=== PATIENT | female | born 1935 | race Caucasian/White ===

== ENCOUNTER 2017-08-29 21:55 | Inpatient (IN) | payer MEDICARE, MEDICAID ==
--- NOTE | 2017-08-29 22:03 | ED Physician Chart ---
ED Chief Complaint/HPI - Patient Information Date Seen:: 08/29/17 Time Seen:: 21:50 Chief Complaint:: abnormal labs History of Present Illness:: Patient had a 11,000 white blood cell count and an abnormal chest x-ray today. Chest x-ray showed right lower lobe infiltrate. Allergies:: Allergies Allergy/AdvReac Type Severity Reaction Status Date / Time meperidine Allergy Verified 12/28/16 19:11 Historian:: EMS Review:: Transfer documents Reviewed ED Review of Systems - Review of Systems General/Constitutional: No fever, No chills Skin: No skin lesions Head: No headache Eyes: No loss of vision ENT: No earache Neck: No neck pain Cardio Vascular: No chest pain, No palpitations Pulmonary: No SOB, Cough GI: No nausea, No vomiting, No diarrhea G/U: No dysuria Musculoskeletal: No bone or joint pain Endocrine: No polyuria, No polydipsia Psychiatric: Prior psych history Hematopoietic: No bruising Allergic/Immuno: No urticaria ED Past Medical History - Past Medical History Past Medical History: Dyslipidemia, Dementia, Other (status post pneumonia; status post sepsis; hyperlipidemia) Family Medical History - Family Member Mother History Unknown: Yes ED Physical Exam - Physical Examination Other Gen/Cons comments:: Chronically ill appearing; verbally nonresponsive Head: Atraumatic Eyes: Lids, conjuctiva normal Skin: Nl inspection ENMT: External ears, nose nl Neck: No JVD Respiratory: Nl effort/Exclusion, Clear to Auscultation Cardio Vascular: RRR Other Cardio Vascular comments:: Heart sounds faint; pulse regular GI: No tenderness/rebounding/guarding Extremities: Normal digits & nails Neuro/Psych: No focal deficits ED Labs/Radiology/EKG Results - Lab Results Results: Laboratory Results - last 24 hr 08/29/17 08/29/17 22:11 22:11 WBC 11.8 H D RBC 2.75 L Hgb 8.3 L Hct 25.9 L MCV 94.4 MCH 30.3 MCHC Differential 32.1 RDW 13.8 Plt Count 494 H D MPV 9.3 Neutrophils % 81.7 H Lymphocytes % 12.5 L Monocytes % 4.0 Eosinophils % 1.6 Basophils % 0.2 Sodium 142 Potassium 4.2 Chloride 113 H Carbon Dioxide 21.3 Anion Gap 11.9 BUN 41 H Creatinine 0.9 Est GFR ( Amer) TNP Est GFR (Non-Af Amer) TNP BUN/Creatinine Ratio 45.6 Glucose 107 H Calcium 9.5 - Radiology Results Comments:: Chest x-ray showed small right basilar infiltrate ED Septic Shock - . Is Septic Shock (SBP<90, OR Lactate>4 mmol\L) present?: No ED Reassessment (Disposition) - Reassessment Reassessment Condition:: Unchanged - Diagnosis Diagnosis:: Anemia; dehydration; pneumonia - Patient Disposition Admitting Medical Physician:: German Patel Condition at Disposition:: Stable, Unchanged
[2017-08-29 22:18] LABS: % BASOPHILS 0.2 % (0.0-2.0); % EOSINOPHILS 1.6 % (0.0-5.0); % LYMPHOCYTES 12.5 % (20.0-50.0); % NEUTROPHILS 81.7 % (40.0-80.0); EOSINOPHILE ABSOLUTE 0.2 Th/cmm (0.1-0.4); HEMATOCRIT 25.9 % (41.0-60); HEMOGLOBIN 8.3 gm/dL (12-16); LYMPHOCYTE ABSOLUTE 1.5 Th/cmm (1.5-3.0); MEAN CELL VOLUME 94.4 fl (81-100); MEAN CORPUSCULAR HEMOGLOBIN 30.3 pg (27.0-31.0); MEAN CORPUSCULAR HGB CONC 32.1 pg (28.0-36.0); MEAN PLATELET VOLUME 9.3 fl; MONOCYTE ABSOLUTE 0.5 Th/cmm (0.3-1.0); NEUTROPHILE ABSOLUTE 9.6 Th/cmm (1.8-8.0); RED BLOOD COUNT 2.75 Mil/cmm (3.80-5.20); RED CELL DISTRIBUTION WIDTH 13.8 % (11.5-20.0)
[2017-08-29 22:20] LABS: PLATELET COUNT 494 Th/cmm (150-400); WHITE BLOOD COUNT 11.8 Th/cmm (4.8-10.8)
[2017-08-29 22:34] LABS: ANION GAP 11.9 (7.0-16.0); BUN - UREA NITROGEN 41 mg/dL (7-25); CALCIUM SERUM 9.5 mg/dL (8.6-10.3); CARBON DIOXIDE 21.3 mEq/L (21.0-31.0); CHLORIDE 113 mEq/L (98-107); CREATININE - SERUM 0.9 mg/dL (0.6-1.2); GLUCOSE 107 mg/dL (70-105); POTASSIUM SERUM 4.2 mEq/L (3.5-5.1); SODIUM SERUM 142 mEq/L (136-145)
[2017-08-29] MEDS ORDERED: Sodium Chloride 0.9% 1,000 ML IV ONE ×2 (23:05→23:12)
[2017-08-29] MEDS ORDERED: Maalox 30 mL Cup PO PRN (23:08)
[2017-08-29] MEDS ORDERED: guaiFENesin 200 MG/10 ML UDC PO PRN (23:08)
[2017-08-29] MEDS ORDERED: Piperacillin Sodium/Tazobact 3.375 gm Vial IV ONE (23:19)
[2017-08-30 02:12] VITALS: BP 128/68
[2017-08-30] MEDS: D5-0.45NS 1,000 ML IV SCH ×2 (04:00→20:53)
[2017-08-30] MEDS: Ipratropium Neb 0.5 mg/2.5 mL UD IH SCH ×4 (08:18→19:59)
[2017-08-30] MEDS: Albuterol Nebulizer 2.5mg/3mL HHN SCH ×4 (08:18→19:59)
--- NOTE | 2017-08-30 08:33 | Diagnostic Imaging Report ---
Exam: Portable chest x-ray HISTORY: Cough. Findings: Portable examination of the chest at 2241 hours reviewed the study compared to prior exam of 12/28/2016 The study demonstrates atelectatic changes in the bases. Infiltrates cannot be excluded. The costophrenic angles are clear bony thorax intact. Lung parenchyma is well aerated. COPD changes are noted IMPRESSION: Basilar atelectasis, but infiltrates cannot be excluded, COPD changes no acute disease.
[2017-08-30] MEDS: POLYETHYLENE GLYCOL 3350 17 GM PACK PO SCH (08:56)
[2017-08-30] MEDS: Calcium Carb/Vit D 500 mg/200 U Tab PO SCH ×2 (08:56→16:25)
[2017-08-30] MEDS: Aspirin 81mg Chewable Tab PO SCH (08:56)
[2017-08-30] MEDS: Ferrous Sulfate 325 MG TAB PO SCH ×2 (08:56→16:25)
[2017-08-30] MEDS ORDERED: LACTOSE REDUCED FOOD PO SCH (09:00)
[2017-08-30] MEDS ORDERED: Probiotic Screen MC PRN (09:15)
--- NOTE | 2017-08-30 12:43 | Internal Medicine Prog Note ---
Internal Medicine Subjective - Subjective Service Date: 08/30/17 ([id number] [facility] dictated) Internal Medicine Objective - Results Result Diagrams: 08/29/17 22:11 08/29/17 22:11 Recent Labs: Laboratory Last Values WBC 11.8 Th/cmm (4.8-10.8) H D 08/29/17 22:11 RBC 2.75 Mil/cmm (3.80-5.20) L 08/29/17 22:11 Hgb 8.3 gm/dL (12-16) L 08/29/17 22:11 Hct 25.9 % (41.0-60) L 08/29/17 22:11 MCV 94.4 fl (81-100) 08/29/17 22:11 MCH 30.3 pg (27.0-31.0) 08/29/17 22:11 MCHC Differential 32.1 pg (28.0-36.0) 08/29/17 22:11 RDW 13.8 % (11.5-20.0) 08/29/17 22:11 Plt Count 494 Th/cmm (150-400) H D 08/29/17 22:11 MPV 9.3 fl 08/29/17 22:11 Neutrophils % 81.7 % (40.0-80.0) H 08/29/17 22:11 Lymphocytes % 12.5 % (20.0-50.0) L 08/29/17 22:11 Monocytes % 4.0 % (2.0-10.0) 08/29/17 22:11 Eosinophils % 1.6 % (0.0-5.0) 08/29/17 22:11 Basophils % 0.2 % (0.0-2.0) 08/29/17 22:11 Sodium 142 mEq/L (136-145) 08/29/17 22:11 Potassium 4.2 mEq/L (3.5-5.1) 08/29/17 22:11 Chloride 113 mEq/L (98-107) H 08/29/17 22:11 Carbon Dioxide 21.3 mEq/L (21.0-31.0) 08/29/17 22:11 Anion Gap 11.9 (7.0-16.0) 08/29/17 22:11 BUN 41 mg/dL (7-25) H 08/29/17 22:11 Creatinine 0.9 mg/dL (0.6-1.2) 08/29/17 22:11 Est GFR ( Amer) TNP 08/29/17 22:11 Est GFR (Non-Af Amer) TNP 08/29/17 22:11 BUN/Creatinine Ratio 45.6 08/29/17 22:11 Glucose 107 mg/dL (70-105) H 08/29/17 22:11 Calcium 9.5 mg/dL (8.6-10.3) 08/29/17 22:11 - Physical Exam Vitals and I&O: Vital Signs Temp 98.2 F 08/30/17 12:00 Pulse 76 08/30/17 12:00 Resp 18 08/30/17 12:00 BP 136/70 08/30/17 12:00 Pulse Ox 94 08/30/17 11:31 Intake & Output 08/29/17 08/30/17 08/30/17 18:59 06:59 18:59 Weight (lbs) 131 lb 6.4 oz Other: Stool Characteristics Soft Soft Formed Formed Brown Brown Active Medications: Current Medications Acetaminophen (Tylenol) 650 mg PO Q4H PRN PRN Reason: Pain Or Fever above 101 Stop: 10/28/17 23:07 Al Hydrox/Mg Hydrox/Simethicone (Maalox) 30 ml PO Q6H PRN PRN Reason: Dyspepsia Stop: 10/28/17 23:07 Albuterol Sulfate (Albuterol 2.5mg/3ml Neb Ud) 2.5 mg HHN QIDRT [facility] Stop: 10/29/17 06:59 Last Admin: 08/30/17 11:29 Dose: 2.5 mg Aspirin (Aspirin Chewable) 81 mg PO DAILY [facility] Stop: 10/29/17 08:59 Last Admin: 08/30/17 08:56 Dose: 81 mg Bupropion HCl (Wellbutrin Sr) 150 mg PO DAILY [facility] PRN Reason: Protocol Stop: 10/29/17 08:59 Last Admin: 08/30/17 08:56 Dose: 150 mg Buspirone HCl (Buspar) 2.5 mg PO BID [facility] PRN Reason: Protocol Stop: 10/29/17 08:59 Last Admin: 02/06/18 08:56 Dose: 2.5 mg Calcium/Vitamin D (Oscal W/Vitamin D) 1 tab PO BID [facility] Stop: 10/29/17 08:59 Last Admin: 08/30/17 08:56 Dose: 1 tab Ferrous Sulfate (Iron) 325 mg PO BID [facility] Stop: 10/29/17 08:59 Last Admin: 08/30/17 08:56 Dose: 325 mg Guaifenesin (Robitussin) 200 mg PO Q4HR PRN PRN Reason: Cough or Congestion Stop: 10/28/17 23:07 Heparin Sodium (Porcine) (Heparin) 5,000 units SUBQ Q12HR [facility] Stop: 10/29/17 08:59 Last Admin: 08/30/17 08:56 Dose: 5,000 units Dextrose/Sodium Chloride (D5-0.45ns) 1,000 mls @ 80 mls/hr IV .[id number] [facility] Stop: 10/28/17 23:14 Last Admin: 08/30/17 04:00 Dose: 80 mls/hr Cefepime HCl 1 gm/ Dextrose 50 mls @ 100 mls/hr IV Q12HR [facility] Stop: 10/29/17 08:59 Last Admin: 08/30/17 08:55 Dose: 100 mls/hr Ipratropium [place] (Atrovent Neb 0.5mg/2.5ml) 0.5 mg IH QIDRT [facility] Stop: 10/29/17 06:59 Last Admin: 08/30/17 11:29 Dose: 0.5 mg Lactobacillus Rhamnosus (Culturelle 15b) 1 each PO DAILY [facility] Stop: 10/30/17 08:59 Lisinopril (Zestril) 20 mg PO BID [facility] Stop: 10/29/17 08:59 Last Admin: 08/30/17 08:55 Dose: 20 mg Lorazepam (Ativan) 0.5 mg PO Q6HR PRN; Protocol PRN Reason: Anxiety Stop: 10/28/17 23:05 Lorazepam (Ativan) 1 mg IV Q4H PRN; Protocol PRN Reason: Seizure Stop: 10/28/17 23:07 Last Admin: 08/30/17 06:56 Dose: 1 mg Miscellaneous (Probiotic Screen) 1 ea [facility] PRN PRN PRN Reason: PROTOCOL Stop: 10/29/17 09:14 Miscellaneous (Vte Chemical Prophylaxis Screen/ Admission) 1 ea [facility] PRN PRN PRN Reason: PROTOCOL Stop: 10/29/17 12:44 Olanzapine (Zyprexa) 5 mg PO HS [facility] PRN Reason: Protocol Stop: 10/29/17 20:59 Ondansetron HCl (Zofran) 4 mg IV Q8H PRN PRN Reason: Nausea / Vomiting Stop: 10/28/17 23:07 Polyethylene Glycol (Miralax) 17 gm PO DAILY [facility] Stop: 10/29/17 08:59 Last Admin: 08/30/17 08:56 Dose: 17 gm - Procedures Procedures: Procedures Procedure Code Date INTRODUCTION OF SERUM/TOX/VACCINE INTO MUSCLE, PERC APPROACH [id number] 12/28/16
[2017-08-30] MEDS ORDERED: VTE Chemical Prophylaxis Screen/Admission MC PRN (12:45)
--- NOTE | 2017-08-30 12:53 | History & Physical ---
ADMIT DATE: 08/30/2017 CHIEF COMPLAINT: Abnormal chest x-ray. HISTORY OF PRESENT ILLNESS: This is an 82-year-old female who is a resident of [facility] who is well known to me. I was called on this patient due to a chest x-ray showing right lower lobe infiltrates as well as with WBC of 11,000. The patient's family requested the patient to be admitted to the hospital as well. PAST MEDICAL HISTORY: Dyslipidemia, dementia, pneumonia, sepsis, hyperlipidemia. PAST SURGICAL HISTORY: Unknown. SOCIAL HISTORY: The patient is a long term resident, transferred for nursing care. FAMILY HISTORY: Noncontributory. REVIEW OF SYSTEMS: Unable to obtain due to patient's mental status. PHYSICAL EXAMINATION: GENERAL: This is an elderly female, awake with confusion, no apparent distress. VITAL SIGNS: Temperature 99.2, heart rate 76, blood pressure 136/70, respiration 18. HEENT: Head normocephalic, atraumatic. NECK: Supple. No mass. LUNGS: Scattered rhonchi. CARDIOVASCULAR: Regular rate and rhythm. ABDOMEN: Soft, nontender. DIAGNOSTICS: The patient had a chest x-ray done and the impression is basilar atelectasis, infiltrate cannot be excluded, COPD changes. LABORATORY DATA: WBC 11.8, H and H 8.3 and 25.9, platelet of 494. Sodium 142, potassium 4.2, chloride 113, BUN 41, creatinine 0.9. ASSESSMENT: Pneumonia, leukocytosis, acute renal insufficiency, anemia, dementia. PLAN: The patient was to be admitted to the med/surg. We will keep the patient on IV antibiotics of Maxipime 1 gram IV every 12 hours. Monitor patient's labs and IV fluids for hydration, bronchodilators, supplemental oxygen. We will continue to follow this patient. JOB# [id number]
--- NOTE | 2017-08-30 14:53 | Diagnostic Imaging Report ---
Head CT without intravenous contrast Indication: Fluid draining from the ears and neck Comparison: Head CT on 01/07/2017 Technique: Axial images were obtained from the vertex to the skull base without IV contrast. Coronal reconstructions were made. Total DLP: 680, CTDI34 FINDINGS: Images of the brain obtained without contrast demonstrate no evidence of an acute hemorrhage. Atrophy is noted. Mild white matter disease is noted. The ventricles and basal cisterns are patent. No mass effect or midline shift. There is diffuse opacification of bilateral mastoid air cells. No obvious erosions identified. Paranasal sinus inflammatory disease is noted including partial opacification left posterior ethmoid air cells and left sphenoid sinus with air-fluid level of the left sphenoid sinus. No evidence of a skull fracture or focal soft tissue swelling. IMPRESSION: No evidence of acute intracranial hemorrhage Atrophy. Mild supratentorial white matter disease which is nonspecific and may be due to chronic microvessel ischemia. Diffuse bilateral mastoid air cell opacification. Please correlate clinically for otomastoiditis. Sinus inflammatory disease greatest within the left sphenoid sinus with small air-fluid level noted.
--- NOTE | 2017-08-30 14:57 | Diagnostic Imaging Report ---
CT cervical spine without IV contrast HISTORY: Fluid drained from the neck and ears COMPARISON: Head CT the same day Technique: Axial images were obtained from the skull base to the upper thoracic spine without IV contrast. Multiplanar reconstructions were made. Total DLP: 401, CTDI17 FINDINGS: Exam is limited due to motion. There is loss of the cervical lordosis. No gross fracture is identified. There is 2 mm anterolisthesis of C3 on C4. Extensive multilevel facet and discogenic degenerative changes are noted with multilevel disc space loss of height and multilevel spinal canal and neural foraminal encroachment. No prevertebral soft tissue swelling. Markedly enlarged thyroid gland is noted. Partially visualized right pleural effusion is noted. Atherosclerosis is noted. IMPRESSION: Limited exam due to motion. No gross fracture identified. Loss of the cervical lordosis. Extensive degenerative changes. 2 mm anterolisthesis of C3 on C4 likely due to facet arthropathy. Markedly enlarged thyroid gland. Consider follow-up with ultrasound. Right pleural effusion partially visualized.
[2017-08-30 18:26] LABS: URINE MICROSCOPIC INDICATED? YES; URINE SOURCE CLEAN C
[2017-08-30 18:27] LABS: URINE BILIRUBIN NEGATIVE (NEGATIVE); URINE BLOOD NEGATIVE (NEGATIVE); URINE GLUCOSE (UA) NEGATIVE (NEGATIVE); URINE KETONE NEGATIVE (NEGATIVE); URINE LEUKOCYTE ESTERASE NEGATIVE (NEGATIVE); URINE NITRATE NEGATIVE (NEGATIVE); URINE PROTEIN NEGATIVE (NEGATIVE); URINE UROBILINOGEN 0.2 E.U./dL (0.2 - 1.0)
[2017-08-30 18:56] LABS: URINE CLARITY CLEAR (CLEAR); URINE COLOR YELLOW; URINE EPITHELIAL CELLS NONE SEEN /lpf (FEW); URINE RBC NONE SEEN /hpf (0-5); URINE WBC NONE SEEN /hpf (0-5)
[2017-08-30 18:57] LABS: URINE BACTERIA NONE SEEN /hpf (NONE SEEN)
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
[2017-08-31] MEDS: Ipratropium Neb 0.5 mg/2.5 mL UD IH SCH ×4 (08:24→19:44)
[2017-08-31] MEDS: Albuterol Nebulizer 2.5mg/3mL HHN SCH ×4 (08:24→19:44)
[2017-08-31] MEDS: Aspirin 81mg Chewable Tab PO SCH (09:18)
[2017-08-31] MEDS: Lactobacillus Rhamnosus GG 15 Billion CFU CAP.SPRINK PO SCH (09:18)
[2017-08-31] MEDS: Calcium Carb/Vit D 500 mg/200 U Tab PO SCH ×2 (09:18→18:01)
[2017-08-31] MEDS: Ferrous Sulfate 325 MG TAB PO SCH ×2 (09:29→18:02)
[2017-08-31] MEDS: POLYETHYLENE GLYCOL 3350 17 GM PACK PO SCH (09:30)
--- NOTE | 2017-08-31 12:46 | Internal Medicine Prog Note ---
Internal Medicine Subjective - Subjective Service Date: 08/31/17 Patient seen and examined:: with staff Patient is:: awake, verbal, confused Per staff patient has:: tolerating meds Internal Medicine Objective - Results Result Diagrams: 08/29/17 22:11 08/29/17 22:11 Recent Labs: Laboratory Last Values WBC 11.8 Th/cmm (4.8-10.8) H D 08/29/17 22:11 RBC 2.75 Mil/cmm (3.80-5.20) L 08/29/17 22:11 Hgb 8.3 gm/dL (12-16) L 08/29/17 22:11 Hct 25.9 % (41.0-60) L 08/29/17 22:11 MCV 94.4 fl (81-100) 08/29/17 22:11 MCH 30.3 pg (27.0-31.0) 08/29/17 22:11 MCHC Differential 32.1 pg (28.0-36.0) 08/29/17 22:11 RDW 13.8 % (11.5-20.0) 08/29/17 22:11 Plt Count 494 Th/cmm (150-400) H D 08/29/17 22:11 MPV 9.3 fl 08/29/17 22:11 Neutrophils % 81.7 % (40.0-80.0) H 08/29/17 22:11 Lymphocytes % 12.5 % (20.0-50.0) L 08/29/17 22:11 Monocytes % 4.0 % (2.0-10.0) 08/29/17 22:11 Eosinophils % 1.6 % (0.0-5.0) 08/29/17 22:11 Basophils % 0.2 % (0.0-2.0) 08/29/17 22:11 Sodium 142 mEq/L (136-145) 08/29/17 22:11 Potassium 4.2 mEq/L (3.5-5.1) 08/29/17 22:11 Chloride 113 mEq/L (98-107) H 08/29/17 22:11 Carbon Dioxide 21.3 mEq/L (21.0-31.0) 08/29/17 22:11 Anion Gap 11.9 (7.0-16.0) 08/29/17 22:11 BUN 41 mg/dL (7-25) H 08/29/17 22:11 Creatinine 0.9 mg/dL (0.6-1.2) 08/29/17 22:11 Est GFR ( Amer) TNP 08/29/17 22:11 Est GFR (Non-Af Amer) TNP 08/29/17 22:11 BUN/Creatinine Ratio 45.6 08/29/17 22:11 Glucose 107 mg/dL (70-105) H 08/29/17 22:11 Calcium 9.5 mg/dL (8.6-10.3) 08/29/17 22:11 Urine Source CLEAN C 08/30/17 16:58 Urine Color YELLOW 08/30/17 16:58 Urine Clarity CLEAR (CLEAR) 08/30/17 16:58 Urine pH 6.0 (4.6 - 8.0) 08/30/17 16:58 Ur Specific [place] 1.015 (1.005-1.030) 08/30/17 16:58 Urine Protein NEGATIVE mg/dL (NEGATIVE) 08/30/17 16:58 Urine Glucose (UA) NEGATIVE mg/dL (NEGATIVE) 08/30/17 16:58 Urine Ketones NEGATIVE mg/dL (NEGATIVE) 08/30/17 16:58 Urine Blood NEGATIVE (NEGATIVE) 08/30/17 16:58 Urine Nitrate NEGATIVE (NEGATIVE) 08/30/17 16:58 Urine Bilirubin NEGATIVE (NEGATIVE) 08/30/17 16:58 Urine Urobilinogen 0.2 E.U./dL (0.2 - 1.0) 08/30/17 16:58 Ur Leukocyte Esterase NEGATIVE (NEGATIVE) 08/30/17 16:58 Urine RBC NONE SEEN /hpf (0-5) 08/30/17 16:58 Urine WBC NONE SEEN /hpf (0-5) 08/30/17 16:58 Ur Epithelial Cells NONE SEEN /lpf (FEW) 08/30/17 16:58 Urine Bacteria NONE SEEN /hpf (NONE SEEN) 08/30/17 16:58 - Physical Exam Vitals and I&O: Vital Signs Temp 98.7 F 08/31/17 04:00 Pulse 84 08/31/17 11:34 Resp 20 08/31/17 11:34 BP 135/50 08/31/17 09:18 Pulse Ox 95 08/31/17 11:34 Intake & Output 08/30/17 08/31/17 08/31/17 18:59 06:59 18:59 Intake Total 1050 250 Balance 1050 250 Weight (lbs) 135 lb 6.4 oz Intake: Intake, IV Amount 1050 50 Cefepime 1 gm In Dextrose 50 50 5% 50 ml @ 100 mls/hr IV Q12HR [facility] Rx#:[id number] D5-0.45NS 1,000 ml @ 80 1000 mls/hr IV .[id number] [facility] Rx #:[id number] Oral 200 Other: # Voids 3 # Bowel Movements 2 Stool Characteristics Soft Soft Soft Formed Formed Formed Brown Brown Brown Active Medications: Current Medications Acetaminophen (Tylenol) 650 mg PO Q4H PRN PRN Reason: Pain Or Fever above 101 Stop: 10/28/17 23:07 Al Hydrox/Mg Hydrox/Simethicone (Maalox) 30 ml PO Q6H PRN PRN Reason: Dyspepsia Stop: 10/28/17 23:07 Albuterol Sulfate (Albuterol 2.5mg/3ml Neb Ud) 2.5 mg HHN QIDRT [facility] Stop: 10/29/17 06:59 Last Admin: 08/31/17 11:34 Dose: 2.5 mg Aspirin (Aspirin Chewable) 81 mg PO DAILY [facility] Stop: 10/29/17 08:59 Last Admin: 08/31/17 09:18 Dose: 81 mg Buspirone HCl (Buspar) 5 mg PO BID [facility] PRN Reason: Protocol Stop: 10/29/17 17:53 Calcium/Vitamin D (Oscal W/Vitamin D) 1 tab PO BID [facility] Stop: 10/29/17 08:59 Last Admin: 08/31/17 09:18 Dose: 1 tab Ferrous Sulfate (Iron) 325 mg PO BID [facility] Stop: 10/29/17 08:59 Last Admin: 08/31/17 09:29 Dose: 325 mg Guaifenesin (Robitussin) 200 mg PO Q4HR PRN PRN Reason: Cough or Congestion Stop: 10/28/17 23:07 Heparin Sodium (Porcine) (Heparin) 5,000 units SUBQ Q12HR [facility] Stop: 10/29/17 08:59 Last Admin: 08/31/17 09:30 Dose: 5,000 units Dextrose/Sodium Chloride (D5-0.45ns) 1,000 mls @ 80 mls/hr IV .[id number] [facility] Stop: 10/28/17 23:14 Last Admin: 08/30/17 20:53 Dose: 80 mls/hr Cefepime HCl 1 gm/ Sodium (Chloride) 50 mls @ 100 mls/hr IV DAILY [facility] Stop: 10/31/17 08:59 Ipratropium [place] (Atrovent Neb 0.5mg/2.5ml) 0.5 mg IH QIDRT [facility] Stop: 10/29/17 06:59 Last Admin: 08/31/17 11:34 Dose: 0.5 mg Lactobacillus Rhamnosus (Culturelle 15b) 1 each PO DAILY [facility] Stop: 10/30/17 08:59 Last Admin: 08/31/17 09:18 Dose: 1 each Lisinopril (Zestril) 20 mg PO BID [facility] Stop: 10/29/17 08:59 Last Admin: 08/31/17 09:18 Dose: 20 mg Lorazepam (Ativan) 0.5 mg PO Q6HR PRN; Protocol PRN Reason: Anxiety Stop: 10/28/17 23:05 Last Admin: 08/30/17 21:07 Dose: 0.5 mg Lorazepam (Ativan) 1 mg IV Q4H PRN; Protocol PRN Reason: Seizure Stop: 10/28/17 23:07 Last Admin: 08/30/17 06:56 Dose: 1 mg Miscellaneous (Probiotic Screen) 1 ea PRN PRN PRN Reason: PROTOCOL Stop: 10/29/17 09:14 Miscellaneous (Vte Chemical Prophylaxis Screen/ Admission) 1 ea PRN PRN PRN Reason: PROTOCOL Stop: 10/29/17 12:44 Miscellaneous (Clinical Monitoring) 1 ea PRN PRN PRN Reason: CEFEPIME RENAL DOSE Stop: 10/30/17 10:15 Olanzapine (Zyprexa) 5 mg PO HS [facility] PRN Reason: Protocol Stop: 10/29/17 20:59 Last Admin: 08/30/17 21:07 Dose: 5 mg Ondansetron HCl (Zofran) 4 mg IV Q8H PRN PRN Reason: Nausea / Vomiting Stop: 10/28/17 23:07 Polyethylene Glycol (Miralax) 17 gm PO DAILY [facility] Stop: 10/29/17 08:59 Last Admin: 08/31/17 09:30 Dose: 17 gm General: weak HEENT: NC/AT, PERRLA Neck: Supple Lungs: CTAB Cardiovascular: RRR, Normal S1, Normal S2 Abdomen: soft, non-tender, non-distended, positive bowel sound Extremities: excoriation Neurological: alert - Procedures Procedures: Procedures Procedure Code Date INTRODUCTION OF SERUM/TOX/VACCINE INTO MUSCLE, PERC APPROACH [id number] 12/28/16 Internal Medicine Assmt/Plan - Assessment Assessment: pna leukocytosis acute renal insufficiency anemia dementia - Plan Plan: continue ivabx bronchodilators supplemental oxygen ivf for hydration continue current orders
[2017-08-31] MEDS: D5-0.45NS 1,000 ML IV SCH (15:56)
--- NOTE | 2017-09-01 00:33 | Progress Notes ---
DATE: 08/31/2017 SUBJECTIVE: The patient was seen, chart reviewed, discussed with staff, much less anxious, less irritable, less agitated today. The patient is superficial, smiling, affect little bit on the low side. MENTAL STATUS EXAMINATION: The patient is oriented to person, not oriented to time or place. Thought process fragmented. Insight is limited. Even with [place] speaking staff, the patient is not able to communicate well. ASSESSMENT: The patient is much less agitated, was somewhat confused. PLAN: Will continue to monitor closely. Continue current medication regimen. Continue supportive measures. Will monitor p.o. intake. JOB# [id number]
[2017-09-01] MEDS: Ipratropium Neb 0.5 mg/2.5 mL UD IH SCH ×4 (07:19→18:56)
[2017-09-01] MEDS: Albuterol Nebulizer 2.5mg/3mL HHN SCH ×4 (07:19→18:56)
--- NOTE | 2017-09-01 08:30 | Diagnostic Imaging Report ---
CHEST X-RAY: AP view INDICATION: Pneumonia COMPARISON: 08/29/2017 FINDINGS: Developing hazy right mid to right lower lung zone infiltrate is noted with small right effusion. Cardiomegaly is noted with atherosclerosis. IMPRESSION: Developing hazy right mid to right lower lung zone infiltrate and small right effusion. Cardiomegaly and atherosclerotic vascular disease.
[2017-09-01 08:43] LABS: % BASOPHILS 0.4 % (0.0-2.0); % EOSINOPHILS 3.7 % (0.0-5.0); % LYMPHOCYTES 25.7 % (20.0-50.0); % MONOCYTES 5.3 % (2.0-10.0); % NEUTROPHILS 64.9 % (40.0-80.0); EOSINOPHILE ABSOLUTE 0.2 Th/cmm (0.1-0.4); HEMATOCRIT 24.6 % (41.0-60); HEMOGLOBIN 8.2 gm/dL (12-16); LYMPHOCYTE ABSOLUTE 1.5 Th/cmm (1.5-3.0); MEAN CELL VOLUME 93.1 fl (81-100); MEAN CORPUSCULAR HGB CONC 33.3 pg (28.0-36.0); MEAN PLATELET VOLUME 8.7 fl; MONOCYTE ABSOLUTE 0.3 Th/cmm (0.3-1.0); PLATELET COUNT 540 Th/cmm (150-400); RED BLOOD COUNT 2.64 Mil/cmm (3.80-5.20); RED CELL DISTRIBUTION WIDTH 13.2 % (11.5-20.0)
[2017-09-01 08:55] LABS: ALB/GLOB RATIO 0.9 (1.0-1.8); ALBUMIN 2.9 gm/dL (3.7-5.3); ALKALINE PHOSPHATASE 87 U/L (34-104); ANION GAP 9.4 (7.0-16.0); BILIRUBIN,TOTAL 0.4 mg/dL (0.3-1.0); BUN - UREA NITROGEN 10 mg/dL (7-25); CALCIUM SERUM 9.5 mg/dL (8.6-10.3); CHLORIDE 108 mEq/L (98-107); CREATININE - SERUM 0.8 mg/dL (0.6-1.2); GLUCOSE 120 mg/dL (70-105); MAGNESIUM 1.7 mg/dL (1.9-2.7); POTASSIUM SERUM 3.4 mEq/L (3.5-5.1); SGOT 12 U/L (13-39); SGPT/ALT 13 U/L (7-52); SODIUM SERUM 138 mEq/L (136-145); TOTAL PROTEIN,SERUM 6.2 gm/dL (6.0-8.3)
[2017-09-01] MEDS: Calcium Carb/Vit D 500 mg/200 U Tab PO SCH ×2 (09:40→17:31)
[2017-09-01] MEDS: Aspirin 81mg Chewable Tab PO SCH (09:40)
[2017-09-01] MEDS: Ferrous Sulfate 325 MG TAB PO SCH ×2 (09:41→17:30)
[2017-09-01] MEDS: Lactobacillus Rhamnosus GG 15 Billion CFU CAP.SPRINK PO SCH (09:41)
[2017-09-01] MEDS: POLYETHYLENE GLYCOL 3350 17 GM PACK PO SCH (09:43)
[2017-09-01] MEDS: Cefepime 1 GM in Sodium Chloride 0.9% 50 ML IV SCH (11:04)
[2017-09-01] MEDS ORDERED: Mag Sulfate 2gm/50mL Premix 2 GM/50 ML BAG IV ONE (12:59)
[2017-09-01] MEDS ORDERED: Potassium Chloride 20 mEq ER Tab PO ONE (12:59)
--- NOTE | 2017-09-01 13:22 | Internal Medicine Prog Note ---
Internal Medicine Subjective - Subjective Service Date: 09/01/17 Patient is:: awake, verbal, confused Per staff patient has:: tolerating meds Internal Medicine Objective - Results Result Diagrams: 09/01/17 08:31 09/01/17 08: Recent Labs: Laboratory Last Values WBC 6.0 Th/cmm (4.8-10.8) D 09/01/17 08: RBC 2.64 Mil/cmm (3.80-5.20) L 09/01/17 08:31 Hgb 8.2 gm/dL (12-16) L 09/01/17 08:31 Hct 24.6 % (41.0-60) L 09/01/17 08:31 MCV 93.1 fl (81-100) 09/01/17 08: MCH 31.0 pg (27.0-31.0) 09/01/17 08: MCHC Differential 33.3 pg (28.0-36.0) 09/01/17 08: RDW 13.2 % (11.5-20.0) 09/01/17 08: Plt Count 540 Th/cmm (150-400) H 09/01/17 08:31 MPV 8.7 fl 09/01/17 08:31 Neutrophils % 64.9 % (40.0-80.0) 09/01/17 08: Lymphocytes % 25.7 % (20.0-50.0) 09/01/17 08: Monocytes % 5.3 % (2.0-10.0) 09/01/17 08: Eosinophils % 3.7 % (0.0-5.0) 09/01/17 08: Basophils % 0.4 % (0.0-2.0) 09/01/17 08:31 Sodium 138 mEq/L (136-145) 09/01/17 08:31 Potassium 3.4 mEq/L (3.5-5.1) L 09/01/17 08: Chloride 108 mEq/L (98-107) H 09/01/17 08:31 Carbon Dioxide 24.0 mEq/L (21.0-31.0) 09/01/17 08: Anion Gap 9.4 (7.0-16.0) 09/01/17 08:31 BUN 10 mg/dL (7-25) 09/01/17 08:31 Creatinine 0.8 mg/dL (0.6-1.2) 09/01/17 08:31 Est GFR ( Amer) TNP 09/01/17 08:31 Est GFR (Non-Af Amer) TNP 09/01/17 08:31 BUN/Creatinine Ratio 12.5 09/01/17 08:31 Glucose 120 mg/dL (70-105) H 09/01/17 08:31 Calcium 9.5 mg/dL (8.6-10.3) 09/01/17 08:31 Magnesium 1.7 mg/dL (1.9-2.7) L 09/01/17 08:31 Total Bilirubin 0.4 mg/dL (0.3-1.0) 09/01/17 08:31 AST 12 U/L (13-39) L 09/01/17 08:31 ALT 13 U/L (7-52) 09/01/17 08:31 Alkaline Phosphatase 87 U/L (34-104) 09/01/17 08:31 B-Natriuretic Peptide 424.0 pg/mL (5.0-100.0) H 09/01/17 08:31 Total Protein 6.2 gm/dL (6.0-8.3) 09/01/17 08:31 Albumin 2.9 gm/dL (3.7-5.3) L 09/01/17 08:31 Globulin 3.3 gm/dL 09/01/17 08:31 Albumin/Globulin Ratio 0.9 (1.0-1.8) L 09/01/17 08:31 TSH 1.17 uIU/ml (0.34-5.60) 09/01/17 08:31 Urine Source CLEAN C 08/30/17 16:58 Urine Color YELLOW 08/30/17 16:58 Urine Clarity CLEAR (CLEAR) 08/30/17 16:58 Urine pH 6.0 (4.6 - 8.0) 08/30/17 16:58 Ur Specific [place] 1.015 (1.005-1.030) 08/30/17 16:58 Urine Protein NEGATIVE mg/dL (NEGATIVE) 08/30/17 16:58 Urine Glucose (UA) NEGATIVE mg/dL (NEGATIVE) 08/30/17 16:58 Urine Ketones NEGATIVE mg/dL (NEGATIVE) 08/30/17 16:58 Urine Blood NEGATIVE (NEGATIVE) 08/30/17 16:58 Urine Nitrate NEGATIVE (NEGATIVE) 08/30/17 16:58 Urine Bilirubin NEGATIVE (NEGATIVE) 08/30/17 16:58 Urine Urobilinogen 0.2 E.U./dL (0.2 - 1.0) 08/30/17 16:58 Ur Leukocyte Esterase NEGATIVE (NEGATIVE) 08/30/17 16:58 Urine RBC NONE SEEN /hpf (0-5) 08/30/17 16:58 Urine WBC NONE SEEN /hpf (0-5) 08/30/17 16:58 Ur Epithelial Cells NONE SEEN /lpf (FEW) 08/30/17 16:58 Urine Bacteria NONE SEEN /hpf (NONE SEEN) 08/30/17 16:58 - Physical Exam Vitals and I&O: Vital Signs Temp 98.1 F 09/01/17 12:10 Pulse 91 09/01/17 12:10 Resp 18 09/01/17 12:10 BP 135/66 09/01/17 12:10 Pulse Ox 94 09/01/17 11:19 Intake & Output 08/31/17 09/01/17 09/01/17 18:59 06:59 18:59 Intake Total 1600 Balance 1600 Weight (lbs) 135 lb 6.4 oz 135 lb Intake: Intake, IV Amount 1000 D5-0.45NS 1,000 ml @ 80 1000 mls/hr IV .[id number] [facility] Rx #:[id number] Oral 600 Other: # Voids 2 # Bowel Movements 1 Stool Characteristics Soft Soft Formed Formed Brown Brown Active Medications: Current Medications Acetaminophen (Tylenol) 650 mg PO Q4H PRN PRN Reason: Pain Or Fever above 101 Stop: 10/28/17 23:07 Al Hydrox/Mg Hydrox/Simethicone (Maalox) 30 ml PO Q6H PRN PRN Reason: Dyspepsia Stop: 10/28/17 23:07 Albuterol Sulfate (Albuterol 2.5mg/3ml Neb Ud) 2.5 mg HHN QIDRT [facility] Stop: 10/29/17 06:59 Last Admin: 09/01/17 11:18 Dose: 2.5 mg Aspirin (Aspirin Chewable) 81 mg PO DAILY [facility] Stop: 10/29/17 08:59 Last Admin: 09/01/17 09:40 Dose: 81 mg Buspirone HCl (Buspar) 5 mg PO BID [facility] PRN Reason: Protocol Stop: 10/29/17 17:53 Last Admin: 09/01/17 09:42 Dose: 5 mg Calcium/Vitamin D (Oscal W/Vitamin D) 1 tab PO BID [facility] Stop: 10/29/17 08:59 Last Admin: 09/01/17 09:40 Dose: 1 tab Ferrous Sulfate (Iron) 325 mg PO BID [facility] Stop: 10/29/17 08:59 Last Admin: 09/01/17 09:41 Dose: 325 mg Guaifenesin (Robitussin) 200 mg PO Q4HR PRN PRN Reason: Cough or Congestion Stop: 10/28/17 23:07 Last Admin: 08/31/17 21:29 Dose: 200 mg Heparin Sodium (Porcine) (Heparin) 5,000 units SUBQ Q12HR [facility] Stop: 10/29/17 08:59 Last Admin: 09/01/17 10:03 Dose: 5,000 units Dextrose/Sodium Chloride (D5-0.45ns) 1,000 mls @ 80 mls/hr IV .[id number] [facility] Stop: 10/28/17 23:14 Last Admin: 08/31/17 15:56 Dose: 80 mls/hr Cefepime HCl 1 gm/ Sodium (Chloride) 50 mls @ 100 mls/hr IV DAILY [facility] Stop: 10/31/17 08:59 Last Admin: 09/01/17 11:04 Dose: 100 mls/hr Magnesium Sulfate (Magnesium Sulfate Premix) 2 gm in 50 mls @ 25 mls/hr IV X1 ONE Stop: 09/01/17 14:58 Ipratropium [place] (Atrovent Neb 0.5mg/2.5ml) 0.5 mg IH QIDRT [facility] Stop: 10/29/17 06:59 Last Admin: 09/01/17 11:18 Dose: 0.5 mg Lactobacillus Rhamnosus (Culturelle 15b) 1 each PO DAILY [facility] Stop: 10/30/17 08:59 Last Admin: 09/01/17 09:41 Dose: 1 each Lisinopril (Zestril) 20 mg PO BID [facility] Stop: 10/29/17 08:59 Last Admin: 09/01/17 09:42 Dose: 20 mg Lorazepam (Ativan) 0.5 mg PO Q6HR PRN; Protocol PRN Reason: Anxiety Stop: 10/28/17 23:05 Last Admin: 08/31/17 18:02 Dose: 0.5 mg Lorazepam (Ativan) 1 mg IV Q4H PRN; Protocol PRN Reason: Seizure Stop: 10/28/17 23:07 Last Admin: 08/30/17 06:56 Dose: 1 mg Miscellaneous (Probiotic Screen) 1 ea PRN PRN PRN Reason: PROTOCOL Stop: 10/29/17 09:14 Miscellaneous (Vte Chemical Prophylaxis Screen/ Admission) 1 ea PRN PRN PRN Reason: PROTOCOL Stop: 10/29/17 12:44 Miscellaneous (Clinical Monitoring) 1 ea PRN PRN PRN Reason: CEFEPIME RENAL DOSE Stop: 10/30/17 10:15 Olanzapine (Zyprexa) 5 mg PO HS [facility] PRN Reason: Protocol Stop: 10/29/17 20:59 Last Admin: 08/31/17 21:29 Dose: 5 mg Ondansetron HCl (Zofran) 4 mg IV Q8H PRN PRN Reason: Nausea / Vomiting Stop: 10/28/17 23:07 Polyethylene Glycol (Miralax) 17 gm PO DAILY [facility] Stop: 10/29/17 08:59 Last Admin: 09/01/17 09:43 Dose: 17 gm General: weak HEENT: NC/AT, PERRLA Neck: Supple Lungs: CTAB Cardiovascular: RRR, Normal S1, Normal S2 Abdomen: soft, non-tender, non-distended, positive bowel sound Extremities: excoriation Neurological: alert - Procedures Procedures: Procedures Procedure Code Date INTRODUCTION OF SERUM/TOX/VACCINE INTO MUSCLE, PERC APPROACH [id number] 12/28/16 Internal Medicine Assmt/Plan - Assessment Assessment: pna leukocytosis acute renal insufficiency anemia dementia - Plan Plan: continue ivabx bronchodilators supplemental oxygen ivf for hydration continue current orders
[2017-09-01] MEDS: D5-0.45NS 1,000 ML IV SCH (20:49)
[2017-09-02] MEDS: Albuterol Nebulizer 2.5mg/3mL HHN SCH ×3 (07:37→16:13)
[2017-09-02] MEDS: Ipratropium Neb 0.5 mg/2.5 mL UD IH SCH ×2 (07:37→12:50)
[2017-09-02] MEDS: D5-0.45NS 1,000 ML IV SCH (09:42)
[2017-09-02] MEDS: Ferrous Sulfate 325 MG TAB PO SCH ×2 (09:43→17:09)
[2017-09-02] MEDS: POLYETHYLENE GLYCOL 3350 17 GM PACK PO SCH (09:43)
[2017-09-02] MEDS: Lactobacillus Rhamnosus GG 15 Billion CFU CAP.SPRINK PO SCH (09:44)
[2017-09-02] MEDS: Aspirin 81mg Chewable Tab PO SCH (09:45)
[2017-09-02] MEDS: Calcium Carb/Vit D 500 mg/200 U Tab PO SCH ×2 (09:45→17:09)
[2017-09-02] MEDS: Cefepime 1 GM in Sodium Chloride 0.9% 50 ML IV SCH (09:45)
--- NOTE | 2017-09-02 15:25 | Internal Medicine Prog Note ---
Internal Medicine Subjective - Subjective Service Date: 09/02/17 Patient is:: awake, verbal, confused Per staff patient has:: tolerating meds Internal Medicine Objective - Results Result Diagrams: 09/01/17 08:31 09/01/17 08: Recent Labs: Laboratory Last Values WBC 6.0 Th/cmm (4.8-10.8) D 09/01/17 08: RBC 2.64 Mil/cmm (3.80-5.20) L 09/01/17 08:31 Hgb 8.2 gm/dL (12-16) L 09/01/17 08:31 Hct 24.6 % (41.0-60) L 09/01/17 08:31 MCV 93.1 fl (81-100) 09/01/17 08: MCH 31.0 pg (27.0-31.0) 09/01/17 08: MCHC Differential 33.3 pg (28.0-36.0) 09/01/17 08: RDW 13.2 % (11.5-20.0) 09/01/17 08: Plt Count 540 Th/cmm (150-400) H 09/01/17 08:31 MPV 8.7 fl 09/01/17 08:31 Neutrophils % 64.9 % (40.0-80.0) 09/01/17 08: Lymphocytes % 25.7 % (20.0-50.0) 09/01/17 08: Monocytes % 5.3 % (2.0-10.0) 09/01/17 08: Eosinophils % 3.7 % (0.0-5.0) 09/01/17 08: Basophils % 0.4 % (0.0-2.0) 09/01/17 08:31 Sodium 138 mEq/L (136-145) 09/01/17 08:31 Potassium 3.4 mEq/L (3.5-5.1) L 09/01/17 08: Chloride 108 mEq/L (98-107) H 09/01/17 08:31 Carbon Dioxide 24.0 mEq/L (21.0-31.0) 09/01/17 08: Anion Gap 9.4 (7.0-16.0) 09/01/17 08:31 BUN 10 mg/dL (7-25) 09/01/17 08:31 Creatinine 0.8 mg/dL (0.6-1.2) 09/01/17 08:31 Est GFR ( Amer) TNP 09/01/17 08:31 Est GFR (Non-Af Amer) TNP 09/01/17 08:31 BUN/Creatinine Ratio 12.5 09/01/17 08:31 Glucose 120 mg/dL (70-105) H 09/01/17 08:31 Calcium 9.5 mg/dL (8.6-10.3) 09/01/17 08:31 Magnesium 1.7 mg/dL (1.9-2.7) L 09/01/17 08:31 Total Bilirubin 0.4 mg/dL (0.3-1.0) 09/01/17 08:31 AST 12 U/L (13-39) L 09/01/17 08:31 ALT 13 U/L (7-52) 09/01/17 08:31 Alkaline Phosphatase 87 U/L (34-104) 09/01/17 08:31 B-Natriuretic Peptide 424.0 pg/mL (5.0-100.0) H 09/01/17 08:31 Total Protein 6.2 gm/dL (6.0-8.3) 09/01/17 08:31 Albumin 2.9 gm/dL (3.7-5.3) L 09/01/17 08:31 Globulin 3.3 gm/dL 09/01/17 08:31 Albumin/Globulin Ratio 0.9 (1.0-1.8) L 09/01/17 08:31 TSH 1.17 uIU/ml (0.34-5.60) 09/01/17 08:31 Urine Source CLEAN C 08/30/17 16:58 Urine Color YELLOW 08/30/17 16:58 Urine Clarity CLEAR (CLEAR) 08/30/17 16:58 Urine pH 6.0 (4.6 - 8.0) 08/30/17 16:58 Ur Specific [place] 1.015 (1.005-1.030) 08/30/17 16:58 Urine Protein NEGATIVE mg/dL (NEGATIVE) 08/30/17 16:58 Urine Glucose (UA) NEGATIVE mg/dL (NEGATIVE) 08/30/17 16:58 Urine Ketones NEGATIVE mg/dL (NEGATIVE) 08/30/17 16:58 Urine Blood NEGATIVE (NEGATIVE) 08/30/17 16:58 Urine Nitrate NEGATIVE (NEGATIVE) 08/30/17 16:58 Urine Bilirubin NEGATIVE (NEGATIVE) 08/30/17 16:58 Urine Urobilinogen 0.2 E.U./dL (0.2 - 1.0) 08/30/17 16:58 Ur Leukocyte Esterase NEGATIVE (NEGATIVE) 08/30/17 16:58 Urine RBC NONE SEEN /hpf (0-5) 08/30/17 16:58 Urine WBC NONE SEEN /hpf (0-5) 08/30/17 16:58 Ur Epithelial Cells NONE SEEN /lpf (FEW) 08/30/17 16:58 Urine Bacteria NONE SEEN /hpf (NONE SEEN) 08/30/17 16:58 - Physical Exam Vitals and I&O: Vital Signs Temp 97.1 F 09/02/17 00:00 Pulse 78 09/02/17 12:50 Resp 18 09/02/17 12:50 BP 129/62 09/02/17 09:44 Pulse Ox 96 09/02/17 12:50 Intake & Output 09/01/17 09/02/17 09/02/17 18:59 06:59 18:59 Intake Total 50 1000 Balance 50 1000 Weight (lbs) 135 lb 135 lb Intake: Intake, IV Amount 50 1000 Cefepime 1 gm In Sodium 50 Chloride 0.9% 50 ml @ 100 mls/hr IV DAILY [facility] Rx#: [id number] D5-0.45NS 1,000 ml @ 80 1000 mls/hr IV .[id number] [facility] Rx #:[id number] Active Medications: Current Medications Acetaminophen (Tylenol) 650 mg PO Q4H PRN PRN Reason: Pain Or Fever above 101 Stop: 10/28/17 23:07 Al Hydrox/Mg Hydrox/Simethicone (Maalox) 30 ml PO Q6H PRN PRN Reason: Dyspepsia Stop: 10/28/17 23:07 Albuterol Sulfate (Albuterol 2.5mg/3ml Neb Ud) 2.5 mg HHN QIDRT [facility] Stop: 10/29/17 06:59 Last Admin: 09/02/17 12:50 Dose: 2.5 mg Aspirin (Aspirin Chewable) 81 mg PO DAILY [facility] Stop: 10/29/17 08:59 Last Admin: 09/02/17 09:45 Dose: 81 mg Buspirone HCl (Buspar) 5 mg PO BID [facility] PRN Reason: Protocol Stop: 10/29/17 17:53 Last Admin: 09/02/17 09:46 Dose: 5 mg Calcium/Vitamin D (Oscal W/Vitamin D) 1 tab PO BID [facility] Stop: 10/29/17 08:59 Last Admin: 09/02/17 09:45 Dose: 1 tab Ferrous Sulfate (Iron) 325 mg PO BID [facility] Stop: 10/29/17 08:59 Last Admin: 09/02/17 09:43 Dose: 325 mg Guaifenesin (Robitussin) 200 mg PO Q4HR PRN PRN Reason: Cough or Congestion Stop: 10/28/17 23:07 Last Admin: 08/31/17 21:29 Dose: 200 mg Heparin Sodium (Porcine) (Heparin) 5,000 units SUBQ Q12HR [facility] Stop: 10/29/17 08:59 Last Admin: 09/02/17 09:45 Dose: 5,000 units Dextrose/Sodium Chloride (D5-0.45ns) 1,000 mls @ 80 mls/hr IV .[id number] [facility] Stop: 10/28/17 23:14 Last Admin: 09/02/17 09:42 Dose: 80 mls/hr Cefepime HCl 1 gm/ Sodium (Chloride) 50 mls @ 100 mls/hr IV DAILY [facility] Stop: 10/31/17 08:59 Last Admin: 09/02/17 09:45 Dose: 100 mls/hr Ipratropium [place] (Atrovent Neb 0.5mg/2.5ml) 0.5 mg IH QIDRT [facility] Stop: 10/29/17 06:59 Last Admin: 09/02/17 12:50 Dose: 0.5 mg Lactobacillus Rhamnosus (Culturelle 15b) 1 each PO DAILY [facility] Stop: 10/30/17 08:59 Last Admin: 09/02/17 09:44 Dose: 1 each Lisinopril (Zestril) 20 mg PO BID [facility] Stop: 10/29/17 08:59 Last Admin: 09/02/17 09:44 Dose: 20 mg Lorazepam (Ativan) 0.5 mg PO Q6HR PRN; Protocol PRN Reason: Anxiety Stop: 10/28/17 23:05 Last Admin: 08/31/17 18:02 Dose: 0.5 mg Lorazepam (Ativan) 1 mg IV Q4H PRN; Protocol PRN Reason: Seizure Stop: 10/28/17 23:07 Last Admin: 09/02/17 04:16 Dose: 1 mg Miscellaneous (Probiotic Screen) 1 ea PRN PRN PRN Reason: PROTOCOL Stop: 10/29/17 09:14 Miscellaneous (Vte Chemical Prophylaxis Screen/ Admission) 1 ea PRN PRN PRN Reason: PROTOCOL Stop: 10/29/17 12:44 Miscellaneous (Clinical Monitoring) 1 ea PRN PRN PRN Reason: CEFEPIME RENAL DOSE Stop: 10/30/17 10:15 Olanzapine (Zyprexa) 5 mg PO HS [facility] PRN Reason: Protocol Stop: 10/29/17 20:59 Last Admin: 09/01/17 20:50 Dose: 5 mg Ondansetron HCl (Zofran) 4 mg IV Q8H PRN PRN Reason: Nausea / Vomiting Stop: 10/28/17 23:07 Polyethylene Glycol (Miralax) 17 gm PO DAILY [facility] Stop: 10/29/17 08:59 Last Admin: 09/02/17 09:43 Dose: 17 gm General: weak HEENT: NC/AT, PERRLA Neck: Supple Lungs: CTAB Cardiovascular: RRR, Normal S1, Normal S2 Abdomen: soft, non-tender, non-distended, positive bowel sound Extremities: excoriation Neurological: alert - Procedures Procedures: Procedures Procedure Code Date INTRODUCTION OF SERUM/TOX/VACCINE INTO MUSCLE, PERC APPROACH [id number] 12/28/16 Internal Medicine Assmt/Plan - Assessment Assessment: pna leukocytosis acute renal insufficiency anemia dementia - Plan Plan: continue ivabx bronchodilators supplemental oxygen ivf for hydration continue current orders
--- NOTE | 2017-09-02 15:28 | Internal Medicine Prog Note ---
Internal Medicine Subjective - Subjective Service Date: 09/02/17 (dc summary [id number]) Patient is:: awake, verbal, confused Per staff patient has:: tolerating meds Internal Medicine Objective - Results Result Diagrams: 09/01/17 08:31 09/01/17 08:31 Recent Labs: Laboratory Last Values WBC 6.0 Th/cmm (4.8-10.8) D 09/01/17 08:31 RBC 2.64 Mil/cmm (3.80-5.20) L 09/01/17 08:31 Hgb 8.2 gm/dL (12-16) L 09/01/17 08:31 Hct 24.6 % (41.0-60) L 09/01/17 08:31 MCV 93.1 fl (81-100) 09/01/17 08:31 MCH 31.0 pg (27.0-31.0) 09/01/17 08: MCHC Differential 33.3 pg (28.0-36.0) 09/01/17 08: RDW 13.2 % (11.5-20.0) 09/01/17 08:31 Plt Count 540 Th/cmm (150-400) H 09/01/17 08:31 MPV 8.7 fl 09/01/17 08:31 Neutrophils % 64.9 % (40.0-80.0) 09/01/17 08:31 Lymphocytes % 25.7 % (20.0-50.0) 09/01/17 08: Monocytes % 5.3 % (2.0-10.0) 09/01/17 08: Eosinophils % 3.7 % (0.0-5.0) 09/01/17 08:31 Basophils % 0.4 % (0.0-2.0) 09/01/17 08:31 Sodium 138 mEq/L (136-145) 09/01/17 08:31 Potassium 3.4 mEq/L (3.5-5.1) L 09/01/17 08:31 Chloride 108 mEq/L (98-107) H 09/01/17 08:31 Carbon Dioxide 24.0 mEq/L (21.0-31.0) 09/01/17 08:31 Anion Gap 9.4 (7.0-16.0) 09/01/17 08:31 BUN 10 mg/dL (7-25) 09/01/17 08:31 Creatinine 0.8 mg/dL (0.6-1.2) 09/01/17 08:31 Est GFR ( Amer) TNP 09/01/17 08:31 Est GFR (Non-Af Amer) TNP 09/01/17 08:31 BUN/Creatinine Ratio 12.5 09/01/17 08:31 Glucose 120 mg/dL (70-105) H 09/01/17 08:31 Calcium 9.5 mg/dL (8.6-10.3) 09/01/17 08:31 Magnesium 1.7 mg/dL (1.9-2.7) L 09/01/17 08:31 Total Bilirubin 0.4 mg/dL (0.3-1.0) 09/01/17 08:31 AST 12 U/L (13-39) L 09/01/17 08:31 ALT 13 U/L (7-52) 09/01/17 08:31 Alkaline Phosphatase 87 U/L (34-104) 09/01/17 08:31 B-Natriuretic Peptide 424.0 pg/mL (5.0-100.0) H 09/01/17 08:31 Total Protein 6.2 gm/dL (6.0-8.3) 09/01/17 08:31 Albumin 2.9 gm/dL (3.7-5.3) L 09/01/17 08:31 Globulin 3.3 gm/dL 09/01/17 08:31 Albumin/Globulin Ratio 0.9 (1.0-1.8) L 09/01/17 08:31 TSH 1.17 uIU/ml (0.34-5.60) 09/01/17 08:31 Urine Source CLEAN C 08/30/17 16:58 Urine Color YELLOW 08/30/17 16:58 Urine Clarity CLEAR (CLEAR) 08/30/17 16:58 Urine pH 6.0 (4.6 - 8.0) 08/30/17 16:58 Ur Specific [place] 1.015 (1.005-1.030) 08/30/17 16:58 Urine Protein NEGATIVE mg/dL (NEGATIVE) 08/30/17 16:58 Urine Glucose (UA) NEGATIVE mg/dL (NEGATIVE) 08/30/17 16:58 Urine Ketones NEGATIVE mg/dL (NEGATIVE) 08/30/17 16:58 Urine Blood NEGATIVE (NEGATIVE) 08/30/17 16:58 Urine Nitrate NEGATIVE (NEGATIVE) 08/30/17 16:58 Urine Bilirubin NEGATIVE (NEGATIVE) 08/30/17 16:58 Urine Urobilinogen 0.2 E.U./dL (0.2 - 1.0) 08/30/17 16:58 Ur Leukocyte Esterase NEGATIVE (NEGATIVE) 08/30/17 16:58 Urine RBC NONE SEEN /hpf (0-5) 08/30/17 16:58 Urine WBC NONE SEEN /hpf (0-5) 08/30/17 16:58 Ur Epithelial Cells NONE SEEN /lpf (FEW) 08/30/17 16:58 Urine Bacteria NONE SEEN /hpf (NONE SEEN) 08/30/17 16:58 - Physical Exam Vitals and I&O: Vital Signs Temp 97.1 F 09/02/17 00:00 Pulse 78 09/02/17 12:50 Resp 18 09/02/17 12:50 BP 129/62 09/02/17 09:44 Pulse Ox 96 09/02/17 12:50 Intake & Output 09/01/17 09/02/17 09/02/17 18:59 06:59 18:59 Intake Total 50 1000 Balance 50 1000 Weight (lbs) 135 lb 135 lb Intake: Intake, IV Amount 50 1000 Cefepime 1 gm In Sodium 50 Chloride 0.9% 50 ml @ 100 mls/hr IV DAILY [facility] Rx#: [id number] D5-0.45NS 1,000 ml @ 80 1000 mls/hr IV .[id number] [facility] Rx #:[id number] Active Medications: Current Medications Acetaminophen (Tylenol) 650 mg PO Q4H PRN PRN Reason: Pain Or Fever above 101 Stop: 10/28/17 23:07 Al Hydrox/Mg Hydrox/Simethicone (Maalox) 30 ml PO Q6H PRN PRN Reason: Dyspepsia Stop: 10/28/17 23:07 Albuterol Sulfate (Albuterol 2.5mg/3ml Neb Ud) 2.5 mg HHN QIDRT [facility] Stop: 10/29/17 06:59 Last Admin: 02/09/18 12:50 Dose: 2.5 mg Aspirin (Aspirin Chewable) 81 mg PO DAILY [facility] Stop: 10/29/17 08:59 Last Admin: 09/02/17 09:45 Dose: 81 mg Buspirone HCl (Buspar) 5 mg PO BID [facility] PRN Reason: Protocol Stop: 10/29/17 17:53 Last Admin: 09/02/17 09:46 Dose: 5 mg Calcium/Vitamin D (Oscal W/Vitamin D) 1 tab PO BID [facility] Stop: 10/29/17 08:59 Last Admin: 09/02/17 09:45 Dose: 1 tab Ferrous Sulfate (Iron) 325 mg PO BID [facility] Stop: 10/29/17 08:59 Last Admin: 09/02/17 09:43 Dose: 325 mg Guaifenesin (Robitussin) 200 mg PO Q4HR PRN PRN Reason: Cough or Congestion Stop: 10/28/17 23:07 Last Admin: 08/31/17 21:29 Dose: 200 mg Heparin Sodium (Porcine) (Heparin) 5,000 units SUBQ Q12HR [facility] Stop: 10/29/17 08:59 Last Admin: 09/02/17 09:45 Dose: 5,000 units Dextrose/Sodium Chloride (D5-0.45ns) 1,000 mls @ 80 mls/hr IV .[id number] [facility] Stop: 10/28/17 23:14 Last Admin: 09/02/17 09:42 Dose: 80 mls/hr Cefepime HCl 1 gm/ Sodium (Chloride) 50 mls @ 100 mls/hr IV DAILY [facility] Stop: 10/31/17 08:59 Last Admin: 09/02/17 09:45 Dose: 100 mls/hr Ipratropium [place] (Atrovent Neb 0.5mg/2.5ml) 0.5 mg IH QIDRT [facility] Stop: 10/29/17 06:59 Last Admin: 09/02/17 12:50 Dose: 0.5 mg Lactobacillus Rhamnosus (Culturelle 15b) 1 each PO DAILY [facility] Stop: 10/30/17 08:59 Last Admin: 09/02/17 09:44 Dose: 1 each Lisinopril (Zestril) 20 mg PO BID [facility] Stop: 10/29/17 08:59 Last Admin: 09/02/17 09:44 Dose: 20 mg Lorazepam (Ativan) 0.5 mg PO Q6HR PRN; Protocol PRN Reason: Anxiety Stop: 10/28/17 23:05 Last Admin: 08/31/17 18:02 Dose: 0.5 mg Lorazepam (Ativan) 1 mg IV Q4H PRN; Protocol PRN Reason: Seizure Stop: 10/28/17 23:07 Last Admin: 09/02/17 04:16 Dose: 1 mg Miscellaneous (Probiotic Screen) 1 ea PRN PRN PRN Reason: PROTOCOL Stop: 10/29/17 09:14 Miscellaneous (Vte Chemical Prophylaxis Screen/ Admission) 1 ea PRN PRN PRN Reason: PROTOCOL Stop: 10/29/17 12:44 Miscellaneous (Clinical Monitoring) 1 ea PRN PRN PRN Reason: CEFEPIME RENAL DOSE Stop: 10/30/17 10:15 Olanzapine (Zyprexa) 5 mg PO HS HANNA PRN Reason: Protocol Stop: 10/29/17 20:59 Last Admin: 09/01/17 20:50 Dose: 5 mg Ondansetron HCl (Zofran) 4 mg IV Q8H PRN PRN Reason: Nausea / Vomiting Stop: 10/28/17 23:07 Polyethylene Glycol (Miralax) 17 gm PO DAILY HANNA Stop: 10/29/17 08:59 Last Admin: 09/02/17 09:43 Dose: 17 gm General: weak HEENT: NC/AT, PERRLA Neck: Supple Lungs: CTAB Cardiovascular: RRR, Normal S1, Normal S2 Abdomen: soft, non-tender, non-distended, positive bowel sound Extremities: excoriation Neurological: alert - Procedures Procedures: Procedures Procedure Code Date INTRODUCTION OF SERUM/TOX/VACCINE INTO MUSCLE, PERC APPROACH [id number] 12/28/16 Internal Medicine Assmt/Plan - Assessment Assessment: pna leukocytosis acute renal insufficiency anemia dementia - Plan Plan: continue ivabx bronchodilators supplemental oxygen ivf for hydration continue current orders
--- NOTE | 2017-09-03 12:19 | Discharge Summary ---
DATE OF DISCHARGE: 09/02/2017 FINAL DIAGNOSES: 1. Pneumonia, which is improved. 2. Leukocytosis, improved. 3. Acute renal insufficiency. 4. Anemia. 5. Dementia. HISTORY OF PRESENT ILLNESS: An 82-year-old female, resident of [facility] who is well known to me. I was called on this patient due to a chest x-ray showing right lower lobe infiltrate as well as with WBCs of 11,000. PHYSICAL EXAMINATION: GENERAL: The patient is well developed, well nourished, in no acute distress. VITAL SIGNS: Stable. HEENT: Head is normocephalic and atraumatic. NECK: Supple. No mass. LUNGS: Clear bilaterally. HEART: Regular rhythm. ABDOMEN: Soft, nontender. HOSPITAL COURSE: During the hospital stay, [facility] The patient had a chest x-ray done; impression was atelectasis, infiltrate cannot be excluded, COPD changes. The patient was kept on IV fluids for hydration. The patient was also kept on empiric IV antibiotics for hydration. The patient had a CT head and CT cervical spine; was all negative. The patient also had a repeat chest x-ray done on 09/01/2017 and the impression is developing hazy mid to right lower lung zone infiltrate and small right effusion. The patient did not have any fevers during the hospital stay. For this reason, the patient is stable for discharge. CONDITION UPON DISCHARGE: Fair. DISPOSITION: [facility]. JOB# [id number]
== END 2017-09-02 18:00 | disposition home or self-care (01) | DRG 193 ==
LOC: ER 21:55 → TELE 23:04 → MSI 08-30 01:32
PROVIDERS: ADMIT Internal Medicine; ATTEND Internal Medicine
DX: J18.9 Pneumonia, unspecified organism (principal); E43 Unspecified severe protein-calorie malnutrition; E86.0 Dehydration; D64.9 Anemia, unspecified; F03.90 Unspecified dementia, unspecified severity, without behavioral disturbance, psychotic disturbance, mood disturbance, and anxiety; J98.11 Atelectasis; J90 Pleural effusion, not elsewhere classified; N28.9 Disorder of kidney and ureter, unspecified; E78.5 Hyperlipidemia, unspecified; F29 Unspecified psychosis not due to a substance or known physiological condition; Z88.8 Allergy status to other drugs, medicaments and biological substances; Z91.041 Radiographic dye allergy status; Z68.23 Body mass index [BMI] 23.0-23.9, adult
CPT/HCPCS: 36415-UA; 70450-TC; 71045-TC; 72125-TC; 80048-TC; 80053-TC; 81001-TC; 83735-TC; 83880-TC; 84443-TC; 85025-TC; 87070-90; 87086-90; 90779; 94760; J0692; J1644; J2060; J2543; J3475; J7030; J7051; J7613; Z7610

== ENCOUNTER 2017-10-20 17:56 | Inpatient (IN) | payer MEDICARE, MEDICAID ==
--- NOTE | 2017-10-20 18:18 | ED Physician Chart ---
ED Chief Complaint/HPI - Patient Information Date Seen:: 10/20/17 Time Seen:: 18:00 Chief Complaint:: hypoxia History of Present Illness:: At her retirement facility patient's pulse ox went down to 83%. Paramedics were called. Patient was placed on high flow oxygen by mask and in the respiratory distress improved. Paramedics EKG showed a normal sinus rhythm with a rate of 71, borderline left axis deviation and no ST-T changes. Allergies:: Allergies Allergy/AdvReac Type Severity Reaction Status Date / Time iodine Allergy Verified 08/30/17 13:01 meperidine Allergy Verified 08/30/17 11:17 niacin Allergy Verified 08/30/17 13:03 Historian:: Other (paramedics) Review:: Nurse's Note Reviewed ED Review of Systems - Review of Systems General/Constitutional: No fever Skin: No skin lesions Head: Headache Eyes: Acuity change ENT: No earache Neck: No neck pain, No swelling Cardio Vascular: No chest pain Pulmonary: SOB GI: No nausea, No vomiting, No diarrhea G/U: No dysuria Musculoskeletal: No bone or joint pain Endocrine: No polyuria Hematopoietic: No bruising Allergic/Immuno: No urticaria Neurological: No syncope ED Past Medical History - Past Medical History Past Medical History: HTN, Dementia, Other (status post pneumonia; hypercholesterolemia; dementia; anxiety; major depression; psychosis) Family History: Other (unavailable) Social History: Care Facility Surgical History: other (unavailable) Psychiatricy History: Dementia Medication: Reviewed Family Medical History - Family Member Mother History Unknown: Yes Ethnicity: ED Physical Exam - Physical Examination General/Constitutional: Well-developed, well-nourished, Alert, No distress Head: Atraumatic Eyes: Lids, conjuctiva normal, PERRL Skin: Nl inspection, No rash ENMT: External ears, nose nl, TM canals nl, Nasal exam nl, Lips, teeth, gums nl Neck: No nuchal rigidity Cardio Vascular: RRR, No murmur, gallop, rubs GI: No tenderness/rebounding/guarding : No CVA tenderness Extremities: Normal digits & nails Neuro/Psych: No focal deficits Misc: Normal back ED Labs/Radiology/EKG Results - Lab Results Results: Laboratory Results - last 24 hr 10/20/17 10/20/17 18:28 18:28 WBC 5.8 RBC 3.40 L Hgb 10.6 L Hct 31.5 L MCV 92.6 MCH 31.2 H MCHC Differential 33.7 RDW 13.7 Plt Count 227 MPV 9.5 Neutrophils % 45.2 Lymphocytes % 42.4 Monocytes % 8.1 Eosinophils % 3.6 Basophils % 0.7 Sodium 135 L Potassium 4.2 Chloride 107 Carbon Dioxide 21.6 Anion Gap 10.6 BUN 32 H Creatinine 1.2 Est GFR ( Amer) TNP Est GFR (Non-Af Amer) TNP BUN/Creatinine Ratio 26.7 Glucose 113 H Calcium 10.7 H - Radiology Results Results: Chest x-ray negative - EKG Interpretations Rate & Rhythm: normal sinus rhythm with a rate of 68 [place]: normal axis Comments:: Left ventricular hypertrophy ED Septic Shock - . Is Septic Shock (SBP<90, OR Lactate>4 mmol\L) present?: No ED Reassessment (Disposition) - Reassessment Reassessment:: at 2006 patient's pulse ox was 97% and she was noted to be breathing normally. Reassessment Condition:: Improved - Diagnosis Diagnosis:: Hypoxemia; dementia; COPD exacerbation - Patient Disposition Admitted to:: Med/Surg Spoke to:: German Patel Admitting Medical Physician:: German Patel Condition at Disposition:: Stable, Improved
[2017-10-20 18:36] LABS: % BASOPHILS 0.7 % (0.0-2.0); % EOSINOPHILS 3.6 % (0.0-5.0); % LYMPHOCYTES 42.4 % (20.0-50.0); % MONOCYTES 8.1 % (2.0-10.0); % NEUTROPHILS 45.2 % (40.0-80.0); EOSINOPHILE ABSOLUTE 0.2 Th/cmm (0.1-0.4); HEMATOCRIT 31.5 % (41.0-60); HEMOGLOBIN 10.6 gm/dL (12-16); LYMPHOCYTE ABSOLUTE 2.5 Th/cmm (1.5-3.0); MEAN CELL VOLUME 92.6 fl (81-100); MEAN CORPUSCULAR HEMOGLOBIN 31.2 pg (27.0-31.0); MEAN CORPUSCULAR HGB CONC 33.7 pg (28.0-36.0); MEAN PLATELET VOLUME 9.5 fl; MONOCYTE ABSOLUTE 0.5 Th/cmm (0.3-1.0); NEUTROPHILE ABSOLUTE 2.6 Th/cmm (1.8-8.0); PLATELET COUNT 227 Th/cmm (150-400); RED CELL DISTRIBUTION WIDTH 13.7 % (11.5-20.0); WHITE BLOOD COUNT 5.8 Th/cmm (4.8-10.8)
[2017-10-20 19:03] LABS: ANION GAP 10.6 (7.0-16.0); BUN - UREA NITROGEN 32 mg/dL (7-25); CALCIUM SERUM 10.7 mg/dL (8.6-10.3); CARBON DIOXIDE 21.6 mEq/L (21.0-31.0); CHLORIDE 107 mEq/L (98-107); CREATININE - SERUM 1.2 mg/dL (0.6-1.2); GLUCOSE 113 mg/dL (70-105); POTASSIUM SERUM 4.2 mEq/L (3.5-5.1); SODIUM SERUM 135 mEq/L (136-145)
[2017-10-20] MEDS ORDERED: Maalox 30 mL Cup PO PRN (20:35)
[2017-10-20] MEDS ORDERED: cefTRIAXone 1 GM in Sodium Chloride 0.9% 50 ML IV SCH (21:00)
[2017-10-20] MEDS: D5-0.45NS 1,000 ML IV SCH (23:59)
[2017-10-21] MEDS: Albuterol Nebulizer 2.5mg/3mL HHN SCH ×4 (07:16→19:20)
[2017-10-21] MEDS: Ipratropium Neb 0.5 mg/2.5 mL UD IH SCH ×4 (07:17→19:21)
[2017-10-21] MEDS ORDERED: LACTOSE REDUCED FOOD PO SCH (09:00)
--- NOTE | 2017-10-21 09:06 | Diagnostic Imaging Report ---
CHEST X-RAY: AP view INDICATION: Hypoxia, shortness of breath COMPARISON: 09/01/2017 FINDINGS: There is no focal consolidation or pleural effusions The heart is mildly prominent.. Atherosclerosis is noted. Degenerative changes of the spine are noted. IMPRESSION: No focal consolidation or evidence of neela CHF.
[2017-10-21] MEDS: Ferrous Sulfate 325 MG TAB PO SCH ×2 (09:08→16:35)
[2017-10-21] MEDS: Aspirin 81mg Chewable Tab PO SCH (09:09)
[2017-10-21] MEDS: POLYETHYLENE GLYCOL 3350 17 GM PACK PO SCH (09:09)
[2017-10-21] MEDS: Calcium Carb/Vit D 500 mg/200 U Tab PO SCH ×2 (09:30→16:36)
--- NOTE | 2017-10-21 13:41 | Internal Medicine Prog Note ---
Internal Medicine Subjective - Subjective Service Date: 10/21/17 ([facility] dictated [id number]) Internal Medicine Objective - Results Result Diagrams: 10/20/17 18:28 10/20/17 18: Recent Labs: Laboratory Last Values WBC 5.8 Th/cmm (4.8-10.8) 10/20/17 18: RBC 3.40 Mil/cmm (3.80-5.20) L 10/20/17 18: Hgb 10.6 gm/dL (12-16) L 10/20/17 18: Hct 31.5 % (41.0-60) L 10/20/17 18: MCV 92.6 fl (81-100) 10/20/17 18: MCH 31.2 pg (27.0-31.0) H 10/20/17 18: MCHC Differential 33.7 pg (28.0-36.0) 10/20/17 18: RDW 13.7 % (11.5-20.0) 10/20/17 18: Plt Count 227 Th/cmm (150-400) 10/20/17 18: MPV 9.5 fl 10/20/17 18: Neutrophils % 45.2 % (40.0-80.0) 10/20/17 18: Lymphocytes % 42.4 % (20.0-50.0) 10/20/17 18: Monocytes % 8.1 % (2.0-10.0) 10/20/17 18: Eosinophils % 3.6 % (0.0-5.0) 10/20/17 18: Basophils % 0.7 % (0.0-2.0) 10/20/17 18: Sodium 135 mEq/L (136-145) L 10/20/17 18: Potassium 4.2 mEq/L (3.5-5.1) 10/20/17 18: Chloride 107 mEq/L (98-107) 10/20/17 18: Carbon Dioxide 21.6 mEq/L (21.0-31.0) 10/20/17 18: Anion Gap 10.6 (7.0-16.0) 10/20/17 18: BUN 32 mg/dL (7-25) H 10/20/17 18:28 Creatinine 1.2 mg/dL (0.6-1.2) 10/20/17 18:28 Est GFR ( Amer) TNP 10/20/17 18:28 Est GFR (Non-Af Amer) TNP 10/20/17 18:28 BUN/Creatinine Ratio 26.7 10/20/17 18:28 Glucose 113 mg/dL (70-105) H 10/20/17 18:28 Calcium 10.7 mg/dL (8.6-10.3) H 10/20/17 18:28 Troponin I 0.01 ng/mL (0.01-0.05) 10/20/17 18:28 B-Natriuretic Peptide 52.9 pg/mL (5.0-100.0) 10/20/17 18:28 - Physical Exam Vitals and I&O: Vital Signs Temp 98.7 F 10/20/17 23:00 Pulse 77 10/21/17 10:30 Resp 16 10/21/17 10:30 BP 129/95 10/21/17 09:12 Pulse Ox 98 10/21/17 10:30 Active Medications: Current Medications Acetaminophen (Tylenol) 650 mg PO Q4H PRN PRN Reason: Pain Or Fever above 101 Stop: 12/19/17 20:34 Al Hydrox/Mg Hydrox/Simethicone (Maalox) 30 ml PO Q6H PRN PRN Reason: Dyspepsia Stop: 12/19/17 20:34 Albuterol Sulfate (Albuterol 2.5mg/3ml Neb Ud) 1.25 mg HHN QIDRT [facility] Stop: 12/20/17 06:59 Last Admin: 10/21/17 10:29 Dose: 1.25 mg Aspirin (Aspirin Chewable) 81 mg PO DAILY [facility] Stop: 12/20/17 08:59 Last Admin: 10/21/17 09:09 Dose: 81 mg Bupropion HCl (Wellbutrin Sr) 150 mg PO DAILY [facility] PRN Reason: Protocol Stop: 12/20/17 08:59 Buspirone HCl (Buspar) 2.5 mg PO BID [facility] PRN Reason: Protocol Stop: 12/20/17 08:59 Calcium/Vitamin D (Oscal W/Vitamin D) 1 tab PO BID [facility] Stop: 12/20/17 08:59 Last Admin: 10/21/17 09:30 Dose: 1 tab Ferrous Sulfate (Iron) 325 mg PO BID [facility] Stop: 12/20/17 08:59 Last Admin: 10/21/17 09:08 Dose: 325 mg Dextrose/Sodium Chloride (D5-0.45ns) 1,000 mls @ 80 mls/hr IV .[id number] [facility] Stop: 12/19/17 20:44 Last Admin: 10/20/17 23:59 Dose: 80 mls/hr Ceftriaxone Sodium 1 gm/ (Dextrose) 50 mls @ 100 mls/hr IV Q24HR [facility] Stop: 12/20/17 20:59 Ipratropium [place] (Atrovent Neb 0.5mg/2.5ml) 0.5 mg IH QIDRT [facility] Stop: 12/20/17 06:59 Last Admin: 10/21/17 10:29 Dose: 0.5 mg Lisinopril (Zestril) 20 mg PO BID [facility] Stop: 12/20/17 08:59 Last Admin: 10/21/17 09:12 Dose: 20 mg Lorazepam (Ativan) 0.5 mg PO Q6HR PRN; Protocol PRN Reason: Anxiety Stop: 12/19/17 20:32 Methylprednisolone Sodium Succinate (Solu-Medrol) 80 mg IVP Q8HR [facility] Stop: 12/20/17 12:59 Miscellaneous (Lactose-Reduced Food [Ensure Plus]) 240 ml PO BID [facility] Stop: 12/20/17 08:59 Olanzapine (Zyprexa) 5 mg PO HS [facility] PRN Reason: Protocol Stop: 12/19/17 20:59 Ondansetron HCl (Zofran) 4 mg IV Q8H PRN PRN Reason: Nausea / Vomiting Stop: 12/19/17 20:34 Polyethylene Glycol (Miralax) 17 gm PO DAILY [facility] Stop: 12/20/17 08:59 Last Admin: 10/21/17 09:09 Dose: 17 gm - Procedures Procedures: Procedures Procedure Code Date INTRODUCTION OF SERUM/TOX/VACCINE INTO MUSCLE, PERC APPROACH [id number] 12/28/16 Internal Medicine Assmt/Plan - Assessment Assessment: Acute COPD exacerbation HTN Dementia Acute Dehydration Hypercholesteremia dementia anxeity depression psychosis
--- NOTE | 2017-10-21 14:42 | Diagnostic Imaging Report ---
KUB single view HISTORY: Abdominal pain. COMPARISON: None FINDINGS: There is severe distal fecal impaction copious stool throughout the colon. Generalized gas-filled loops of bowel are noted. Cholecystectomy clips are noted. Degenerative changes of the spine are noted. Atherosclerosis is noted. IMPRESSION: Severe distal fecal impaction with copious stool throughout the colon also noted. Evidence of prior cholecystectomy.
[2017-10-21] MEDS: D5-0.45NS 1,000 ML IV SCH (14:58)
[2017-10-21] MEDS ORDERED: VTE Chemical Prophylaxis Screen/Admission MC PRN (15:36)
[2017-10-21] MEDS: methylPREDNISolone SS 40 mg Vial IVP SCH ×2 (15:43→20:46)
[2017-10-21] MEDS ORDERED: Fleet Enema 135 mL RC ONE (17:01)
--- NOTE | 2017-10-21 18:15 | History & Physical ---
ADMIT DATE: 10/21/[address] German Patel. CHIEF COMPLAINT: Hypoxia. HISTORY OF PRESENT ILLNESS: This is an 82-year-old female is well known to me from [facility]. I was called on this patient yesterday afternoon due to patient's oxygen saturation dropping to about 83-85% despite of having oxygen at 100% at the correction. The patient's oxygen level was still noted to be below. For further management, the patient is now admitted here to the med/surg unit. PAST MEDICAL HISTORY: Hypertension, dementia, pneumonia, hypercholesterolemia, dementia, anxiety, major depression, psychosis. FAMILY HISTORY: Noncontributory. SOCIAL HISTORY: The patient is a correction resident, requiring 24-hour nursing care. PSYCHIATRIC HISTORY: Dementia. MEDICATIONS: Please see medication reconciliation. REVIEW OF SYSTEMS: Unable to obtain due to patient's mental status. The patient is confused. PHYSICAL EXAMINATION: GENERAL: Elderly female, well developed, well nourished, no apparent distress. VITAL SIGNS: Temperature 98.7, heart rate 70, blood pressure 129/57, respiration 18, O2 97%. HEENT: Head, normocephalic, atraumatic. NECK: Supple. No mass. LUNGS: Few rhonchi. HEART: Regular rate and rhythm. ABDOMEN: Mildly distended. LABORATORY DATA: WBC 5.8, H and H 10.6 and 31.5, platelet of 227. Sodium 135, potassium 4.2, chloride 107, BUN 32, creatinine 1.2. The patient had a chest x-ray done and the impression is no focal consolidation or evidence of neela CHF. ASSESSMENT: Acute chronic obstructive pulmonary disease exacerbation, hypertension, dementia, hypercholesterolemia, dementia, anxiety, major depression, psychosis. PLAN: The patient to be admitted to the med/surg unit. We will get remote mortgage underwriter on the case. Keep patient on empiric IV antibiotics of Rocephin 1 gram IV q.24 h. We will give the patient some supplemental oxygen and inhalation treatments. We will continue to monitor this patient. JOB# [id number]
--- NOTE | 2017-10-21 19:12 | Consultation ---
DATE OF CONSULTATION: 10/21/2017 REFERRING PHYSICIAN: Dr. Patel. Thank you very much for this consultation. HISTORY OF PRESENT ILLNESS: This is an 82-year-old female, long-term resident, presents with hypoxemia, shortness of breath, was evaluated. Oxygen supplementation was done. The patient has a history of COPD, was diagnosed with COPD exacerbation, admitted for treatment and management. The patient has underlying history of dementia as well. SOCIAL HISTORY: senior care resident, not sure about her smoking history at this time. REVIEW OF SYSTEMS: Unable to obtain because of the patient's condition. PHYSICAL EXAMINATION: GENERAL: The patient opens her eyes, is not communicative. VITAL SIGNS: Temperature at 98.7, pulse 70, respirations 16, blood pressure is 129/55, saturation 96%. HEENT: Atraumatic, normocephalic. Pupils react to light and accommodation. Ears, nose and throat are normal. NECK: Supple. No JVD. CHEST: There is decreased breath sounds bilaterally. No wheezing or crackles. HEART: Regular. ABDOMEN: Soft. EXTREMITIES: No edema. LABORATORY DATA: WBC is 5.8, hemoglobin 10.6, hematocrit 31.5, platelets 227. Sodium is 135, potassium 4.2, BUN is 32, creatinine 1.2. Chest x-ray showed no acute infiltrate. IMPRESSION: This is an 82-year-old female with: 1. Possibly chronic obstructive pulmonary disease exacerbation. 2. Acute bronchitis. 3. Rule out any thromboembolic disease less likely. PLAN: 1. Nebulizer treatment. 2. Antibiotics. 3. V/Q scan. I will follow the patient with you. Thank you very much for this consultation. JOB# [id number] [place]
[2017-10-22] MEDS: D5-0.45NS 1,000 ML IV SCH ×3 (05:03→23:46)
[2017-10-22] MEDS: methylPREDNISolone SS 40 mg Vial IVP SCH ×3 (05:04→20:47)
[2017-10-22 06:54] LABS: ALB/GLOB RATIO 1.1 (1.0-1.8); ALBUMIN 3.8 gm/dL (3.7-5.3); ALKALINE PHOSPHATASE 92 U/L (34-104); ANION GAP 13.7 (7.0-16.0); BILIRUBIN,TOTAL 0.2 mg/dL (0.3-1.0); BUN - UREA NITROGEN 28 mg/dL (7-25); CARBON DIOXIDE 22.2 mEq/L (21.0-31.0); CHLORIDE 104 mEq/L (98-107); CREATININE - SERUM 1.1 mg/dL (0.6-1.2); GLUCOSE 204 mg/dL (70-105); POTASSIUM SERUM 3.9 mEq/L (3.5-5.1); SGOT 14 U/L (13-39); SGPT/ALT 14 U/L (7-52); SODIUM SERUM 136 mEq/L (136-145); TOTAL PROTEIN,SERUM 7.2 gm/dL (6.0-8.3)
[2017-10-22 06:59] LABS: % BASOPHILS 0.1 % (0.0-2.0); % EOSINOPHILS 0.1 % (0.0-5.0); % LYMPHOCYTES 16.1 % (20.0-50.0); % MONOCYTES 0.5 % (2.0-10.0); % NEUTROPHILS 83.2 % (40.0-80.0); HEMATOCRIT 31.8 % (41.0-60); HEMOGLOBIN 10.5 gm/dL (12-16); MEAN CELL VOLUME 94.3 fl (81-100); MEAN CORPUSCULAR HEMOGLOBIN 31.1 pg (27.0-31.0); MEAN PLATELET VOLUME 10.7 fl; PLATELET COUNT 222 Th/cmm (150-400); RED BLOOD COUNT 3.38 Mil/cmm (3.80-5.20); RED CELL DISTRIBUTION WIDTH 13.5 % (11.5-20.0)
[2017-10-22] MEDS: Ipratropium Neb 0.5 mg/2.5 mL UD IH SCH ×4 (07:01→18:36)
[2017-10-22] MEDS: Albuterol Nebulizer 2.5mg/3mL HHN SCH ×4 (07:01→18:36)
--- NOTE | 2017-10-22 08:58 | Diagnostic Imaging Report ---
Nuclear medicine VQ scan HISTORY: Shortness of breath, rule out pulmonary embolus COMPARISON: Chest x-ray performed on 10/20/2017 Technique/procedure: For the ventilation portion of examination 33 mCi of technetium labeled DTPA was administered via aerosol and multiple scintigraphic images of the lungs were obtained. For the perfusion portion of examination 5.1 millicuries of technetium 99 labeled MAA was administered intravenously and multiple scintigraphic images of the lungs were obtained. Exam is limited due to only limited anterior URDU and VERNON images were able to be obtained. No perfusion defects. No V/Q mismatches identified. IMPRESSION: Very low probability VQ scan for pulmonary embolus.
[2017-10-22] MEDS: Ferrous Sulfate 325 MG TAB PO SCH ×2 (09:10→16:10)
[2017-10-22] MEDS: Aspirin 81mg Chewable Tab PO SCH (09:10)
[2017-10-22] MEDS: POLYETHYLENE GLYCOL 3350 17 GM PACK PO SCH (09:12)
[2017-10-22] MEDS: Calcium Carb/Vit D 500 mg/200 U Tab PO SCH ×2 (12:08→16:11)
--- NOTE | 2017-10-22 14:26 | Internal Medicine Prog Note ---
Internal Medicine Subjective - Subjective Patient seen and examined:: with staff, chart reviewed Patient is:: awake, verbal, interactive, confused, congested Per staff patient has:: no adverse event, poor appetite, confused, tolerating meds Internal Medicine Objective - Results Result Diagrams: 10/22/17 05:52 10/22/17 05:52 Recent Labs: Laboratory Last Values WBC 6.0 Th/cmm (4.8-10.8) 10/22/17 05:52 RBC 3.38 Mil/cmm (3.80-5.20) L 10/22/17 05:52 Hgb 10.5 gm/dL (12-16) L 10/22/17 05:52 Hct 31.8 % (41.0-60) L 10/22/17 05:52 MCV 94.3 fl (81-100) 10/22/17 05:52 MCH 31.1 pg (27.0-31.0) H 10/22/17 05:52 MCHC Differential 33.0 pg (28.0-36.0) 10/22/17 05:52 RDW 13.5 % (11.5-20.0) 10/22/17 05:52 Plt Count 222 Th/cmm (150-400) 10/22/17 05:52 MPV 10.7 fl 10/22/17 05:52 Neutrophils % 83.2 % (40.0-80.0) H 10/22/17 05:52 Lymphocytes % 16.1 % (20.0-50.0) L 10/22/17 05:52 Monocytes % 0.5 % (2.0-10.0) L 10/22/17 05:52 Eosinophils % 0.1 % (0.0-5.0) 10/22/17 05:52 Basophils % 0.1 % (0.0-2.0) 10/22/17 05:52 Sodium 136 mEq/L (136-145) 10/22/17 05:52 Potassium 3.9 mEq/L (3.5-5.1) 10/22/17 05:52 Chloride 104 mEq/L (98-107) 10/22/17 05:52 Carbon Dioxide 22.2 mEq/L (21.0-31.0) 10/22/17 05:52 Anion Gap 13.7 (7.0-16.0) 10/22/17 05:52 BUN 28 mg/dL (7-25) H 10/22/17 05:52 Creatinine 1.1 mg/dL (0.6-1.2) 10/22/17 05:52 Est GFR ( Amer) TNP 10/22/17 05:52 Est GFR (Non-Af Amer) TNP 10/22/17 05:52 BUN/Creatinine Ratio 25.5 10/22/17 05:52 Glucose 204 mg/dL (70-105) H 10/22/17 05:52 Calcium 10.0 mg/dL (8.6-10.3) 10/22/17 05:52 Total Bilirubin 0.2 mg/dL (0.3-1.0) L 10/22/17 05:52 AST 14 U/L (13-39) 10/22/17 05:52 ALT 14 U/L (7-52) 10/22/17 05:52 Alkaline Phosphatase 92 U/L (34-104) 10/22/17 05:52 Troponin I 0.01 ng/mL (0.01-0.05) 10/20/17 18:28 B-Natriuretic Peptide 163.0 pg/mL (5.0-100.0) H 10/22/17 06:00 Total Protein 7.2 gm/dL (6.0-8.3) 10/22/17 05:52 Albumin 3.8 gm/dL (3.7-5.3) 10/22/17 05:52 Globulin 3.4 gm/dL 10/22/17 05:52 Albumin/Globulin Ratio 1.1 (1.0-1.8) 10/22/17 05:52 TSH 0.36 uIU/ml (0.34-5.60) 10/22/17 05:52 - Physical Exam Vitals and I&O: Vital Signs Temp 97.9 F 10/22/17 12:01 Pulse 99 10/22/17 12:01 Resp 18 10/22/17 12:01 BP 95/39 10/22/17 12:01 Pulse Ox 95 10/22/17 12:01 Intake & Output 10/21/17 10/22/17 10/22/17 18:59 06:59 18:59 Intake Total 1300 1050 568 Balance 1300 1050 568 Weight (lbs) 63.503 kg Intake: Intake, IV Amount 1000 1050 568 D5-0.45NS 1,000 ml @ 80 1000 1000 568 mls/hr IV .[id number] [facility] Rx #:[id number] cefTRIAXone 1 gm In 50 Dextrose 5% 50 ml @ 100 mls/hr IV Q24HR [facility] Rx#: [id number] Oral 300 Other: # Voids 2 # Bowel Movements 0 Stool Characteristics Soft Weight Source Bedscale Active Medications: Current Medications Acetaminophen (Tylenol) 650 mg PO Q4H PRN PRN Reason: Pain Or Fever above 101 Stop: 12/19/17 20:34 Al Hydrox/Mg Hydrox/Simethicone (Maalox) 30 ml PO Q6H PRN PRN Reason: Dyspepsia Stop: 12/19/17 20:34 Albuterol Sulfate (Albuterol 2.5mg/3ml Neb Ud) 1.25 mg HHN QIDRT [facility] Stop: 12/20/17 06:59 Last Admin: 10/22/17 10:40 Dose: 1.25 mg Aspirin (Aspirin Chewable) 81 mg PO DAILY [facility] Stop: 12/20/17 08:59 Last Admin: 10/22/17 09:10 Dose: 81 mg Bupropion HCl (Wellbutrin Sr) 150 mg PO DAILY [facility] PRN Reason: Protocol Stop: 12/20/17 08:59 Last Admin: 10/22/17 09:10 Dose: 150 mg Buspirone HCl (Buspar) 2.5 mg PO BID [facility] PRN Reason: Protocol Stop: 12/20/17 08:59 Last Admin: 10/22/17 09:10 Dose: 2.5 mg Calcium/Vitamin D (Oscal W/Vitamin D) 1 tab PO BID [facility] Stop: 12/20/17 08:59 Last Admin: 10/22/17 12:08 Dose: 1 tab Ferrous Sulfate (Iron) 325 mg PO BID [facility] Stop: 12/20/17 08:59 Last Admin: 10/22/17 09:10 Dose: 325 mg Heparin Sodium (Porcine) (Heparin) 5,000 units SUBQ Q12H [facility] Stop: 12/20/17 20:59 Last Admin: 10/22/17 09:11 Dose: 5,000 units Dextrose/Sodium Chloride (D5-0.45ns) 1,000 mls @ 80 mls/hr IV .[id number] [facility] Stop: 12/19/17 20:44 Last Admin: 10/22/17 12:09 Dose: 80 mls/hr Ceftriaxone Sodium 1 gm/ (Dextrose) 50 mls @ 100 mls/hr IV Q24HR [facility] Stop: 12/20/17 20:59 Last Infusion: 10/22/17 02:24 Dose: Infused Ipratropium [place] (Atrovent Neb 0.5mg/2.5ml) 0.5 mg IH QIDRT [facility] Stop: 12/20/17 06:59 Last Admin: 10/22/17 10:40 Dose: 0.5 mg Lisinopril (Zestril) 20 mg PO BID [facility] Stop: 12/20/17 08:59 Last Admin: 10/22/17 09:11 Dose: 20 mg Lorazepam (Ativan) 0.5 mg PO Q6HR PRN; Protocol PRN Reason: Anxiety Stop: 12/19/17 20:32 Methylprednisolone Sodium Succinate (Solu-Medrol) 80 mg IVP Q8HR [facility] Stop: 12/20/17 12:59 Last Admin: 10/22/17 13:50 Dose: 80 mg Miscellaneous (Vte Chemical Prophylaxis Screen/ Admission) 1 ea [facility] PRN PRN PRN Reason: PROTOCOL Stop: 12/20/17 15:35 Olanzapine (Zyprexa) 5 mg PO HS [facility] PRN Reason: Protocol Stop: 12/19/17 20:59 Ondansetron HCl (Zofran) 4 mg IV Q8H PRN PRN Reason: Nausea / Vomiting Stop: 12/19/17 20:34 Polyethylene Glycol (Miralax) 17 gm PO DAILY [facility] Stop: 12/20/17 08:59 Last Admin: 10/22/17 09:12 Dose: 17 gm General: congested HEENT: NC/AT, PERRLA Neck: Supple, No JVD, No LAD Lungs: congested, wheezing, rales Cardiovascular: RRR, Normal S1, Normal S2, with murmur Abdomen: soft, tender, globular, positive bowel sound Extremities: excoriation, contracture Neurological: no change - Procedures Procedures: Procedures Procedure Code Date INTRODUCTION OF SERUM/TOX/VACCINE INTO MUSCLE, PERC APPROACH [id number] 12/28/16 Internal Medicine Assmt/Plan - Assessment Assessment: - Assessment Assessment: Acute COPD exacerbation HTN Dementia Acute Dehydration Hypercholesteremia dementia anxeity depression psychosis - Plan Plan: cont on iv abx o2 bronchodilator tx fall precaution dw rn and family
[2017-10-23] MEDS: methylPREDNISolone SS 40 mg Vial IVP SCH ×2 (04:42→12:44)
[2017-10-23] MEDS: Ipratropium Neb 0.5 mg/2.5 mL UD IH SCH ×3 (06:43→15:13)
[2017-10-23] MEDS: Albuterol Nebulizer 2.5mg/3mL HHN SCH ×3 (06:43→15:12)
[2017-10-23] MEDS: POLYETHYLENE GLYCOL 3350 17 GM PACK PO SCH (08:20)
[2017-10-23] MEDS: Ferrous Sulfate 325 MG TAB PO SCH ×2 (08:24→16:22)
[2017-10-23] MEDS: Aspirin 81mg Chewable Tab PO SCH (08:25)
[2017-10-23] MEDS: Calcium Carb/Vit D 500 mg/200 U Tab PO SCH ×2 (08:25→16:23)
[2017-10-23] MEDS: D5-0.45NS 1,000 ML IV SCH (11:29)
--- NOTE | 2017-10-23 22:05 | Discharge Summary ---
DATE OF DISCHARGE: 10/23/2017 CHIEF COMPLAINT: Low oxygen saturation. FINAL DIAGNOSES: Acute chronic obstructive pulmonary disease exacerbation, hypoxemia, dementia, hypertension, hypercholesterolemia, major depression and psychosis. HISTORY: This is an 83-year-old female ____ service from nursing facility with dementia, was admitted from nursing facility secondary to low oxygen saturation in the low 80s, in spite of all being placed on 100% non-rebreather mask. The patient was admitted through the ER. PHYSICAL EXAMINATION: VITAL SIGNS: Blood pressure 119/65, respirations 18, pulse 94, temperature 97.4. GENERAL: Elderly female, appears her stated age. NECK: Supple. No mass. LUNGS: Equal breath sounds, few rhonchi. HEART: Regular rate and rhythm with systolic ejection murmur. ABDOMEN: Soft, globular. EXTREMITIES: Positive excoriations. NEUROLOGIC: Limited. LABORATORY DATA: Noted hemoglobin 10.5, glucose 204. BNP 163. HOSPITAL COURSE: The patient was admitted to telemetry. Continue oxygen, bronchodilator treatments, IV steroids, empirically started on IV antibiotic, sputum were sent. Blood cultures were sent. The patient was referred to Dr. Jay for Pulmonary. The patient showed some improvement and cleared medically for discharge. CONDITION ON DISCHARGE: Fair. DISCHARGE INSTRUCTIONS: The patient to continue on oxygen, bronchodilator treatments and steroids at the nursing facility and the patient to be referred to the nearest ER if her condition worsens. JOB# [id number]
== END 2017-10-23 18:45 | DRG 191 ==
LOC: ER 17:56 → MSI 20:30
PROVIDERS: ADMIT Internal Medicine; ATTEND Internal Medicine
DX: J44.1 Chronic obstructive pulmonary disease with (acute) exacerbation (principal); E87.1 Hypo-osmolality and hyponatremia; I10 Essential (primary) hypertension; F03.90 Unspecified dementia, unspecified severity, without behavioral disturbance, psychotic disturbance, mood disturbance, and anxiety; E78.00 Pure hypercholesterolemia, unspecified; F32.9 Major depressive disorder, single episode, unspecified; F41.9 Anxiety disorder, unspecified; R09.02 Hypoxemia; F29 Unspecified psychosis not due to a substance or known physiological condition; E86.0 Dehydration; J20.9 Acute bronchitis, unspecified; J44.0 Chronic obstructive pulmonary disease with (acute) lower respiratory infection; Z88.3 Allergy status to other anti-infective agents; Z88.8 Allergy status to other drugs, medicaments and biological substances
CPT/HCPCS: 36415-UA; 71045-TC; 74000-TC; 80048-TC; 80053-TC; 83036-90; 83880-TC; 84443-TC; 84484-TC; 85025-TC; 90779; 93005; 94760; A9540; A9567; J0696; J1644; J2920; J7051; J7613; Z7610

== ENCOUNTER 2018-06-26 19:20 | Inpatient (IN) | payer MEDICARE, MEDICAID ==
--- NOTE | 2018-06-26 20:25 | ED Physician Chart ---
ED Chief Complaint/HPI - Patient Information Date Seen:: 06/26/18 Time Seen:: 20:22 Chief Complaint:: [employer] History of Present Illness:: 83 YR OLD WF WITH MULTIPLE MEDICAL PROBLEMS WITH SCHIZOPHRENIA DEMENTIA UNBLE TO CONVERSE WITH HER Allergies:: Allergies Allergy/AdvReac Type Severity Reaction Status Date / Time iodine Allergy Verified 08/30/17 13:01 meperidine Allergy Verified 08/30/17 11:17 niacin Allergy Verified 08/30/17 13:03 Family Medical History - Family Member Mother History Unknown: Yes Ethnicity: ED Septic Shock - . Is Septic Shock (SBP<90, OR Lactate>4 mmol\L) present?: No
[2018-06-26 20:41] LABS: % BASOPHILS 0.5 % (0.0-2.0); % EOSINOPHILS 0.6 % (0.0-5.0); % LYMPHOCYTES 14.8 % (20.0-50.0); % MONOCYTES 10.2 % (2.0-10.0); % NEUTROPHILS 73.9 % (40.0-80.0); EOSINOPHILE ABSOLUTE 0.1 Th/cmm (0.1-0.4); HEMOGLOBIN 10.7 gm/dL (12-16); LYMPHOCYTE ABSOLUTE 1.3 Th/cmm (1.5-3.0); MEAN CELL VOLUME 92.6 fl (81-100); MEAN CORPUSCULAR HGB CONC 33.5 pg (28.0-36.0); MEAN PLATELET VOLUME 9.1 fl; MONOCYTE ABSOLUTE 0.9 Th/cmm (0.3-1.0); NEUTROPHILE ABSOLUTE 6.4 Th/cmm (1.8-8.0); PLATELET COUNT 116 Th/cmm (150-400); RED BLOOD COUNT 3.46 Mil/cmm (3.80-5.20); RED CELL DISTRIBUTION WIDTH 13.4 % (11.5-20.0); WHITE BLOOD COUNT 8.7 Th/cmm (4.8-10.8)
[2018-06-26 20:58] LABS: ALB/GLOB RATIO 0.9 (1.0-1.8); ALBUMIN 3.7 gm/dL (3.7-5.3); ALKALINE PHOSPHATASE 112 U/L (34-104); ANION GAP 14.8 (7.0-16.0); BILIRUBIN,TOTAL 0.5 mg/dL (0.3-1.0); BUN - UREA NITROGEN 51 mg/dL (7-25); CALCIUM SERUM 10.7 mg/dL (8.6-10.3); CARBON DIOXIDE 23.2 mEq/L (21.0-31.0); CHLORIDE 111 mEq/L (98-107); CREATININE - SERUM 1.6 mg/dL (0.6-1.2); GLUCOSE 102 mg/dL (70-105); SGOT 26 U/L (13-39); SGPT/ALT 33 U/L (7-52); SODIUM SERUM 145 mEq/L (136-145); TOTAL PROTEIN,SERUM 7.7 gm/dL (6.0-8.3)
[2018-06-27] MEDS ORDERED: Pantoprazole 80 MG in Sodium Chloride 0.9% 100 ML IV ONE (00:22)
[2018-06-27] MEDS ORDERED: Morphine Sulfate 2 mg/mL 1mL Syr IVP PRN (00:35)
[2018-06-27] MEDS: D5-0.45NS 1,000 ML IV SCH ×2 (02:05→15:40)
[2018-06-27 03:11] VITALS: BP 145/68
[2018-06-27] MEDS: Calcium Carb/Vit D 500 mg/200 U Tab PO SCH ×2 (08:15→16:17)
[2018-06-27] MEDS: Ferrous Sulfate 325 MG TAB PO SCH ×2 (08:16→16:17)
[2018-06-27] MEDS: POLYETHYLENE GLYCOL 3350 17 GM PACK PO SCH (08:17)
[2018-06-27] MEDS ORDERED: LACTOSE REDUCED FOOD PO SCH (09:00)
--- NOTE | 2018-06-27 09:30 | Diagnostic Imaging Report ---
CT abdomen and pelvis without intravenous contrast Indication: Darks stools, pain Comparison: None, Technique: Axial images were obtained from the lung bases to the bilateral proximal femurs without IV contrast. Coronal reconstructions were made. total DLP: 593, CTDI11.7 FINDINGS: Minimal bibasilar passive atelectatic and consolidative changes are noted. Assessment of the solid organs is limited due to lack of IV contrast. No focal hepatic lesions. The patient is status post cholecystectomy. No focal splenic lesions. Pancreatic atrophy is noted. No discrete focal lesions. Splenic heavy atherosclerosis is noted with splenic artery calcifications. No focal adrenal lesions. Bilateral renal calcifications are seen which are probably vascular. Small nonobstructive stones cannot be excluded. There may be small right renal parapelvic cysts. There is massive distal fecal impaction with mass effect and anterior displacement of the urinary bladder. Additional generalized copious stool is seen throughout the colon. There is a moderate-sized hiatal hernia. No free fluid or free air. Degenerative changes of the spine and pelvis are noted. There is a 2 mm anterolisthesis of L4 on L5 likely due to severe facet arthropathy IMPRESSION: Massive distal fecal impaction with marked mass effect and anterior displacement of the urinary bladder. Additional generalized copious stool is noted. Moderate size hiatal hernia. Evidence of prior cholecystectomy. Heavy atherosclerotic vascular disease. Bilateral renal vascular calcifications are noted. Punctate nonobstructive stones cannot be excluded. Questionable small right parapelvic renal cysts. Minimal bibasilar passive atelectatic and consolidative changes. .
[2018-06-27] MEDS ORDERED: Fleet Enema 135 mL RC ONE (09:45)
[2018-06-27] MEDS ORDERED: Magnesium Citrate 1.75 GM/300 mL Bottle PO ONE (09:45)
[2018-06-27 13:14] LABS: URINE SOURCE CLEAN C
[2018-06-27 13:17] LABS: URINE BILIRUBIN NEGATIVE (NEGATIVE); URINE BLOOD SMALL (NEGATIVE); URINE GLUCOSE (UA) NEGATIVE (NEGATIVE); URINE KETONE NEGATIVE (NEGATIVE); URINE LEUKOCYTE ESTERASE MODERATE (NEGATIVE); URINE MICROSCOPIC INDICATED? YES; URINE NITRATE POSITIVE (NEGATIVE); URINE PROTEIN TRACE mg/dL (NEGATIVE); URINE UROBILINOGEN 0.2 E.U./dL (0.2 - 1.0)
[2018-06-27 13:26] LABS: URINE CLARITY CLOUDY (CLEAR); URINE COLOR YELLOW
[2018-06-27 13:31] LABS: URINE RBC 0-2 /hpf (0-5)
[2018-06-27 13:33] LABS: URINE BACTERIA MANY /hpf (NONE SEEN); URINE EPITHELIAL CELLS OCCASIONAL /lpf (FEW)
[2018-06-27] MEDS: Lactulose 10 Gm/15 mL 30mL UDC PO SCH ×2 (14:11→20:45)
--- NOTE | 2018-06-27 14:25 | Internal Medicine Prog Note ---
Internal Medicine Subjective - Subjective Service Date: 06/27/18 ([id number] [facility] ) Internal Medicine Objective - Results Result Diagrams: 06/26/18 20:30 06/26/18 20:30 Recent Labs: Laboratory Last Values WBC 8.7 Th/cmm (4.8-10.8) 06/26/18 20:30 RBC 3.46 Mil/cmm (3.80-5.20) L 06/26/18 20:30 Hgb 10.7 gm/dL (12-16) L 06/26/18 20:30 Hct 32.0 % (41.0-60) L 06/26/18 20:30 MCV 92.6 fl (81-100) 06/26/18 20:30 MCH 31.0 pg (27.0-31.0) 06/26/18 20:30 MCHC Differential 33.5 pg (28.0-36.0) 06/26/18 20:30 RDW 13.4 % (11.5-20.0) 06/26/18 20:30 Plt Count 116 Th/cmm (150-400) L 06/26/18 20:30 MPV 9.1 fl 06/26/18 20:30 Neutrophils % 73.9 % (40.0-80.0) 06/26/18 20:30 Lymphocytes % 14.8 % (20.0-50.0) L 06/26/18 20:30 Monocytes % 10.2 % (2.0-10.0) H 06/26/18 20:30 Eosinophils % 0.6 % (0.0-5.0) 06/26/18 20:30 Basophils % 0.5 % (0.0-2.0) 06/26/18 20:30 Sodium 145 mEq/L (136-145) 06/26/18 20:30 Potassium 4.0 mEq/L (3.5-5.1) 06/26/18 20:30 Chloride 111 mEq/L (98-107) H 06/26/18 20:30 Carbon Dioxide 23.2 mEq/L (21.0-31.0) 06/26/18 20:30 Anion Gap 14.8 (7.0-16.0) 06/26/18 20:30 BUN 51 mg/dL (7-25) H 06/26/18 20:30 Creatinine 1.6 mg/dL (0.6-1.2) H 06/26/18 20:30 Est GFR ( Amer) TNP 06/26/18 20:30 Est GFR (Non-Af Amer) TNP 06/26/18 20:30 BUN/Creatinine Ratio 31.9 06/26/18 20:30 Glucose 102 mg/dL (70-105) 06/26/18 20:30 Calcium 10.7 mg/dL (8.6-10.3) H 06/26/18 20:30 Total Bilirubin 0.5 mg/dL (0.3-1.0) 06/26/18 20:30 AST 26 U/L (13-39) 06/26/18 20:30 ALT 33 U/L (7-52) 06/26/18 20:30 Alkaline Phosphatase 112 U/L (34-104) H 06/26/18 20:30 Total Protein 7.7 gm/dL (6.0-8.3) 06/26/18 20:30 Albumin 3.7 gm/dL (3.7-5.3) 06/26/18 20:30 Globulin 4.0 gm/dL 06/26/18 20:30 Albumin/Globulin Ratio 0.9 (1.0-1.8) L 06/26/18 20:30 Urine Source CLEAN C 06/27/18 12:00 Urine Color YELLOW 06/27/18 12:00 Urine Clarity CLOUDY (CLEAR) H 06/27/18 12:00 Urine pH 6.0 (4.6 - 8.0) 06/27/18 12:00 Ur Specific [place] 1.025 (1.005-1.030) 06/27/18 12:00 Urine Protein TRACE mg/dL (NEGATIVE) 06/27/18 12:00 Urine Glucose (UA) NEGATIVE mg/dL (NEGATIVE) 06/27/18 12:00 Urine Ketones NEGATIVE mg/dL (NEGATIVE) 06/27/18 12:00 Urine Blood SMALL (NEGATIVE) H 06/27/18 12:00 Urine Nitrate POSITIVE (NEGATIVE) H 06/27/18 12:00 Urine Bilirubin NEGATIVE (NEGATIVE) 06/27/18 12:00 Urine Urobilinogen 0.2 E.U./dL (0.2 - 1.0) 06/27/18 12:00 Ur Leukocyte Esterase MODERATE (NEGATIVE) H 06/27/18 12:00 Urine RBC 0-2 /hpf (0-5) 06/27/18 12:00 Urine WBC 10-25 /hpf (0-5) H 06/27/18 12:00 Ur Epithelial Cells OCCASIONAL /lpf (FEW) 06/27/18 12:00 Urine Bacteria MANY /hpf (NONE SEEN) H 06/27/18 12:00 - Physical Exam Vitals and I&O: Vital Signs Temp 97.3 F 06/27/18 09:00 Pulse 80 06/27/18 09:00 Resp 18 06/27/18 09:00 BP 132/56 06/27/18 09:00 Pulse Ox 98 06/27/18 09:00 Intake & Output 06/26/18 06/27/18 06/27/18 18:59 06:59 18:59 Weight (lbs) 140 lb Other: Weight Source Estimated Active Medications: Current Medications Acetaminophen (Tylenol) 650 mg PO Q4H PRN PRN Reason: Pain Or Fever above 101 Stop: 08/26/18 00:34 Bupropion HCl (Wellbutrin Sr) 150 mg PO DAILY [facility]; Protocol Stop: 08/26/18 08:59 Last Admin: 06/27/18 08:15 Dose: 150 mg Buspirone HCl (Buspar) 2.5 mg PO BID [facility]; Protocol Stop: 08/26/18 08:59 Last Admin: 06/27/18 08:16 Dose: 2.5 mg Calcium/Vitamin D (Oscal W/Vitamin D) 1 tab PO BID [facility] Stop: 08/26/18 08:59 Last Admin: 06/27/18 08:15 Dose: 1 tab Ferrous Sulfate (Iron) 325 mg PO BID [facility] Stop: 08/26/18 08:59 Last Admin: 06/27/18 08:16 Dose: 325 mg Dextrose/Sodium Chloride (D5-0.45ns) 1,000 mls @ 80 mls/hr IV .[id number] [facility] Stop: 08/26/18 00:44 Last Admin: 06/27/18 02:05 Dose: 80 mls/hr Levofloxacin (Levaquin Pb) 500 mg in 100 mls @ 100 mls/hr IV Q24HR [facility] Stop: 08/26/18 14:59 Lactulose (Cephulac) 30 gm PO TID [facility] Stop: 08/26/18 13:59 Last Admin: 06/27/18 14:11 Dose: Not Given Lisinopril (Zestril) 20 mg PO BID [facility] Stop: 08/26/18 08:59 Last Admin: 06/27/18 08:16 Dose: 20 mg Morphine Sulfate (Morphine) 2 mg IVP Q4H PRN PRN Reason: Pain (Severe) Stop: 08/26/18 00:34 Olanzapine (Zyprexa) 5 mg PO HS [facility]; Protocol Stop: 08/26/18 20:59 Ondansetron HCl (Zofran) 4 mg IV Q8H PRN PRN Reason: Nausea / Vomiting Stop: 08/26/18 00:34 Pantoprazole Sodium (Protonix) 40 mg IVP BID [facility] Stop: 08/26/18 08:59 Last Admin: 06/27/18 08:18 Dose: 40 mg Polyethylene Glycol (Miralax) 17 gm PO DAILY [facility] Stop: 08/26/18 08:59 Last Admin: 06/27/18 08:17 Dose: 17 gm - Procedures Procedures: Procedures Procedure Code Date INTRODUCTION OF SERUM/TOX/VACCINE INTO MUSCLE, PERC APPROACH [id number] 12/28/16
[2018-06-27] MEDS ORDERED: Levofloxacin 500mg/100mL 500 MG/100 ML BAG IV SCH (15:00)
[2018-06-27] MEDS: Levofloxacin 500mg/100mL 500 MG/100 ML BAG IV SCH (15:35)
--- NOTE | 2018-06-27 17:21 | History & Physical ---
ADMIT DATE: 06/27/2018 CHIEF COMPLAINT: Dark tarry stools. HISTORY OF PRESENT ILLNESS: This is an 83-year-old female who is a [facility] resident, who is admitted to the telemetry unit due to 1-day history of dark tarry stools associated with slight distention, increase in weakness and confusion at the [facility]. For further management, the patient is admitted. PAST MEDICAL HISTORY: Hypertension, dementia, pneumonia, hypercholesterolemia, dementia, anxiety, major depression, psychosis. FAMILY HISTORY: Noncontributory. SOCIAL HISTORY: The patient is a [facility] resident, requiring 24-hour nursing care. MEDICATIONS: Please see medication list. REVIEW OF SYSTEMS: Unable to obtain. PHYSICAL EXAMINATION: GENERAL: Elderly female, awake, confused, in no apparent distress. VITAL SIGNS: Temperature 97.3, heart rate 80, respiration of 18, blood pressure 132/56, O2 98%. HEENT: Head: Normocephalic, atraumatic. NECK: Supple. No mass. LUNGS: Clear bilaterally. HEART: Regular rate and rhythm. ABDOMEN: Soft, nontender. Mildly distended. SKIN: Positive for excoriations. EXTREMITIES: No clubbing, cyanosis, edema. LABORATORY DATA: WBC 8.7, H and H 10.7/32.0, platelet of 116. Sodium 145, potassium 4.0, chloride 111, BUN 51, creatinine 1.6. Urinalysis, the patient had a urinalysis done, positive for UTI. DIAGNOSTICS: The patient had a CT of the abdomen and pelvis, impression is massive distal fecal impaction with marked mass effect and anterior displacement of the urinary bladder. ASSESSMENT: Anemia, gastrointestinal bleed, fecal impaction, hypertension, dementia, pneumonia, hypercholesterolemia, dementia, anxiety, major depression, psychosis, acute urinary tract infection, acute renal insufficiency. PLAN: The patient will get GI consultation. Keep patient n.p.o. for now. Keep the patient on IV fluids for hydration. We will monitor the patient's BUN and creatinine closely as well as H and H. Keep patient on Protonix 40 mg IV push b.i.d. We will continue to follow this patient. JOB# [id number]
--- NOTE | 2018-06-28 04:29 | Consultation ---
DATE OF CONSULTATION: 06/27/2018 GASTROENTEROLOGY CONSULTATION REQUESTING PHYSICIAN: Dr. German Patel. REASON FOR CONSULTATION: Coffee-ground emesis/upper GI bleed. HISTORY OF PRESENT ILLNESS: An 83-year-old female with history of dementia, correction resident, hypertension, history of pneumonia, hyperlipidemia, anxiety, major depression and psychosis, admitted for coffee-ground emesis. She also on CT imaging was noted to have fecal impaction. She is a poor historian. PAST MEDICAL HISTORY: As above. MEDICATIONS: Here are Tylenol, Wellbutrin, BuSpar, calcium with vitamin D, IV fluids, iron, lisinopril, morphine, Zyprexa, Zofran, Protonix, and MiraLax. ALLERGIES: IODINE, DEMEROL AND NIACIN. SOCIAL HISTORY: alf resident, known recent tobacco, alcohol or drugs. FAMILY HISTORY: Noncontributory. REVIEW OF SYSTEMS: A comprehensive 12-point review of system was conducted and is only positive for those signs and symptoms present in history of present illness. PHYSICAL EXAMINATION: VITAL SIGNS: Temperature 97.6, blood pressure is 145/68, pulse of 71, respirations 18, O2 sat 100%. GENERAL: The patient is a well-developed, chronically ill-appearing female who is in no acute distress. HEENT: Sclerae nonicteric. Oropharynx is clear. CARDIOVASCULAR: Regular rate and rhythm. LUNGS: With occasional rhonchi at the base. ABDOMEN: Soft, nontender, nondistended, normoactive bowel sounds. EXTREMITIES: No clubbing, cyanosis or edema. LABORATORY DATA AND IMAGING: WBC 8.7, hemoglobin 10.7, platelet count 116. Sodium 145, creatinine 1.6. Liver labs are normal. Alkaline phosphatase 112. Albumin is 3.7. CT of the abdomen and pelvis preliminarily shows a hiatal hernia and fecal impaction. IMPRESSION: 1. Upper gastrointestinal bleed, rule out esophagitis, gastritis, peptic ulcer disease, angiodysplasia, upper gastrointestinal neoplasm, etc. 2. Fecal impaction per CT imaging with resultant ileus likely causing nausea and vomiting. 3. Gastroesophageal reflux disease and hiatal hernia. 4. Anemia, likely chronic. 5. Dementia. RECOMMENDATIONS: 1. Upper endoscopy tomorrow pending consent from family or conservator. 2. Monitor hemoglobin and transfuse as necessary. 3. Protonix. 4. Digital disimpaction and laxatives to clear fecal impaction. Thank you, Dr. German Patel for involving us in the care of your patient. If you have any further questions, please call us. JOB# [id number]
[2018-06-28] MEDS: D5-0.45NS 1,000 ML IV SCH ×2 (05:44→17:02)
[2018-06-28 06:30] LABS: INR 0.92 (0.5-1.4); PROTHROMBIN TIME (TEST) 9.6 SECONDS (9.5-11.5)
[2018-06-28 06:36] LABS: WHITE BLOOD COUNT 5.4 Th/cmm (4.8-10.8)
[2018-06-28 06:38] LABS: HEMATOCRIT 27.7 % (41.0-60); HEMOGLOBIN 9.4 gm/dL (12-16); MEAN CORPUSCULAR HEMOGLOBIN 31.3 pg (27.0-31.0); MEAN PLATELET VOLUME 9.4 fl; PLATELET COUNT 118 Th/cmm (150-400); RED BLOOD COUNT 3.01 Mil/cmm (3.80-5.20); RED CELL DISTRIBUTION WIDTH 13.2 % (11.5-20.0)
[2018-06-28 07:07] LABS: BAND NEUTROPHILE 3 % (0-10); BASOPHIL 1 % (0-3); EOSINOPHIL 2 % (0-5); LYMPHOCYTE 27 % (20-50); MONOCYTE 15 % (2-10); NEUTROPHILS 52 % (40-80); PLATELET ESTIMATE DECREASED PLATELETS (NORMAL)
[2018-06-28 07:28] LABS: ANION GAP 11.7 (7.0-16.0); BUN - UREA NITROGEN 38 mg/dL (7-25); CALCIUM SERUM 10.1 mg/dL (8.6-10.3); CARBON DIOXIDE 23.7 mEq/L (21.0-31.0); CHLORIDE 111 mEq/L (98-107); CREATININE - SERUM 1.1 mg/dL (0.6-1.2); GLUCOSE 97 mg/dL (70-105); POTASSIUM SERUM 3.4 mEq/L (3.5-5.1); SODIUM SERUM 143 mEq/L (136-145)
[2018-06-28] MEDS ORDERED: Propofol 10 mg/mL 20mL Vial **SURGERY USE ONLY IV ONE (07:45)
[2018-06-28] MEDS ORDERED: Lidocaine 2% Gel 5 mL TP ONE (07:45)
--- NOTE | 2018-06-28 09:07 | Diagnostic Imaging Report ---
CHEST X-RAY: AP view INDICATION: pain COMPARISON: 10/20/2017 FINDINGS: Mild chronic lung changes are noted. There is no focal consolidation or pleural effusions . Cardiomegaly is noted. Atherosclerosis is noted. IMPRESSION: Mild chronic lung changes. No focal consolidation identified Cardiomegaly.
--- NOTE | 2018-06-28 09:33 | Diagnostic Imaging Report ---
KUB single view HISTORY: Constipation pain. COMPARISON: CT abdomen and pelvis on 06/26/2018 FINDINGS: Generalized gas-filled loops of bowel are seen with distal fecal impaction which appears mildly decreased. Cholecystectomy clips are noted. IMPRESSION: Generalized gas-filled loops of bowel with distal fecal impaction which appears mildly decreased since previous CT examination.
[2018-06-28] MEDS: POLYETHYLENE GLYCOL 3350 17 GM PACK PO SCH (09:34)
[2018-06-28] MEDS: Lactulose 10 Gm/15 mL 30mL UDC PO SCH ×3 (09:34→21:00)
[2018-06-28] MEDS: Calcium Carb/Vit D 500 mg/200 U Tab PO SCH ×2 (09:35→17:11)
[2018-06-28] MEDS: Ferrous Sulfate 325 MG TAB PO SCH ×2 (09:35→17:11)
[2018-06-28] MEDS ORDERED: Potassium Chloride 20 mEq ER Tab PO ONE (12:36)
--- NOTE | 2018-06-28 13:53 | Operative Report ---
DATE OF SURGERY: 06/28/2018 PROCEDURE: Esophagogastroduodenoscopy with biopsy. PREOPERATIVE DIAGNOSIS: Upper gastrointestinal bleed. POST-PROCEDURE DIAGNOSES: 1. Mild erosive esophagitis, status post biopsy; mild biopsy site oozing that stopped on its own. 2. Small to moderate size hiatal hernia. 3. Mild gastritis, status post biopsy and CLOtest. 4. Normal duodenum up to second portion. INDICATIONS: An 83-year-old female admitted for coffee-ground emesis and upper GI bleed. She also was noted on CT imaging to have fecal impaction and distention. CONSENT: Informed consent was obtained from the patient's family prior to the procedure after detailed explanation of risks, benefits, and alternatives including but not limited to infection, bleeding, perforation and . SEDATION: Monitored anesthesia care by Dr. Slaughter. DESCRIPTION OF PROCEDURE AND FINDINGS: The procedure took place as an inpatient in the GI suite of [facility]. The patient was kept in a left lateral decubitus position. Adequate sedation achieved by Dr. Slaughter. An Olympus diagnostic upper endoscope was advanced via the patient's mouth and into the esophagus. Here, there was mildly erosive esophagitis distally with the Z line slightly irregular appearing at 37 cm from the gums. Biopsies were obtained from this area and submitted for histopathology. There was some biopsy site oozing that stopped on its own with observation and lavage. There was a 3 cm hiatal hernia best noted on retroflexed view in the stomach. The diaphragmatic pinch was at 40 cm from the gums. Mild gastritis was identified in the antrum. Biopsies were obtained from antrum and mid body submitted for CLOtest as well as pathology. The pyloric channel and duodenum up to second portion appeared normal. The scope was then withdrawn from the patient. The patient tolerated the procedure well, and no complications are anticipated. RECOMMENDATIONS: 1. Follow biopsy results and treat for H. pylori if positive. 2. Protonix. 3. Antiemetics. 4. Laxatives. 5. Oral diet as per speech therapy. Thank you Dr. German Patel for involving us in the care of the patient. If you have any further questions, please call us. JOB# [id number] [facility]
--- NOTE | 2018-06-28 15:18 | Internal Medicine Prog Note ---
Internal Medicine Subjective - Subjective Service Date: 06/28/18 Patient seen and examined:: with staff Patient is:: awake, verbal Per staff patient has:: tolerating meds Internal Medicine Objective - Results Result Diagrams: 06/28/18 05:30 06/28/18 05:30 Recent Labs: Laboratory Last Values WBC 5.4 Th/cmm (4.8-10.8) 06/28/18 05:30 RBC 3.01 Mil/cmm (3.80-5.20) L 06/28/18 05:30 Hgb 9.4 gm/dL (12-16) L 06/28/18 05:30 Hct 27.7 % (41.0-60) L 06/28/18 05:30 MCV 92.0 fl (81-100) 06/28/18 05:30 MCH 31.3 pg (27.0-31.0) H 06/28/18 05:30 MCHC Differential 34.0 pg (28.0-36.0) 06/28/18 05:30 RDW 13.2 % (11.5-20.0) 06/28/18 05:30 Plt Count 118 Th/cmm (150-400) L 06/28/18 05:30 MPV 9.4 fl 06/28/18 05:30 Add Manual Diff YES 06/28/18 05:30 Neutrophils % 73.9 % (40.0-80.0) 06/26/18 20:30 Band Neutrophils % 3 % (0-10) 06/28/18 05:30 Lymphocytes % 14.8 % (20.0-50.0) L 06/26/18 20:30 Monocytes % 10.2 % (2.0-10.0) H 06/26/18 20:30 Eosinophils % 0.6 % (0.0-5.0) 06/26/18 20:30 Basophils % 0.5 % (0.0-2.0) 06/26/18 20:30 Neutrophils (Manual) 52 % (40-80) 06/28/18 05:30 Lymphocytes 27 % (20-50) 06/28/18 05:30 Monocytes 15 % (2-10) H 06/28/18 05:30 Eosinophils 2 % (0-5) 06/28/18 05:30 Basophils 1 % (0-3) 06/28/18 05:30 Platelet Estimate DECREASED PLATELETS (NORMAL) 06/28/18 05:30 PT 9.6 SECONDS (9.5-11.5) 06/28/18 05:30 INR 0.92 (0.5-1.4) 06/28/18 05:30 PTT (Actin FS) 28.8 SECONDS (26.0-38.0) 06/28/18 05:30 Sodium 143 mEq/L (136-145) 06/28/18 05:30 Potassium 3.4 mEq/L (3.5-5.1) L 06/28/18 05:30 Chloride 111 mEq/L (98-107) H 06/28/18 05:30 Carbon Dioxide 23.7 mEq/L (21.0-31.0) 06/28/18 05:30 Anion Gap 11.7 (7.0-16.0) 06/28/18 05:30 BUN 38 mg/dL (7-25) H 06/28/18 05:30 Creatinine 1.1 mg/dL (0.6-1.2) 06/28/18 05:30 Est GFR ( Amer) TNP 06/28/18 05:30 Est GFR (Non-Af Amer) TNP 06/28/18 05:30 BUN/Creatinine Ratio 34.5 06/28/18 05:30 Glucose 97 mg/dL (70-105) 06/28/18 05:30 POC Glucose 114 MG/DL (70 - 105) H 06/28/18 07:26 Calcium 10.1 mg/dL (8.6-10.3) 06/28/18 05:30 Total Bilirubin 0.5 mg/dL (0.3-1.0) 06/26/18 20:30 AST 26 U/L (13-39) 06/26/18 20:30 ALT 33 U/L (7-52) 06/26/18 20:30 Alkaline Phosphatase 112 U/L (34-104) H 06/26/18 20:30 Total Protein 7.7 gm/dL (6.0-8.3) 06/26/18 20:30 Albumin 3.7 gm/dL (3.7-5.3) 06/26/18 20:30 Globulin 4.0 gm/dL 06/26/18 20:30 Albumin/Globulin Ratio 0.9 (1.0-1.8) L 06/26/18 20:30 Urine Source CLEAN C 06/27/18 12:00 Urine Color YELLOW 06/27/18 12:00 Urine Clarity CLOUDY (CLEAR) H 06/27/18 12:00 Urine pH 6.0 (4.6 - 8.0) 06/27/18 12:00 Ur Specific [place] 1.025 (1.005-1.030) 06/27/18 12:00 Urine Protein TRACE mg/dL (NEGATIVE) 06/27/18 12:00 Urine Glucose (UA) NEGATIVE mg/dL (NEGATIVE) 06/27/18 12:00 Urine Ketones NEGATIVE mg/dL (NEGATIVE) 06/27/18 12:00 Urine Blood SMALL (NEGATIVE) H 06/27/18 12:00 Urine Nitrate POSITIVE (NEGATIVE) H 06/27/18 12:00 Urine Bilirubin NEGATIVE (NEGATIVE) 06/27/18 12:00 Urine Urobilinogen 0.2 E.U./dL (0.2 - 1.0) 06/27/18 12:00 Ur Leukocyte Esterase MODERATE (NEGATIVE) H 06/27/18 12:00 Urine RBC 0-2 /hpf (0-5) 06/27/18 12:00 Urine WBC 10-25 /hpf (0-5) H 06/27/18 12:00 Ur Epithelial Cells OCCASIONAL /lpf (FEW) 06/27/18 12:00 Urine Bacteria MANY /hpf (NONE SEEN) H 06/27/18 12:00 Helicobacter pylori Ab NEGATIVE (NEGATIVE) 06/28/18 08:15 - Physical Exam Vitals and I&O: Vital Signs Temp 97.8 F 06/28/18 09:00 Pulse 70 06/28/18 09:00 Resp 18 06/28/18 09:00 BP 123/72 06/28/18 09:00 Pulse Ox 92 06/28/18 09:00 Intake & Output 06/27/18 06/28/18 06/28/18 18:59 06:59 18:59 Intake Total 1000 1650 50 Balance 1000 1650 50 Weight (lbs) 140 lb 140 lb Intake: Intake, IV Amount 1000 1000 D5-0.45NS 1,000 ml @ 80 1000 1000 mls/hr IV .[id number] [facility] Rx #:[id number] Oral 650 50 Other: # Voids 4 4 # Bowel Movements 4 2 Stool Characteristics Liquid Liquid Soft Liquid Weight Source Bedscale Bedscale Active Medications: Current Medications Acetaminophen (Tylenol) 650 mg PO Q4H PRN PRN Reason: Pain Or Fever above 101 Stop: 08/26/18 00:34 Bupropion HCl (Wellbutrin Sr) 150 mg PO DAILY [facility]; Protocol Stop: 08/26/18 08:59 Last Admin: 06/28/18 09:35 Dose: 150 mg Buspirone HCl (Buspar) 2.5 mg PO BID [facility]; Protocol Stop: 08/26/18 08:59 Last Admin: 06/28/18 09:35 Dose: 2.5 mg Calcium/Vitamin D (Oscal W/Vitamin D) 1 tab PO BID [facility] Stop: 08/26/18 08:59 Last Admin: 06/28/18 09:35 Dose: 1 tab Ferrous Sulfate (Iron) 325 mg PO BID [facility] Stop: 08/26/18 08:59 Last Admin: 06/28/18 09:35 Dose: 325 mg Dextrose/Sodium Chloride (D5-0.45ns) 1,000 mls @ 80 mls/hr IV .[id number] [facility] Stop: 08/26/18 00:44 Last Admin: 06/28/18 05:44 Dose: 80 mls/hr Levofloxacin (Levaquin Pb) 500 mg in 100 mls @ 100 mls/hr IV Q24HR [facility] Stop: 08/26/18 14:59 Last Admin: 06/27/18 15:35 Dose: 100 mls/hr Lactulose (Cephulac) 30 gm PO TID [facility] Stop: 08/26/18 13:59 Last Admin: 06/28/18 14:37 Dose: 30 gm Lisinopril (Zestril) 20 mg PO BID [facility] Stop: 08/26/18 08:59 Morphine Sulfate (Morphine) 2 mg IVP Q4H PRN PRN Reason: Pain (Severe) Stop: 08/26/18 00:34 Olanzapine (Zyprexa) 5 mg PO HS [facility]; Protocol Stop: 08/26/18 20:59 Last Admin: 06/27/18 21:56 Dose: 5 mg Ondansetron HCl (Zofran) 4 mg IV Q8H PRN PRN Reason: Nausea / Vomiting Stop: 08/26/18 00:34 Pantoprazole Sodium (Protonix) 40 mg IVP BID [facility] Stop: 08/26/18 08:59 Last Admin: 06/28/18 09:34 Dose: 40 mg Polyethylene Glycol (Miralax) 17 gm PO DAILY [facility] Stop: 08/26/18 08:59 Last Admin: 06/28/18 09:34 Dose: 17 gm General: weak, alert HEENT: NC/AT, PERRLA Neck: Supple Lungs: CTAB Cardiovascular: RRR, Normal S1, Normal S2, without murmur Abdomen: soft, non-tender, non-distended, positive bowel sound Neurological: alert - Procedures Procedures: Procedures Procedure Code Date INTRODUCTION OF SERUM/TOX/VACCINE INTO MUSCLE, PERC APPROACH [id number] 12/28/16 Internal Medicine Assmt/Plan - Assessment Assessment: Anemia, gastrointestinal bleed, fecal impaction, hypertension, dementia, pneumonia, hypercholesterolemia, dementia, anxiety, major depression, psychosis, acute urinary tract infection, acute renal insufficiency. - Plan Plan: continue with ppi monitor h/h ivf for hydration follow up labs in am continue current plan of care
[2018-06-28] MEDS: Levofloxacin 500mg/100mL 500 MG/100 ML BAG IV SCH (15:30)
[2018-06-29] MEDS: D5-0.45NS 1,000 ML IV SCH ×2 (05:18→21:45)
[2018-06-29 06:33] LABS: % BASOPHILS 0.1 % (0.0-2.0); % EOSINOPHILS 1.6 % (0.0-5.0); % LYMPHOCYTES 17.8 % (20.0-50.0); % MONOCYTES 4.6 % (2.0-10.0); % NEUTROPHILS 75.9 % (40.0-80.0); EOSINOPHILE ABSOLUTE 0.2 Th/cmm (0.1-0.4); HEMOGLOBIN 9.1 gm/dL (12-16); LYMPHOCYTE ABSOLUTE 2.2 Th/cmm (1.5-3.0); MEAN CELL VOLUME 92.3 fl (81-100); MEAN CORPUSCULAR HEMOGLOBIN 31.2 pg (27.0-31.0); MEAN CORPUSCULAR HGB CONC 33.8 pg (28.0-36.0); MEAN PLATELET VOLUME 10.3 fl; MONOCYTE ABSOLUTE 0.6 Th/cmm (0.3-1.0); NEUTROPHILE ABSOLUTE 9.3 Th/cmm (1.8-8.0); PLATELET COUNT 144 Th/cmm (150-400); RED BLOOD COUNT 2.93 Mil/cmm (3.80-5.20); RED CELL DISTRIBUTION WIDTH 13.2 % (11.5-20.0); WHITE BLOOD COUNT 12.3 Th/cmm (4.8-10.8)
[2018-06-29 07:03] LABS: BUN - UREA NITROGEN 22 mg/dL (7-25); CALCIUM SERUM 9.8 mg/dL (8.6-10.3); CARBON DIOXIDE 22.6 mEq/L (21.0-31.0); CHLORIDE 111 mEq/L (98-107); GLUCOSE 113 mg/dL (70-105); MAGNESIUM 1.9 mg/dL (1.9-2.7); PHOSPHOROUS 1.6 mg/dL (2.5-5.0); POTASSIUM SERUM 3.6 mEq/L (3.5-5.1); SODIUM SERUM 141 mEq/L (136-145)
[2018-06-29] MEDS: Ferrous Sulfate 325 MG TAB PO SCH ×2 (08:44→16:23)
[2018-06-29] MEDS: Lactulose 10 Gm/15 mL 30mL UDC PO SCH ×3 (08:45→21:52)
[2018-06-29] MEDS: POLYETHYLENE GLYCOL 3350 17 GM PACK PO SCH (08:46)
[2018-06-29] MEDS: Calcium Carb/Vit D 500 mg/200 U Tab PO SCH ×2 (08:51→16:23)
--- NOTE | 2018-06-29 10:19 | GI Progress Note ---
Subjective - Review of Systems Service Date: 06/29/18 Subjective: HAVING LIQUID STOOLS. Objective - Results Result Diagrams: 06/29/18 05:45 06/29/18 05:45 Recent Labs: Laboratory Last Values WBC 12.3 Th/cmm (4.8-10.8) H 06/29/18 05:45 RBC 2.93 Mil/cmm (3.80-5.20) L 06/29/18 05:45 Hgb 9.1 gm/dL (12-16) L 06/29/18 05:45 Hct 27.0 % (41.0-60) L 06/29/18 05:45 MCV 92.3 fl (81-100) 06/29/18 05:45 MCH 31.2 pg (27.0-31.0) H 06/29/18 05:45 MCHC Differential 33.8 pg (28.0-36.0) 06/29/18 05:45 RDW 13.2 % (11.5-20.0) 06/29/18 05:45 Plt Count 144 Th/cmm (150-400) L 06/29/18 05:45 MPV 10.3 fl 06/29/18 05:45 Add Manual Diff YES 06/28/18 05:30 Neutrophils % 75.9 % (40.0-80.0) 06/29/18 05:45 Band Neutrophils % 3 % (0-10) 06/28/18 05:30 Lymphocytes % 17.8 % (20.0-50.0) L 06/29/18 05:45 Monocytes % 4.6 % (2.0-10.0) 06/29/18 05:45 Eosinophils % 1.6 % (0.0-5.0) 06/29/18 05:45 Basophils % 0.1 % (0.0-2.0) 06/29/18 05:45 Neutrophils (Manual) 52 % (40-80) 06/28/18 05:30 Lymphocytes 27 % (20-50) 06/28/18 05:30 Monocytes 15 % (2-10) H 06/28/18 05:30 Eosinophils 2 % (0-5) 06/28/18 05:30 Basophils 1 % (0-3) 06/28/18 05:30 Platelet Estimate DECREASED PLATELETS (NORMAL) 06/28/18 05:30 PT 9.6 SECONDS (9.5-11.5) 06/28/18 05:30 INR 0.92 (0.5-1.4) 06/28/18 05:30 PTT (Actin FS) 28.8 SECONDS (26.0-38.0) 06/28/18 05:30 Sodium 141 mEq/L (136-145) 06/29/18 05:45 Potassium 3.6 mEq/L (3.5-5.1) 06/29/18 05:45 Chloride 111 mEq/L (98-107) H 06/29/18 05:45 Carbon Dioxide 22.6 mEq/L (21.0-31.0) 06/29/18 05:45 Anion Gap 11.0 (7.0-16.0) 06/29/18 05:45 BUN 22 mg/dL (7-25) 06/29/18 05:45 Creatinine 1.0 mg/dL (0.6-1.2) 06/29/18 05:45 Est GFR ( Amer) TNP 06/29/18 05:45 Est GFR (Non-Af Amer) TNP 06/29/18 05:45 BUN/Creatinine Ratio 22.0 06/29/18 05:45 Glucose 113 mg/dL (70-105) H 06/29/18 05:45 POC Glucose 114 MG/DL (70 - 105) H 06/28/18 07:26 Calcium 9.8 mg/dL (8.6-10.3) 06/29/18 05:45 Phosphorus 1.6 mg/dL (2.5-5.0) L 06/29/18 05:45 Magnesium 1.9 mg/dL (1.9-2.7) 06/29/18 05:45 Total Bilirubin 0.5 mg/dL (0.3-1.0) 06/26/18 20:30 AST 26 U/L (13-39) 06/26/18 20:30 ALT 33 U/L (7-52) 06/26/18 20:30 Alkaline Phosphatase 112 U/L (34-104) H 06/26/18 20:30 B-Natriuretic Peptide 287.0 pg/mL (5.0-100.0) H 06/29/18 05:45 Total Protein 7.7 gm/dL (6.0-8.3) 06/26/18 20:30 Albumin 3.7 gm/dL (3.7-5.3) 06/26/18 20:30 Globulin 4.0 gm/dL 06/26/18 20:30 Albumin/Globulin Ratio 0.9 (1.0-1.8) L 06/26/18 20:30 Urine Source CLEAN C 06/27/18 12:00 Urine Color YELLOW 06/27/18 12:00 Urine Clarity CLOUDY (CLEAR) H 06/27/18 12:00 Urine pH 6.0 (4.6 - 8.0) 06/27/18 12:00 Ur Specific [place] 1.025 (1.005-1.030) 06/27/18 12:00 Urine Protein TRACE mg/dL (NEGATIVE) 06/27/18 12:00 Urine Glucose (UA) NEGATIVE mg/dL (NEGATIVE) 06/27/18 12:00 Urine Ketones NEGATIVE mg/dL (NEGATIVE) 06/27/18 12:00 Urine Blood SMALL (NEGATIVE) H 06/27/18 12:00 Urine Nitrate POSITIVE (NEGATIVE) H 06/27/18 12:00 Urine Bilirubin NEGATIVE (NEGATIVE) 06/27/18 12:00 Urine Urobilinogen 0.2 E.U./dL (0.2 - 1.0) 06/27/18 12:00 Ur Leukocyte Esterase MODERATE (NEGATIVE) H 06/27/18 12:00 Urine RBC 0-2 /hpf (0-5) 06/27/18 12:00 Urine WBC 10-25 /hpf (0-5) H 06/27/18 12:00 Ur Epithelial Cells OCCASIONAL /lpf (FEW) 06/27/18 12:00 Urine Bacteria MANY /hpf (NONE SEEN) H 06/27/18 12:00 Helicobacter pylori Ab NEGATIVE (NEGATIVE) 06/28/18 08:15 - Physical Exam Vitals and I&O: Vital Signs Temp 99.3 F 06/29/18 07:55 Pulse 102 06/29/18 08:44 Resp 18 06/29/18 07:57 BP 137/78 06/29/18 08:44 Pulse Ox 94 06/29/18 07:55 Intake & Output 06/28/18 06/29/18 06/29/18 18:59 06:59 18:59 Intake Total 1304 981.333 Balance 1304 981.333 Weight (lbs) 63.503 kg 63.503 kg Intake: Intake, IV Amount 1004 981.333 D5-0.45NS 1,000 ml @ 80 904 981.333 mls/hr IV .[id number] [facility] Rx #:[id number] Levofloxacin 500mg/100mL 100 500 mg In 100 ml @ 100 mls/hr IV Q24HR [facility] Rx#: [id number] Oral 300 Other: # Voids 3 3 # Bowel Movements 3 5 Stool Characteristics Soft Soft Soft Weight Source Bedscale Bedscale Active Medications: Current Medications Acetaminophen (Tylenol) 650 mg PO Q4H PRN PRN Reason: Pain Or Fever above 101 Stop: 08/26/18 00:34 Bupropion HCl (Wellbutrin Sr) 150 mg PO DAILY [facility]; Protocol Stop: 08/26/18 08:59 Last Admin: 06/29/18 08:44 Dose: 150 mg Buspirone HCl (Buspar) 2.5 mg PO BID [facility]; Protocol Stop: 08/26/18 08:59 Last Admin: 06/29/18 08:45 Dose: 2.5 mg Calcium/Vitamin D (Oscal W/Vitamin D) 1 tab PO BID [facility] Stop: 08/26/18 08:59 Last Admin: 06/29/18 08:51 Dose: 1 tab Ferrous Sulfate (Iron) 325 mg PO BID [facility] Stop: 08/26/18 08:59 Last Admin: 06/29/18 08:44 Dose: 325 mg Dextrose/Sodium Chloride (D5-0.45ns) 1,000 mls @ 80 mls/hr IV .[id number] [facility] Stop: 08/26/18 00:44 Last Admin: 06/29/18 05:18 Dose: 80 mls/hr Levofloxacin (Levaquin Pb) 500 mg in 100 mls @ 100 mls/hr IV Q24HR [facility] Stop: 08/26/18 14:59 Last Infusion: 06/28/18 17:45 Dose: Infused Lactulose (Cephulac) 30 gm PO TID [facility] Stop: 08/26/18 13:59 Last Admin: 06/29/18 08:45 Dose: Not Given Lisinopril (Zestril) 20 mg PO BID [facility] Stop: 08/26/18 08:59 Last Admin: 06/29/18 08:44 Dose: 20 mg Morphine Sulfate (Morphine) 2 mg IVP Q4H PRN PRN Reason: Pain (Severe) Stop: 08/26/18 00:34 Olanzapine (Zyprexa) 5 mg PO HS [facility]; Protocol Stop: 08/26/18 20:59 Last Admin: 06/28/18 21:00 Dose: 5 mg Ondansetron HCl (Zofran) 4 mg IV Q8H PRN PRN Reason: Nausea / Vomiting Stop: 08/26/18 00:34 Pantoprazole Sodium (Protonix) 40 mg IVP BID [facility] Stop: 08/26/18 08:59 Last Admin: 06/29/18 08:44 Dose: 40 mg Polyethylene Glycol (Miralax) 17 gm PO DAILY [facility] Stop: 08/26/18 08:59 Last Admin: 06/29/18 08:46 Dose: Not Given General: No acute distress HEENT: Atraumatic Neck: Supple Cardiovascular: Regular rate Lungs: Clear to auscultation Abdomen: Bowel sounds - Procedures Procedures: Procedures Procedure Code Date INTRODUCTION OF SERUM/TOX/VACCINE INTO MUSCLE, PERC APPROACH [id number] 12/28/16 Assessment/Plan - Problem List Patient Problems: All Active Problems Anemia (Acute) D64.9 GI bleed (Acute) K92.2 - Assessment Assessment: IMPRESSION: 1. UGIB - LIKELY DUE TO ESOPHAGITIS AND/OR GASTRITIS. EGD 06/28 ALSO SHOWED HIATAL HERNIA. 2. FECAL IMPACTION, S/P DIGITAL DISIMPACTION. 3. ANEMIA. 4. DEMENTIA. RECS: 1. LAXATIVES. 2. ADVANCE ORAL DIET. 3. PROTONIX. 4. ANTIEMETICS. 5. MONITOR HGB.
--- NOTE | 2018-06-29 11:54 | Diagnostic Imaging Report ---
KUB abdominal film HISTORY: Abdominal distention, constipation The exam demonstrates a nonspecific gas pattern with nondilated large and small bowel. No free intraperitoneal air. Surgical clips are seen in the right upper quadrant consistent with a prior cholecystectomy. Vascular calcification noted. Severe degenerative changes noted in the lower lumbar spine. Mild to moderate degenerative changes seen about the hips. IMPRESSION: 1. Nonspecific bowel gas pattern 2. Extensive atherosclerotic vascular changes 3. Findings consistent with a prior cholecystectomy 4. Severe degenerative changes particularly within the lower lumbar spine
[2018-06-29] MEDS ORDERED: Potassium Phosphate 30 MMOLE in Sodium Chloride 0.9% 250 ML IV ONE (12:00)
--- NOTE | 2018-06-29 12:45 | Internal Medicine Prog Note ---
Internal Medicine Subjective - Subjective Patient seen and examined:: with staff, chart reviewed Patient is:: asleep, interactive, eyes closed, in bed Patient Complaints of:: congestion Per staff patient has:: no adverse event, no episodes of fall, poor appetite, tolerating meds Internal Medicine Objective - Results Result Diagrams: 06/29/18 05:45 06/29/18 05:45 Recent Labs: Laboratory Last Values WBC 12.3 Th/cmm (4.8-10.8) H 06/29/18 05:45 RBC 2.93 Mil/cmm (3.80-5.20) L 06/29/18 05:45 Hgb 9.1 gm/dL (12-16) L 06/29/18 05:45 Hct 27.0 % (41.0-60) L 06/29/18 05:45 MCV 92.3 fl (81-100) 06/29/18 05:45 MCH 31.2 pg (27.0-31.0) H 06/29/18 05:45 MCHC Differential 33.8 pg (28.0-36.0) 06/29/18 05:45 RDW 13.2 % (11.5-20.0) 06/29/18 05:45 Plt Count 144 Th/cmm (150-400) L 06/29/18 05:45 MPV 10.3 fl 06/29/18 05:45 Add Manual Diff YES 06/28/18 05:30 Neutrophils % 75.9 % (40.0-80.0) 06/29/18 05:45 Band Neutrophils % 3 % (0-10) 06/28/18 05:30 Lymphocytes % 17.8 % (20.0-50.0) L 06/29/18 05:45 Monocytes % 4.6 % (2.0-10.0) 06/29/18 05:45 Eosinophils % 1.6 % (0.0-5.0) 06/29/18 05:45 Basophils % 0.1 % (0.0-2.0) 06/29/18 05:45 Neutrophils (Manual) 52 % (40-80) 06/28/18 05:30 Lymphocytes 27 % (20-50) 06/28/18 05:30 Monocytes 15 % (2-10) H 06/28/18 05:30 Eosinophils 2 % (0-5) 06/28/18 05:30 Basophils 1 % (0-3) 06/28/18 05:30 Platelet Estimate DECREASED PLATELETS (NORMAL) 06/28/18 05:30 PT 9.6 SECONDS (9.5-11.5) 06/28/18 05:30 INR 0.92 (0.5-1.4) 06/28/18 05:30 PTT (Actin FS) 28.8 SECONDS (26.0-38.0) 06/28/18 05:30 Sodium 141 mEq/L (136-145) 06/29/18 05:45 Potassium 3.6 mEq/L (3.5-5.1) 06/29/18 05:45 Chloride 111 mEq/L (98-107) H 06/29/18 05:45 Carbon Dioxide 22.6 mEq/L (21.0-31.0) 06/29/18 05:45 Anion Gap 11.0 (7.0-16.0) 06/29/18 05:45 BUN 22 mg/dL (7-25) 06/29/18 05:45 Creatinine 1.0 mg/dL (0.6-1.2) 06/29/18 05:45 Est GFR ( Amer) TNP 06/29/18 05:45 Est GFR (Non-Af Amer) TNP 06/29/18 05:45 BUN/Creatinine Ratio 22.0 06/29/18 05:45 Glucose 113 mg/dL (70-105) H 06/29/18 05:45 POC Glucose 114 MG/DL (70 - 105) H 06/28/18 07:26 Calcium 9.8 mg/dL (8.6-10.3) 06/29/18 05:45 Phosphorus 1.6 mg/dL (2.5-5.0) L 06/29/18 05:45 Magnesium 1.9 mg/dL (1.9-2.7) 06/29/18 05:45 Total Bilirubin 0.5 mg/dL (0.3-1.0) 06/26/18 20:30 AST 26 U/L (13-39) 06/26/18 20:30 ALT 33 U/L (7-52) 06/26/18 20:30 Alkaline Phosphatase 112 U/L (34-104) H 06/26/18 20:30 B-Natriuretic Peptide 287.0 pg/mL (5.0-100.0) H 06/29/18 05:45 Total Protein 7.7 gm/dL (6.0-8.3) 06/26/18 20:30 Albumin 3.7 gm/dL (3.7-5.3) 06/26/18 20:30 Globulin 4.0 gm/dL 06/26/18 20:30 Albumin/Globulin Ratio 0.9 (1.0-1.8) L 06/26/18 20:30 Urine Source CLEAN C 06/27/18 12:00 Urine Color YELLOW 06/27/18 12:00 Urine Clarity CLOUDY (CLEAR) H 06/27/18 12:00 Urine pH 6.0 (4.6 - 8.0) 06/27/18 12:00 Ur Specific [place] 1.025 (1.005-1.030) 06/27/18 12:00 Urine Protein TRACE mg/dL (NEGATIVE) 06/27/18 12:00 Urine Glucose (UA) NEGATIVE mg/dL (NEGATIVE) 06/27/18 12:00 Urine Ketones NEGATIVE mg/dL (NEGATIVE) 06/27/18 12:00 Urine Blood SMALL (NEGATIVE) H 06/27/18 12:00 Urine Nitrate POSITIVE (NEGATIVE) H 06/27/18 12:00 Urine Bilirubin NEGATIVE (NEGATIVE) 06/27/18 12:00 Urine Urobilinogen 0.2 E.U./dL (0.2 - 1.0) 06/27/18 12:00 Ur Leukocyte Esterase MODERATE (NEGATIVE) H 06/27/18 12:00 Urine RBC 0-2 /hpf (0-5) 06/27/18 12:00 Urine WBC 10-25 /hpf (0-5) H 06/27/18 12:00 Ur Epithelial Cells OCCASIONAL /lpf (FEW) 06/27/18 12:00 Urine Bacteria MANY /hpf (NONE SEEN) H 06/27/18 12:00 Helicobacter pylori Ab NEGATIVE (NEGATIVE) 06/28/18 08:15 - Physical Exam Vitals and I&O: Vital Signs Temp 99.1 F 06/29/18 11:00 Pulse 90 06/29/18 11:00 Resp 18 06/29/18 12:00 BP 113/65 06/29/18 11:00 Pulse Ox 95 06/29/18 11:00 Intake & Output 06/28/18 06/29/18 06/29/18 18:59 06:59 18:59 Intake Total 1304 981.333 Balance 1304 981.333 Weight (lbs) 63.503 kg 63.503 kg Intake: Intake, IV Amount 1004 981.333 D5-0.45NS 1,000 ml @ 80 904 981.333 mls/hr IV .[id number] [facility] Rx #:[id number] Levofloxacin 500mg/100mL 100 500 mg In 100 ml @ 100 mls/hr IV Q24HR [facility] Rx#: [id number] Oral 300 Other: # Voids 3 3 # Bowel Movements 3 5 Stool Characteristics Soft Soft Soft Weight Source Bedscale Bedscale Active Medications: Current Medications Acetaminophen (Tylenol) 650 mg PO Q4H PRN PRN Reason: Pain Or Fever above 101 Stop: 08/26/18 00:34 Bupropion HCl (Wellbutrin Sr) 150 mg PO DAILY [facility]; Protocol Stop: 08/26/18 08:59 Last Admin: 06/29/18 08:44 Dose: 150 mg Buspirone HCl (Buspar) 2.5 mg PO BID [facility]; Protocol Stop: 08/26/18 08:59 Last Admin: 06/29/18 08:45 Dose: 2.5 mg Calcium/Vitamin D (Oscal W/Vitamin D) 1 tab PO BID [facility] Stop: 08/26/18 08:59 Last Admin: 06/29/18 08:51 Dose: 1 tab Ferrous Sulfate (Iron) 325 mg PO BID [facility] Stop: 08/26/18 08:59 Last Admin: 06/29/18 08:44 Dose: 325 mg Dextrose/Sodium Chloride (D5-0.45ns) 1,000 mls @ 80 mls/hr IV .[id number] [facility] Stop: 08/26/18 00:44 Last Admin: 06/29/18 05:18 Dose: 80 mls/hr Piperacillin Sod/Tazobactam (Sod 4.5 gm/ Sodium Chloride) 100 mls @ 100 mls/hr IV Q8HR [facility] Stop: 08/28/18 12:59 Potassium Phosphate 30 mmole/ (Sodium Chloride) 260 mls @ 65 mls/hr IV X1 ONE Stop: 12/06/18 15:59 Lactulose (Cephulac) 30 gm PO TID [facility] Stop: 08/26/18 13:59 Last Admin: 06/29/18 08:45 Dose: Not Given Lisinopril (Zestril) 20 mg PO BID [facility] Stop: 08/26/18 08:59 Last Admin: 06/29/18 08:44 Dose: 20 mg Morphine Sulfate (Morphine) 2 mg IVP Q4H PRN PRN Reason: Pain (Severe) Stop: 08/26/18 00:34 Olanzapine (Zyprexa) 5 mg PO HS [facility]; Protocol Stop: 08/26/18 20:59 Last Admin: 06/28/18 21:00 Dose: 5 mg Ondansetron HCl (Zofran) 4 mg IV Q8H PRN PRN Reason: Nausea / Vomiting Stop: 08/26/18 00:34 Pantoprazole Sodium (Protonix) 40 mg IVP BID [facility] Stop: 08/26/18 08:59 Last Admin: 06/29/18 08:44 Dose: 40 mg Polyethylene Glycol (Miralax) 17 gm PO DAILY [facility] Stop: 08/26/18 08:59 Last Admin: 06/29/18 08:46 Dose: Not Given General: weak, demented HEENT: NC/AT, PERRLA Neck: Supple Lungs: congested, rales Cardiovascular: RRR, Normal S1, Normal S2, with murmur Abdomen: soft, non-tender, globular, non-distended, positive bowel sound Extremities: excoriation, contracture Neurological: no change, disorganized, unable to follow command - Procedures Procedures: Procedures Procedure Code Date INTRODUCTION OF SERUM/TOX/VACCINE INTO MUSCLE, PERC APPROACH [id number] 12/28/16 Internal Medicine Assmt/Plan - Assessment Assessment: - Assessment Assessment: uti esbl Anemia, gastrointestinal bleed, fecal impaction, hypertension, dementia, pneumonia, hypercholesterolemia, dementia, anxiety, major depression, psychosis, acute urinary tract infection, acute renal insufficiency. - Plan Plan: continue with ppi monitor h/h ivf for hydration follow up labs in am continue current plan of care - Plan Plan: change abx to zosyn cpm see orders
--- NOTE | 2018-06-29 13:53 | Pathology Report ---
[id number] Collection Date: 06/28/2018 Surgeon: Dr. Ang Harrison Specimen Description: 1. Antrum biopsy. 2. Esophageal biopsy. Gross Description: Part I: Received in formalin is a 0.2 cm roche soft tissue fragment. Totally submitted in one cassette labelled A. Gross Description: Part II: Received in formalin is a 0.2 cm roche soft tissue fragment. Totally submitted in one cassette labelled B. Microscopic Description: Part I: The histologic sections show gastric mucosa with mild chronic inflammation present consisting of lymphocytes and plasma cells. The Giemsa stains show no evidence for Helicobacter pylori. Diagnosis: Part I: 1. Mild chronic gastritis, antrum biopsy. 2. The Giemsa stain is negative for Helicobacter pylori. Microscopic Description: Part II: The histologic sections show esophageal mucosa consisting of squamous and glandular mucosa with chronic inflammation present consisting of lymphocytes and plasma cells. The PAS stains show no evidence for fungal organisms. The Alcian blue stain shows no significant abnormalities. Diagnosis: Part II: Chronic inflammation consistent with esophagogastritis (esophageal biopsy). [facility]# [id number] [facility]
[2018-06-30 05:36] LABS: % BASOPHILS 0.8 % (0.0-2.0); % EOSINOPHILS 5.3 % (0.0-5.0); % LYMPHOCYTES 27.2 % (20.0-50.0); % MONOCYTES 10.8 % (2.0-10.0); % NEUTROPHILS 55.9 % (40.0-80.0); BASOPHILE ABSOLUTE 0.1 Th/cumm (0-0.2); EOSINOPHILE ABSOLUTE 0.4 Th/cmm (0.1-0.4); HEMATOCRIT 25.9 % (41.0-60); HEMOGLOBIN 8.6 gm/dL (12-16); LYMPHOCYTE ABSOLUTE 1.8 Th/cmm (1.5-3.0); MEAN CELL VOLUME 92.8 fl (81-100); MEAN CORPUSCULAR HEMOGLOBIN 30.8 pg (27.0-31.0); MEAN CORPUSCULAR HGB CONC 33.2 pg (28.0-36.0); MONOCYTE ABSOLUTE 0.7 Th/cmm (0.3-1.0); NEUTROPHILE ABSOLUTE 3.7 Th/cmm (1.8-8.0); PLATELET COUNT 146 Th/cmm (150-400); RED BLOOD COUNT 2.79 Mil/cmm (3.80-5.20); RED CELL DISTRIBUTION WIDTH 13.1 % (11.5-20.0)
[2018-06-30 05:38] LABS: ANION GAP 10.6 (7.0-16.0); BUN - UREA NITROGEN 19 mg/dL (7-25); CALCIUM SERUM 9.7 mg/dL (8.6-10.3); CARBON DIOXIDE 22.1 mEq/L (21.0-31.0); CHLORIDE 112 mEq/L (98-107); CREATININE - SERUM 1.1 mg/dL (0.6-1.2); GLUCOSE 103 mg/dL (70-105); POTASSIUM SERUM 3.7 mEq/L (3.5-5.1); SODIUM SERUM 141 mEq/L (136-145); WHITE BLOOD COUNT 6.7 Th/cmm (4.8-10.8)
[2018-06-30] MEDS: Lactulose 10 Gm/15 mL 30mL UDC PO SCH ×3 (08:18→20:39)
[2018-06-30] MEDS: Ferrous Sulfate 325 MG TAB PO SCH ×2 (08:20→17:18)
[2018-06-30] MEDS: Calcium Carb/Vit D 500 mg/200 U Tab PO SCH ×2 (08:21→17:17)
[2018-06-30] MEDS: POLYETHYLENE GLYCOL 3350 17 GM PACK PO SCH (08:21)
[2018-06-30] MEDS ORDERED: Probiotic Screen MC PRN (11:01)
--- NOTE | 2018-06-30 12:07 | GI Progress Note ---
Subjective - Review of Systems Service Date: 06/30/18 Subjective: FEELS BETTER. GIBSON DIET. Objective - Results Result Diagrams: 06/30/18 05:19 06/30/18 05:19 Recent Labs: Laboratory Last Values WBC 6.7 Th/cmm (4.8-10.8) D 06/30/18 05:19 RBC 2.79 Mil/cmm (3.80-5.20) L 06/30/18 05:19 Hgb 8.6 gm/dL (12-16) L 06/30/18 05:19 Hct 25.9 % (41.0-60) L 06/30/18 05:19 MCV 92.8 fl (81-100) 06/30/18 05:19 MCH 30.8 pg (27.0-31.0) 06/30/18 05:19 MCHC Differential 33.2 pg (28.0-36.0) 06/30/18 05:19 RDW 13.1 % (11.5-20.0) 06/30/18 05:19 Plt Count 146 Th/cmm (150-400) L 06/30/18 05:19 MPV 9.0 fl 06/30/18 05:19 Add Manual Diff YES 06/28/18 05:30 Neutrophils % 55.9 % (40.0-80.0) 06/30/18 05:19 Band Neutrophils % 3 % (0-10) 06/28/18 05:30 Lymphocytes % 27.2 % (20.0-50.0) 06/30/18 05:19 Monocytes % 10.8 % (2.0-10.0) H 06/30/18 05:19 Eosinophils % 5.3 % (0.0-5.0) H 06/30/18 05:19 Basophils % 0.8 % (0.0-2.0) 06/30/18 05:19 Neutrophils (Manual) 52 % (40-80) 06/28/18 05:30 Lymphocytes 27 % (20-50) 06/28/18 05:30 Monocytes 15 % (2-10) H 06/28/18 05:30 Eosinophils 2 % (0-5) 06/28/18 05:30 Basophils 1 % (0-3) 06/28/18 05:30 Platelet Estimate DECREASED PLATELETS (NORMAL) 06/28/18 05:30 PT 9.6 SECONDS (9.5-11.5) 06/28/18 05:30 INR 0.92 (0.5-1.4) 06/28/18 05:30 PTT (Actin FS) 28.8 SECONDS (26.0-38.0) 06/28/18 05:30 Sodium 141 mEq/L (136-145) 06/30/18 05:19 Potassium 3.7 mEq/L (3.5-5.1) 06/30/18 05:19 Chloride 112 mEq/L (98-107) H 06/30/18 05:19 Carbon Dioxide 22.1 mEq/L (21.0-31.0) 06/30/18 05:19 Anion Gap 10.6 (7.0-16.0) 06/30/18 05:19 BUN 19 mg/dL (7-25) 06/30/18 05:19 Creatinine 1.1 mg/dL (0.6-1.2) 06/30/18 05:19 Est GFR ( Amer) TNP 06/30/18 05:19 Est GFR (Non-Af Amer) TNP 06/30/18 05:19 BUN/Creatinine Ratio 17.3 06/30/18 05:19 Glucose 103 mg/dL (70-105) 06/30/18 05:19 POC Glucose 114 MG/DL (70 - 105) H 06/28/18 07:26 Calcium 9.7 mg/dL (8.6-10.3) 06/30/18 05:19 Phosphorus 1.6 mg/dL (2.5-5.0) L 06/29/18 05:45 Magnesium 1.9 mg/dL (1.9-2.7) 06/29/18 05:45 Total Bilirubin 0.5 mg/dL (0.3-1.0) 06/26/18 20:30 AST 26 U/L (13-39) 06/26/18 20:30 ALT 33 U/L (7-52) 06/26/18 20:30 Alkaline Phosphatase 112 U/L (34-104) H 06/26/18 20:30 B-Natriuretic Peptide 469.0 pg/mL (5.0-100.0) H 12/07/18 05:19 Total Protein 7.7 gm/dL (6.0-8.3) 06/26/18 20:30 Albumin 3.7 gm/dL (3.7-5.3) 06/26/18 20:30 Globulin 4.0 gm/dL 06/26/18 20:30 Albumin/Globulin Ratio 0.9 (1.0-1.8) L 06/26/18 20:30 Urine Source CLEAN C 06/27/18 12:00 Urine Color YELLOW 06/27/18 12:00 Urine Clarity CLOUDY (CLEAR) H 06/27/18 12:00 Urine pH 6.0 (4.6 - 8.0) 06/27/18 12:00 Ur Specific [place] 1.025 (1.005-1.030) 06/27/18 12:00 Urine Protein TRACE mg/dL (NEGATIVE) 06/27/18 12:00 Urine Glucose (UA) NEGATIVE mg/dL (NEGATIVE) 06/27/18 12:00 Urine Ketones NEGATIVE mg/dL (NEGATIVE) 06/27/18 12:00 Urine Blood SMALL (NEGATIVE) H 06/27/18 12:00 Urine Nitrate POSITIVE (NEGATIVE) H 06/27/18 12:00 Urine Bilirubin NEGATIVE (NEGATIVE) 06/27/18 12:00 Urine Urobilinogen 0.2 E.U./dL (0.2 - 1.0) 06/27/18 12:00 Ur Leukocyte Esterase MODERATE (NEGATIVE) H 06/27/18 12:00 Urine RBC 0-2 /hpf (0-5) 06/27/18 12:00 Urine WBC 10-25 /hpf (0-5) H 06/27/18 12:00 Ur Epithelial Cells OCCASIONAL /lpf (FEW) 06/27/18 12:00 Urine Bacteria MANY /hpf (NONE SEEN) H 06/27/18 12:00 Helicobacter pylori Ab NEGATIVE (NEGATIVE) 06/28/18 08:15 - Physical Exam Vitals and I&O: Vital Signs Temp 96.5 F 06/30/18 07:52 Pulse 71 06/30/18 08:22 Resp 17 06/30/18 08:00 BP 122/56 06/30/18 08:22 Pulse Ox 95 06/30/18 07:52 Intake & Output 12/06/18 12/07/18 12/07/18 18:59 06:59 18:59 Intake Total 1700 200 Balance 1700 200 Weight (lbs) 63.503 kg 65.771 kg Intake: Intake, IV Amount 1100 100 D5-0.45NS 1,000 ml @ 80 1000 mls/hr IV .[id number] [facility] Rx #:[id number] Piperacillin Sodium/ 100 100 Tazobact 4.5 gm In Sodium Chloride 0.9% 100 ml @ 100 mls/hr IV Q8HR [facility] Rx #:[id number] Oral 600 100 Other: # Voids 3 3 # Bowel Movements 2 1 Stool Characteristics Soft Weight Source Bedscale Bedscale Active Medications: Current Medications Acetaminophen (Tylenol) 650 mg PO Q4H PRN PRN Reason: Pain Or Fever above 101 Stop: 08/26/18 00:34 Bupropion HCl (Wellbutrin Sr) 150 mg PO DAILY [facility]; Protocol Stop: 08/26/18 08:59 Last Admin: 06/30/18 08:19 Dose: 150 mg Buspirone HCl (Buspar) 2.5 mg PO BID [facility]; Protocol Stop: 08/26/18 08:59 Last Admin: 06/30/18 08:20 Dose: 2.5 mg Calcium/Vitamin D (Oscal W/Vitamin D) 1 tab PO BID [facility] Stop: 08/26/18 08:59 Last Admin: 06/30/18 08:21 Dose: 1 tab Ferrous Sulfate (Iron) 325 mg PO BID [facility] Stop: 08/26/18 08:59 Last Admin: 06/30/18 08:20 Dose: 325 mg Dextrose/Sodium Chloride (D5-0.45ns) 1,000 mls @ 80 mls/hr IV .[id number] [facility] Stop: 08/26/18 00:44 Last Admin: 06/29/18 21:45 Dose: 80 mls/hr Piperacillin Sod/Tazobactam (Sod 4.5 gm/ Sodium Chloride) 100 mls @ 100 mls/hr IV Q8HR [facility] Stop: 08/28/18 12:59 Last Admin: 06/30/18 04:53 Dose: 100 mls/hr Lactobacillus Rhamnosus (Culturelle 15b) 1 each PO DAILY [facility] Stop: 08/30/18 08:59 Lactulose (Cephulac) 30 gm PO TID [facility] Stop: 08/26/18 13:59 Last Admin: 12/07/18 08:18 Dose: 30 gm Lisinopril (Zestril) 20 mg PO BID [facility] Stop: 08/26/18 08:59 Last Admin: 06/30/18 08:22 Dose: 20 mg Miscellaneous (Probiotic Screen) 1 ea MC PRN PRN PRN Reason: PROTOCOL Stop: 08/29/18 11:00 Morphine Sulfate (Morphine) 2 mg IVP Q4H PRN PRN Reason: Pain (Severe) Stop: 08/26/18 00:34 Olanzapine (Zyprexa) 5 mg PO HS [facility]; Protocol Stop: 08/26/18 20:59 Last Admin: 06/29/18 21:42 Dose: 5 mg Ondansetron HCl (Zofran) 4 mg IV Q8H PRN PRN Reason: Nausea / Vomiting Stop: 08/26/18 00:34 Pantoprazole Sodium (Protonix) 40 mg IVP BID [facility] Stop: 08/26/18 08:59 Last Admin: 06/30/18 08:21 Dose: 40 mg Polyethylene Glycol (Miralax) 17 gm PO DAILY [facility] Stop: 08/26/18 08:59 Last Admin: 06/30/18 08:21 Dose: 17 gm General: No acute distress HEENT: Atraumatic Neck: Supple Cardiovascular: Regular rate Lungs: Clear to auscultation Abdomen: Bowel sounds - Procedures Procedures: Procedures Procedure Code Date INTRODUCTION OF SERUM/TOX/VACCINE INTO MUSCLE, PERC APPROACH [id number] 12/28/16 Assessment/Plan - Problem List Patient Problems: All Active Problems Anemia (Acute) D64.9 GI bleed (Acute) K92.2 - Assessment Assessment: IMPRESSION: 1. UGIB - LIKELY DUE TO ESOPHAGITIS AND/OR GASTRITIS. EGD 06/28 ALSO SHOWED HIATAL HERNIA. 2. FECAL IMPACTION, S/P DIGITAL DISIMPACTION; NOW BETTER. 3. ANEMIA. 4. DEMENTIA. RECS: 1. LAXATIVES. 2. CONTINUE PRESENT ORAL DIET. 3. PROTONIX. 4. ANTIEMETICS. 5. MONITOR HGB.
[2018-06-30] MEDS ORDERED: D5-0.45NS 1,000 ML IV SCH (12:45)
--- NOTE | 2018-06-30 16:02 | Discharge Summary ---
DATE OF DISCHARGE: 06/30/2018 CHIEF COMPLAINT: Black tarry stool. FINAL DIAGNOSES: Anemia, GI bleeding, fecal impaction, hypertension, dementia, pneumonia, hypercholesterolemia and psych disorder, major schizoaffective disorder, UTI, Escherichia coli, MDRO, bedridden generalized contractures. HISTORY: This is an 83-year-old ____ female with history of hypertension, dementia, hypercholesterolemia, admitted from nursing facility secondary to episode of black tarry stool. The patient was brought into the ER and noted to have urinary tract infection as well. PHYSICAL EXAMINATION: VITAL SIGNS: Blood pressure 101/50, respiration 18, pulse 70, temperature 97.6. GENERAL: Elderly male, appears stated age, chronically ill. NECK: Supple. No mass. LUNGS: Equal breath sounds, few rhonchi. HEART: Regular rate and rhythm with systolic ejection murmur. ABDOMEN: Soft, globular. EXTREMITIES: Positive excoriations. HOSPITAL COURSE: The patient was admitted to the medical floor. The patient was for GI. The patient had an EGD, which showed esophagitis as well as gastritis and a moderate hiatal hernia. The patient continued proton pump inhibitor. The microbiology is positive for E. coli, multi-drug resistant. The patient is on IV Zosyn. The patient sees the patient's son and is agreeable for long-term acute care. CONDITION ON DISCHARGE: Fair. OVERALL PROGNOSIS: Poor. DISCHARGE INSTRUCTIONS: The patient now to be transferred to long-term acute care and agrees. JOB# [id number]
[2018-07-01] MEDS ORDERED: Lactobacillus Rhamnosus GG 15 Billion CFU CAP.SPRINK PO SCH (09:00)
== END 2018-07-01 01:41 | DRG 377 ==
LOC: ER 19:20 → TELE 06-27 00:30
PROVIDERS: ADMIT Internal Medicine; ATTEND Internal Medicine
PROC: 0DB78ZX Excision of Stomach, Pylorus, Via Natural or Artificial Opening Endoscopic, Diagnostic (ICD-10-PCS; principal; 2018-06-28)
PROC: 0DB58ZX Excision of Esophagus, Via Natural or Artificial Opening Endoscopic, Diagnostic (ICD-10-PCS; 2018-06-28)
DX: K29.71 Gastritis, unspecified, with bleeding (principal); J18.9 Pneumonia, unspecified organism; N39.0 Urinary tract infection, site not specified; K22.11 Ulcer of esophagus with bleeding; D64.9 Anemia, unspecified; F03.90 Unspecified dementia, unspecified severity, without behavioral disturbance, psychotic disturbance, mood disturbance, and anxiety; I12.9 Hypertensive chronic kidney disease with stage 1 through stage 4 chronic kidney disease, or unspecified chronic kidney disease; N18.3 Chronic kidney disease, stage 3 (moderate); K56.41 Fecal impaction; F41.9 Anxiety disorder, unspecified; K21.0 Gastro-esophageal reflux disease with esophagitis; F29 Unspecified psychosis not due to a substance or known physiological condition; K44.9 Diaphragmatic hernia without obstruction or gangrene; N28.1 Cyst of kidney, acquired; E78.5 Hyperlipidemia, unspecified; F32.9 Major depressive disorder, single episode, unspecified; E78.00 Pure hypercholesterolemia, unspecified; N28.9 Disorder of kidney and ureter, unspecified; Z16.12 Extended spectrum beta lactamase (ESBL) resistance; F25.9 Schizoaffective disorder, unspecified; B96.20 Unspecified Escherichia coli [E. coli] as the cause of diseases classified elsewhere; Z16.24 Resistance to multiple antibiotics; Z74.01 Bed confinement status; Z88.8 Allergy status to other drugs, medicaments and biological substances; Z91.041 Radiographic dye allergy status
CPT/HCPCS: 36415-UA; 71045-TC; 74000-TC; 80048-TC; 80053-TC; 81001-TC; 82948-90; 83735-TC; 83880-TC; 84100-TC; 85007-TC; 85025-TC; 85610-TC; 87086-90; 87338-TC; 90799; 93005; 96374; C9113; J1956; J2543; J2704; J7030; J7051; X3401; X4304; Z7610

== ENCOUNTER 2018-12-22 16:59 | Inpatient (IN) | payer MEDICARE, MEDICAID ==
[2018-12-22] MEDS ORDERED: Sodium Chloride 0.9% 1,000 ML IV ONE (17:21)
--- NOTE | 2018-12-22 17:27 | ED Physician Chart ---
ED Chief Complaint/HPI - Patient Information Date Seen:: 12/22/18 Time Seen:: 17:15 Chief Complaint:: Melena History of Present Illness:: onset x one day of melena; Hx of GI Bleeds; no report of trauma, H/As, S/T, neck pain, C/P, SOB, Abd. Pain, A/N/V/D/C, fever, chills, or urinary s/s Allergies:: Allergies Allergy/AdvReac Type Severity Reaction Status Date / Time iodine Allergy Verified 06/26/18 22:04 meperidine Allergy Verified 06/26/18 22:04 niacin Allergy Verified 06/26/18 22:04 Vitals:: Vital Signs - 8 hr 12/22/18 17:17 Temp 97.3 F HR 71 RR 18 BP 91/50 O2 Sat % 98 Historian:: Patient, EMS Review:: Nurse's Note Reviewed, Old Chart Reviewed, EMS run form Reviewed ED Review of Systems - Review of Systems General/Constitutional: No fever, No chills, No weight loss, No weakness, No diaphoresis, No edema, No loss of appetite Skin: No skin lesions, No rash, No bruising Head: No headache, No light-headedness Eyes: No loss of vision, No pain, No diplopia ENT: No earache, No nasal drainage, No sore throat, No tinnitus Neck: No neck pain, No swelling, No thyromegaly, No stiffness, No mass noted Cardio Vascular: No chest pain, No palpitations, No PND, No orthopnea, No edema Pulmonary: No SOB, No cough, No sputum, No wheezing GI: Nausea, Vomiting, Diarrhea, No pain, Melena, Hematochezia, No constipation, Hematemesis G/U: No dysuria, No frequency, No hematuria, No nacturia Ribbon Cutter: No vaginal discharge, No abnormal vaginal bleed, No contraction Musculoskeletal: No bone or joint pain, No back pain, No muscle pain Endocrine: No polyuria, No polydipsia Psychiatric: No prior psych history, No depression, No anxiety, No suicidal ideation, No homicidal ideation, No auditory hallucination, No visual hallucination Hematopoietic: No bruising, No lymphadenopathy Allergic/Immuno: No urticaria, No angioedema Neurological: No syncope, No focal symptoms, No weakness, No paresthesia, No headache, No seizure, No dizziness, No confusion, No vertigo ED Past Medical History - Past Medical History Obtainable: Yes Past Medical History: HTN, PUD/GERD, Other (GI Bleed) Family History: HTN Social History: Non Smoker, No Alcohol, No Drug Use, , Care Facility Surgical History: None Psychiatricy History: None Medication: Reviewed Family Medical History - Family Member Mother History Unknown: Yes Ethnicity: ED Physical Exam - Physical Examination General/Constitutional: Awake, Well-developed, well-nourished, Alert, No distress, GCS 15, Non-toxic appearing, Ambulatory Head: Atraumatic Eyes: Lids, conjuctiva normal, PERRL, EOMI Skin: Nl inspection, No rash, No skin lesions, No ecchymosis, Well hydrated, No lymphadenopathy ENMT: External ears, nose nl, TM canals nl, Nasal exam nl, Lips, teeth, gums nl , Oropharynx nl, Tonsils nl Neck: Nontender, Full ROM w/o pain, No JVD, No nuchal rigidity, No bruit, No mass, No stridor Other Neck comments:: supple; no meningeal signs; no cervical tenderness; no bruits Respiratory: Nl effort/Exclusion, Clear to Auscultation, No Wheeze/Rhonchi/Rales Cardio Vascular: RRR, No murmur, gallop, rubs, NL S1 S2, Carotid/Femoral/Distal pulses equal bilaterally GI: No tenderness/rebounding/guarding, No organomegaly, No hernia, Normal BS's, Nondistended, No mass/bruits, No McBurney tenderness Other GI comments:: no pulsatile masses : No CVA tenderness Extremities: No tenderness or effusion, Full ROM, normal strength in all extremities, No edema, Normal digits & nails Neuro/Psych: Alert/oriented, DTR's symmetric, Normal sensory exam, Normal motor strength, Judgement/insight normal, Mood normal, Normal gait, No focal deficits Misc: Normal back, No paraspinal tenderness ED Labs/Radiology/EKG Results - Lab Results Comments:: Reviewed ED Septic Shock - . Is Septic Shock (SBP<90, OR Lactate>4 mmol\L) present?: No - <6hrs of presentation: Vital Signs: Vital Signs - 8 hr 05/31/19 17:17 Temp 97.3 F HR 71 RR 18 BP 91/50 O2 Sat % 98 ED Reassessment (Disposition) - Reassessment Reassessment Condition:: Improved - Diagnosis Diagnosis:: Melena; GI Bleed; Dehydration; Hypotension; Hypovolemia; Hypocalcemia; Hypoalbuminemia; UTI; Sepsis; Hypokalemia - Aftercare/Follow up Instructions Aftercare/Follow-Up Instructions:: Counseled pt regarding lab results/diagnosis & need follow up, Counseled pt & family regarding lab results/diagnosis & need follow up - Patient Disposition Discharge/Transfer:: Acute Care w/in this hosp Accepting Physician:: Dr. Patel Time Called:: 1844 Time Responded:: 18:45 Admitted to:: Telemetry Spoke to:: Dr. Patel Admitting Medical Physician:: Dr. Patel Condition at Disposition:: Stable, Improved
[2018-12-22 17:45] LABS: INR 0.88 (0.5-1.4)
[2018-12-22 17:47] LABS: URINE SOURCE CLEAN C
[2018-12-22 17:49] LABS: URINE BILIRUBIN NEGATIVE (NEGATIVE); URINE BLOOD NEGATIVE (NEGATIVE); URINE GLUCOSE (UA) NEGATIVE (NEGATIVE); URINE KETONE NEGATIVE (NEGATIVE); URINE LEUKOCYTE ESTERASE MODERATE (NEGATIVE); URINE MICROSCOPIC INDICATED? YES; URINE NITRATE POSITIVE (NEGATIVE); URINE PROTEIN 30 mg/dL (NEGATIVE); URINE UROBILINOGEN 0.2 E.U./dL (0.2 - 1.0)
[2018-12-22 17:50] LABS: URINE COLOR YELLOW
[2018-12-22 17:51] LABS: URINE CLARITY CLOUDY (CLEAR)
[2018-12-22 17:51] LABS: ALB/GLOB RATIO 1.2 (1.0-1.8); ALKALINE PHOSPHATASE 102 U/L (34-104); AMYLASE SERUM 43 U/L (29-103); BILIRUBIN,TOTAL 0.2 mg/dL (0.3-1.0); BUN - UREA NITROGEN 33 mg/dL (7-25); CALCIUM SERUM 7.6 mg/dL (8.6-10.3); CARBON DIOXIDE 19.9 mEq/L (21.0-31.0); CHLORIDE 111 mEq/L (98-107); CHOLESTEROL 153 mg/dL (<200); CREATININE - SERUM 1.8 mg/dL (0.6-1.2); CREATININE KINASE 86 U/L (30-223); GLUCOSE 100 mg/dL (70-105); HDL -HIGH DENSITY LIPOPROTEIN 41 mg/dL (23-92); LIPASE 24 U/L (11-82); SGOT 10 U/L (13-39); SGPT/ALT 7 U/L (7-52); SODIUM SERUM 139 mEq/L (136-145); TOTAL PROTEIN,SERUM 5.5 gm/dL (6.0-8.3); TRIGLYCERIDES < 10 mg/dL (<150)
[2018-12-22 17:53] LABS: URINE RBC 0-2 /hpf (0-5)
[2018-12-22 17:54] LABS: URINE BACTERIA MANY /hpf (NONE SEEN); URINE EPITHELIAL CELLS MODERATE /lpf (FEW)
[2018-12-22 17:55] LABS: POTASSIUM SERUM 2.9 mEq/L (3.5-5.1)
[2018-12-22] MEDS ORDERED: Potassium Chloride 20 mEq ER Tab PO ONE ×2 (18:10→18:16)
[2018-12-22] MEDS ORDERED: cefTRIAXone 1 GM in Sodium Chloride 0.9% 50 ML IV ONE (18:11)
[2018-12-22 18:18] LABS: % BASOPHILS 0.8 % (0.0-2.0); % EOSINOPHILS 7.2 % (0.0-5.0); % LYMPHOCYTES 32.7 % (20.0-50.0); % MONOCYTES 7.6 % (2.0-10.0); % NEUTROPHILS 51.7 % (40.0-80.0); BASOPHILE ABSOLUTE 0.1 Th/cumm (0-0.2); EOSINOPHILE ABSOLUTE 0.6 Th/cmm (0.1-0.4); HEMATOCRIT 30.5 % (41.0-60); HEMOGLOBIN 10.2 gm/dL (12-16); LYMPHOCYTE ABSOLUTE 2.9 Th/cmm (1.5-3.0); MEAN CELL VOLUME 92.5 fl (81-100); MEAN CORPUSCULAR HEMOGLOBIN 30.9 pg (27.0-31.0); MEAN CORPUSCULAR HGB CONC 33.4 pg (28.0-36.0); MONOCYTE ABSOLUTE 0.7 Th/cmm (0.3-1.0); NEUTROPHILE ABSOLUTE 4.7 Th/cmm (1.8-8.0); PLATELET COUNT 231 Th/cmm (150-400); RED CELL DISTRIBUTION WIDTH 13.2 % (11.5-20.0)
[2018-12-22] MEDS ORDERED: Ipratropium Neb 0.5 mg/2.5 mL UD HHN PRN (19:10)
[2018-12-22] MEDS ORDERED: Albuterol Nebulizer 2.5mg/3mL HHN PRN (19:10)
[2018-12-22] MEDS ORDERED: guaiFENesin 200 MG/10 ML UDC PO PRN (19:12)
[2018-12-22] MEDS: D5-0.9%NS 1,000 ML IV SCH (20:12)
[2018-12-22] MEDS: Ferrous Sulfate 325 MG TAB PO SCH (20:16)
--- NOTE | 2018-12-22 22:20 | History & Physical ---
ADMIT DATE: 12/22/2018 CHIEF COMPLAINT: Blood in stool, not feeling well. HISTORY OF PRESENT ILLNESS: This is an 83-year-old female with history of hypertension, GERD, dementia, elevated cholesterol, psych disorder, admitted from nursing facility secondary to noted to have blood in the stool, not feeling well. The patient was seen in the Emergency Room, noted to have low blood pressure and dehydrated. The patient is being admitted for further management. PAST MEDICAL HISTORY: As mentioned in history of present illness. PAST SURGICAL HISTORY: Status post previous EGD in 06/2018. ALLERGIES: IODINE, DEMEROL, NIACIN. MEDICATIONS: The patient is on BuSpar, lisinopril, pantoprazole, Wellbutrin, calcium, iron, and Maalox. FAMILY HISTORY: Noncontributory. SOCIAL HISTORY: The patient lives in a usp, requiring 24-hour total care. REVIEW OF SYSTEMS: This is limited secondary to pain, comatose state. We will try to obtain a more detailed review of system at a later date by talking to family members. There is a son Lorelei Gleason, number [phone]. Also try to get information from nursing staff at [facility], . PHYSICAL EXAMINATION: VITAL SIGNS: Blood pressure 90/50, this is improved to 120/56, respirations 18, pulse 71, and temperature 98.1. GENERAL: Elderly female, appears her stated age. NECK: Supple. LUNGS: Equal breath sounds, few rhonchi. HEART: Regular rate and rhythm with systolic ejection murmur. ABDOMEN: Soft, globular. EXTREMITIES: Positive excoriations. NEUROLOGIC: Limited. LABORATORY DATA: WBC 9, hemoglobin 10.2, platelets 231. INR 0.8. Sodium 139, potassium 3.9, BUN 32 and creatinine 1.8, bicarbonate 19, albumin 3.0. UA, many bacteria, 25 WBC. ASSESSMENT: Melena, possible gastrointestinal bleeding, anemia, hypokalemia, renal insufficiency/dehydration, moderate protein-calorie malnutrition, urinary tract infection, dementia, hypercholesterolemia, history of peptic ulcer disease/esophagitis. PLAN: Continue the patient on oxygen, bronchodilator treatment. Continue on IV hydration. We will progress CT of the abdomen and pelvis with oral contrast. We will refer the patient to GI. Continue the patient on IV proton pump inhibitor as well as antiemetic medications. We will monitor the patient closely in telemetry. JOB# [id number]
[2018-12-23] MEDS: Ferrous Sulfate 325 MG TAB PO SCH ×3 (08:17→20:27)
[2018-12-23] MEDS: Calcium Carb/Vit D 500 mg/200 U Tab PO SCH ×2 (08:17→16:02)
[2018-12-23] MEDS: POLYETHYLENE GLYCOL 3350 17 GM PACK PO SCH (08:17)
--- NOTE | 2018-12-23 08:45 | Diagnostic Imaging Report ---
Chest x-ray single view History: Cough Comparison: 06/28/2018 The heart size is normal. No focal pulmonary parenchymal processes. No hilar or mediastinal abnormalities. Impression: No acute abnormalities
[2018-12-23] MEDS: buPROPion XL 150 mg T 24 H PO SCH (08:55)
[2018-12-23] MEDS ORDERED: LACTOSE REDUCED FOOD PO SCH (09:00)
--- NOTE | 2018-12-23 11:34 | Internal Medicine Prog Note ---
Internal Medicine Subjective - Subjective Patient seen and examined:: with staff, chart reviewed Patient is:: awake, verbal, interactive, confused Patient Complaints of:: congestion Per staff patient has:: no adverse event, no episodes of fall, confused, tolerating meds Internal Medicine Objective - Results Result Diagrams: 12/22/18 17:25 12/22/18 17:25 Recent Labs: Laboratory Last Values WBC 9.0 Th/cmm (4.8-10.8) 12/22/18 17:25 RBC 3.30 Mil/cmm (3.80-5.20) L 12/22/18 17:25 Hgb 10.2 gm/dL (12-16) L 12/22/18 17:25 Hct 30.5 % (41.0-60) L 12/22/18 17:25 MCV 92.5 fl (81-100) 12/22/18 17:25 MCH 30.9 pg (27.0-31.0) 12/22/18 17:25 MCHC Differential 33.4 pg (28.0-36.0) 12/22/18 17:25 RDW 13.2 % (11.5-20.0) 12/22/18 17:25 Plt Count 231 Th/cmm (150-400) 12/22/18 17:25 MPV 11.0 fl 12/22/18 17:25 Neutrophils % 51.7 % (40.0-80.0) 12/22/18 17:25 Lymphocytes % 32.7 % (20.0-50.0) 12/22/18 17:25 Monocytes % 7.6 % (2.0-10.0) 12/22/18 17:25 Eosinophils % 7.2 % (0.0-5.0) H 12/22/18 17:25 Basophils % 0.8 % (0.0-2.0) 12/22/18 17:25 PT 9.3 SECONDS (9.5-11.5) L 12/22/18 17:25 INR 0.88 (0.5-1.4) 12/22/18 17:25 Sodium 139 mEq/L (136-145) 12/22/18 17:25 Potassium 2.9 mEq/L (3.5-5.1) L* 12/22/18 17:25 Chloride 111 mEq/L (98-107) H 12/22/18 17:25 Carbon Dioxide 19.9 mEq/L (21.0-31.0) L 12/22/18 17:25 Anion Gap 11.0 (7.0-16.0) 12/22/18 17:25 BUN 33 mg/dL (7-25) H 12/22/18 17:25 Creatinine 1.8 mg/dL (0.6-1.2) H 12/22/18 17:25 Est GFR ( Amer) TNP 12/22/18 17:25 Est GFR (Non-Af Amer) TNP 12/22/18 17:25 BUN/Creatinine Ratio 18.3 12/22/18 17:25 Glucose 100 mg/dL (70-105) 12/22/18 17:25 Calcium 7.6 mg/dL (8.6-10.3) L 12/22/18 17:25 Total Bilirubin 0.2 mg/dL (0.3-1.0) L 12/22/18 17:25 AST 10 U/L (13-39) L 12/22/18 17:25 ALT 7 U/L (7-52) 12/22/18 17:25 Alkaline Phosphatase 102 U/L (34-104) 12/22/18 17:25 Creatine Kinase 86 U/L (30-223) 12/22/18 17:25 Troponin I 0.02 ng/mL (0.01-0.05) 12/22/18 17:25 B-Natriuretic Peptide 36.1 pg/mL (5.0-100.0) 12/22/18 17:25 Total Protein 5.5 gm/dL (6.0-8.3) L 12/22/18 17:25 Albumin 3.0 gm/dL (3.7-5.3) L 12/22/18 17:25 Globulin 2.5 gm/dL 12/22/18 17:25 Albumin/Globulin Ratio 1.2 (1.0-1.8) 12/22/18 17:25 Triglycerides < 10 mg/dL (<150) 12/22/18 17:25 Cholesterol 153 mg/dL (<200) 12/22/18 17:25 LDL Cholesterol Direct 89 mg/dL (75-193) 12/22/18 17:25 HDL Cholesterol 41 mg/dL (23-92) 12/22/18 17:25 Amylase 43 U/L (29-103) 12/22/18 17:25 Lipase 24 U/L (11-82) 12/22/18 17:25 Urine Source CLEAN C 12/22/18 17:45 Urine Color YELLOW 12/22/18 17:45 Urine Clarity CLOUDY (CLEAR) H 12/22/18 17:45 Urine pH 6.0 (4.6 - 8.0) 12/22/18 17:45 Ur Specific [place] 1.020 (1.005-1.030) 12/22/18 17:45 Urine Protein 30 mg/dL (NEGATIVE) H 12/22/18 17:45 Urine Glucose (UA) NEGATIVE mg/dL (NEGATIVE) 12/22/18 17:45 Urine Ketones NEGATIVE mg/dL (NEGATIVE) 12/22/18 17:45 Urine Blood NEGATIVE (NEGATIVE) 12/22/18 17:45 Urine Nitrate POSITIVE (NEGATIVE) H 12/22/18 17:45 Urine Bilirubin NEGATIVE (NEGATIVE) 12/22/18 17:45 Urine Urobilinogen 0.2 E.U./dL (0.2 - 1.0) 12/22/18 17:45 Ur Leukocyte Esterase MODERATE (NEGATIVE) H 12/22/18 17:45 Urine RBC 0-2 /hpf (0-5) 12/22/18 17:45 Urine WBC 10-25 /hpf (0-5) H 12/22/18 17:45 Ur Epithelial Cells MODERATE /lpf (FEW) 12/22/18 17:45 Urine Bacteria MANY /hpf (NONE SEEN) H 12/22/18 17:45 - Physical Exam Vitals and I&O: Vital Signs Temp 97.5 F 12/23/18 08:00 Pulse 74 12/23/18 08:00 Resp 18 12/23/18 09:00 BP 107/42 12/23/18 08:00 Pulse Ox 96 12/23/18 08:00 Intake & Output 12/22/18 12/23/18 12/23/18 18:59 06:59 18:59 Intake Total 50 221.667 Balance 50 221.667 Weight (lbs) 65.771 kg 59.148 kg Intake: Intake, IV Amount 50 221.667 Cefepime 1 gm In Dextrose 50 5% 50 ml @ 100 mls/hr IV Q12H [facility] Rx#:[id number] Sodium Chloride 0.9% 1, 171.667 000 ml @ 100 mls/hr IV . Q10H [facility] Rx#:[id number] cefTRIAXone 1 gm In 50 Sodium Chloride 0.9% 50 ml @ 100 mls/hr IV X1 [facility] Rx#:[id number] Other: Weight Source Estimated Bedscale Active Medications: Current Medications Acetaminophen (Tylenol) 650 mg PO Q4H PRN PRN Reason: Pain Or Fever above 101 Stop: 02/20/19 19:11 Albuterol Sulfate (Albuterol 2.5mg/3ml Neb Ud) 2.5 mg HHN Q2HRT PRN PRN Reason: Shortness of Breath or Wheeze Stop: 02/20/19 19:09 Bupropion HCl (Wellbutrin Xl) 150 mg PO DAILY [facility]; Protocol Stop: 02/21/19 08:59 Last Admin: 12/23/18 08:55 Dose: 150 mg Buspirone HCl (Buspar) 2.5 mg PO BID [facility]; Protocol Stop: 02/21/19 08:59 Last Admin: 12/23/18 08:17 Dose: 2.5 mg Calcium/Vitamin D (Oscal W/Vitamin D) 1 tab PO BID [facility] Stop: 02/21/19 08:59 Last Admin: 12/23/18 08:17 Dose: 1 tab Ferrous Sulfate (Iron) 325 mg PO TID [facility] Stop: 02/20/19 20:59 Last Admin: 12/23/18 08:17 Dose: 325 mg Guaifenesin (Robitussin) 200 mg PO Q4HR PRN PRN Reason: Cough or Congestion Stop: 02/20/19 19:11 Cefepime HCl 1 gm/ Dextrose 50 mls @ 100 mls/hr IV Q12H [facility] Stop: 02/20/19 19:14 Last Admin: 12/23/18 06:22 Dose: 100 mls/hr Dextrose/Sodium Chloride (D5-0.9%Ns) 1,000 mls @ 80 mls/hr IV .[id number] [facility] Stop: 02/20/19 19:14 Last Admin: 12/22/18 20:12 Dose: 80 mls/hr Ipratropium [place] (Atrovent Neb 0.5mg/2.5ml) 0.5 mg HHN Q2HRT PRN PRN Reason: Shortness of Breath or Wheeze Stop: 02/20/19 19:09 Ondansetron HCl (Zofran) 4 mg IV Q8H PRN PRN Reason: Nausea / Vomiting Stop: 02/20/19 19:11 Pantoprazole Sodium (Protonix) 40 mg IVP BID [facility] Stop: 02/21/19 08:59 Last Admin: 12/23/18 08:17 Dose: 40 mg Polyethylene Glycol (Miralax) 17 gm PO DAILY [facility] Stop: 02/21/19 08:59 Last Admin: 12/23/18 08:17 Dose: 17 gm Zolpidem Tartrate (Ambien) 10 mg PO HS PRN PRN Reason: Insomnia Stop: 02/20/19 19:09 General: demented HEENT: NC/AT, PERRLA, EOMI Neck: Supple, No JVD Lungs: congested, rales Cardiovascular: RRR, Normal S1, Normal S2, with murmur Abdomen: soft, globular, non-distended, positive bowel sound Extremities: excoriation, contracture Neurological: no change - Procedures Procedures: Procedures Procedure Code Date EXCISION OF ESOPHAGUS, ENDO, DIAGN [id number] 06/27/18 EXCISION OF STOMACH, PYLORUS, ENDO, DIAGN [id number] 06/27/18 INTRODUCTION OF SERUM/TOX/VACCINE INTO MUSCLE, PERC APPROACH [id number] 12/28/16 Internal Medicine Assmt/Plan - Assessment Assessment: ASSESSMENT: Melena, possible gastrointestinal bleeding, anemia, hypokalemia, renal insufficiency/dehydration, moderate protein-calorie malnutrition, urinary tract infection, dementia, hypercholesterolemia, history of peptic ulcer disease/esophagitis. - Plan Plan: PLAN: Continue the patient on oxygen, bronchodilator treatment. Continue on IV hydration. We will progress CT of the abdomen and pelvis with oral contrast. We will refer the patient to GI. Continue the patient on IV proton pump inhibitor as well as antiemetic medications. We will monitor the patient closely in telemetry.
[2018-12-23] MEDS: D5-0.9%NS 1,000 ML IV SCH (12:25)
[2018-12-24] MEDS: D5-0.9%NS 1,000 ML IV SCH (01:00)
--- NOTE | 2018-12-24 07:56 | Consultation ---
DATE OF CONSULTATION: 12/23/2018 REQUESTING PHYSICIAN: Dr. German Patel. REASON FOR CONSULTATION: Blood in stool. HISTORY OF PRESENT ILLNESS: An 83-year-old female who is a senior care resident with underlying dementia, GERD, hypertension, hiatal hernia, hyperlipidemia and psychiatric disorder. She was brought in for blood in the stool/black stools noted by nursing staff at her nursing facility. Her hemoglobin here is in the 10 range. She has not required blood transfusion. She is on chronic iron at her facility. There has been no abdominal pain, nausea or vomiting. She does have chronic constipation. During her last admission here in June, she had an upper endoscopy that showed a hiatal hernia. A colonoscopy was last done in 2009 that may have shown some polyps. In June during her last admission, she had fecal impaction that resolved. She has chronic constipation. PAST MEDICAL HISTORY: As above. MEDICATIONS: Here are Tylenol p.r.n., albuterol, Wellbutrin, BuSpar, vitamin D with calcium, cefepime, iron orally 3 times a day, Robitussin, Atrovent, Zofran, Protonix 40 mg IV push b.i.d., MiraLax 17 grams daily, Ambien p.r.n. ALLERGIES: IODINE, DEMEROL and NIACIN. SOCIAL HISTORY: No recent tobacco, alcohol or drugs. FAMILY HISTORY: Noncontributory. REVIEW OF SYSTEMS: A comprehensive 12-point review of system was conducted and is only positive for those signs and symptoms present in the history of present illness. PHYSICAL EXAMINATION: VITAL SIGNS: Temperature of 97.5, blood pressure 107/42, pulse of 74, respirations 18, O2 sat 96% on room air. GENERAL: The patient is well-developed, well-nourished, chronically ill-appearing female, in no acute distress. HEENT: Sclerae nonicteric. Oropharynx is clear. CARDIOVASCULAR: Regular rate and rhythm. LUNGS: Clear to auscultation bilaterally. ABDOMEN: Soft, nontender, nondistended, normoactive bowel sounds. EXTREMITIES: No clubbing, cyanosis or edema. RECTAL: Deferred. LABORATORY DATA AND IMAGING: WBC 9, hemoglobin 10.2, MCV 92, and platelet count is 231. INR 0.88, sodium 139, creatinine is 1.8. Liver labs are normal. Albumin is 3.0. Amylase and lipase normal. IMPRESSION: 1. Black stools/blood in stools with possible hematochezia, rule out upper versus lower gastrointestinal source. Recent endoscopy 6 months ago was essentially unremarkable except for hiatal hernia. A colonoscopy last done 9-10 years ago may have shown polyps. Bleeding at this point does not appear to be brisk as there has not been any bloody stools noted in the hospital here. 2. Mild anemia, likely chronic, perhaps from gastrointestinal blood loss and/or anemia of chronic disease and/or chronic kidney disease. 3. History of dementia. 4. Gastroesophageal reflux disease and hiatal hernia. 5. Hypertension. 6. Hyperlipidemia. 7. Psychiatric disorder. RECOMMENDATIONS: 1. Monitor hemoglobin, transfuse as necessary. 2. Check KUB to rule out fecal impaction and give laxatives as present. 3. Continue iron supplementation. 4. Protonix. 5. No need to repeat endoscopy as it was just done 6 months ago and it was negative. 6. Consider colonoscopy in a couple of days' time with bowel preparation over 1-2 days if family is agreeable. I have discussed the case with the patient's son over the phone and at this point, he would defer the decision to his sister. We will discuss the case with the sister and if she is agreeable, then we will plan for colonoscopy in a couple of days. The procedure alternatively can also be done as an outpatient, which the son would prefer having done this way. Thank you, Dr. German Patel, for involving us in the care of your patient. If you have any further questions, please call us. JOB# [id number]
[2018-12-24 08:16] LABS: ANION GAP 9.6 (7.0-16.0); BUN - UREA NITROGEN 15 mg/dL (7-25); CALCIUM SERUM 9.7 mg/dL (8.6-10.3); CARBON DIOXIDE 22.4 mEq/L (21.0-31.0); CHLORIDE 108 mEq/L (98-107); GLUCOSE 105 mg/dL (70-105); SODIUM SERUM 136 mEq/L (136-145)
[2018-12-24] MEDS: POLYETHYLENE GLYCOL 3350 17 GM PACK PO SCH (08:30)
[2018-12-24] MEDS: Calcium Carb/Vit D 500 mg/200 U Tab PO SCH ×2 (08:31→16:15)
[2018-12-24] MEDS: buPROPion XL 150 mg T 24 H PO SCH (08:31)
[2018-12-24] MEDS: Ferrous Sulfate 325 MG TAB PO SCH ×3 (08:31→20:25)
--- NOTE | 2018-12-24 09:52 | Diagnostic Imaging Report ---
Exam: KUB of the abdomen. HISTORY: Constipation Findings: Portable supine examination of the abdomen at 1341 reviewed. The study demonstrates a nonspecific bowel gas pattern. There is no evidence for constipation. Degenerative changes lumbar spine. There is evidence of prior cholecystectomy. IMPRESSION nonspecific bowel gas pattern.
[2018-12-24 11:09] LABS: HEMOGLOBIN 9.8 gm/dL (12-16); MEAN CELL VOLUME 94.1 fl (81-100); MEAN CORPUSCULAR HEMOGLOBIN 30.5 pg (27.0-31.0); RED BLOOD COUNT 3.19 Mil/cmm (3.80-5.20); WHITE BLOOD COUNT 5.6 Th/cmm (4.8-10.8)
[2018-12-24 11:10] LABS: % BASOPHILS 0.8 % (0.0-2.0); % EOSINOPHILS 6.5 % (0.0-5.0); % MONOCYTES 10.2 % (2.0-10.0); % NEUTROPHILS 53.5 % (40.0-80.0); EOSINOPHILE ABSOLUTE 0.4 Th/cmm (0.1-0.4); LYMPHOCYTE ABSOLUTE 1.6 Th/cmm (1.5-3.0); MEAN CORPUSCULAR HGB CONC 32.5 pg (28.0-36.0); MONOCYTE ABSOLUTE 0.6 Th/cmm (0.3-1.0); PLATELET COUNT 202 Th/cmm (150-400); RED CELL DISTRIBUTION WIDTH 13.8 % (11.5-20.0)
--- NOTE | 2018-12-24 11:21 | Diagnostic Imaging Report ---
Exam: CT examination abdomen pelvis HISTORY: Bleeding Total DLP equals 546 CTDI equals 11.3 Findings Multiple contiguous thin section of the abdomen pelvis obtained from lower thorax to pubic symphysis without the administration of oral or intravenous contrast material, the study was correlated with the prior exam 06/26/2018 The study demonstrates normal aeration of the lung parenchyma the bases The liver and spleen are intact. There is evidence of previous cholecystectomy. Extensive vascular calcifications are noted. The kidneys demonstrate right-sided hydronephrosis. The pancreas is intact. Small amount of residual contrast is noted in the stomach. No free fluid is noted. Large amount of fecal content in the rectosigmoid junction with fecal impaction the rectum. There is no evidence of diverticular disease of diverticulitis. Incidentally noted mild spinal stenosis lower lumbar spine. 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 Right rectus muscle atrophy. IMPRESSION: Mild right-sided hydronephrosis, clinical correlation recommended Status post cholecystectomy Extensive vascular calcifications Fecal impaction the rectum.
--- NOTE | 2018-12-24 12:18 | GI Progress Note ---
Subjective - Review of Systems Service Date: 12/24/18 Subjective: GI NOTE No overt GI bleeding here. Tolerating oral diet. GI OBJECTIVE - Results Result Diagrams: 12/24/18 07:54 12/24/18 07:54 Recent Labs: Laboratory Last Values WBC 5.6 Th/cmm (4.8-10.8) 12/24/18 07:54 RBC 3.19 Mil/cmm (3.80-5.20) L 12/24/18 07:54 Hgb 9.8 gm/dL (12-16) L 12/24/18 07:54 Hct 30.0 % (41.0-60) L 12/24/18 07:54 MCV 94.1 fl (81-100) 12/24/18 07:54 MCH 30.5 pg (27.0-31.0) 12/24/18 07:54 MCHC Differential 32.5 pg (28.0-36.0) 12/24/18 07:54 RDW 13.8 % (11.5-20.0) 12/24/18 07:54 Plt Count 202 Th/cmm (150-400) 12/24/18 07:54 MPV 11.6 fl 12/24/18 07:54 Neutrophils % 53.5 % (40.0-80.0) 12/24/18 07:54 Lymphocytes % 29.0 % (20.0-50.0) 12/24/18 07:54 Monocytes % 10.2 % (2.0-10.0) H 12/24/18 07:54 Eosinophils % 6.5 % (0.0-5.0) H 12/24/18 07:54 Basophils % 0.8 % (0.0-2.0) 12/24/18 07:54 PT 9.3 SECONDS (9.5-11.5) L 12/22/18 17:25 INR 0.88 (0.5-1.4) 12/22/18 17:25 Sodium 136 mEq/L (136-145) 12/24/18 07:54 Potassium 4.0 mEq/L (3.5-5.1) 12/24/18 07:54 Chloride 108 mEq/L (98-107) H 12/24/18 07:54 Carbon Dioxide 22.4 mEq/L (21.0-31.0) 12/24/18 07:54 Anion Gap 9.6 (7.0-16.0) 12/24/18 07:54 BUN 15 mg/dL (7-25) 12/24/18 07:54 Creatinine 1.0 mg/dL (0.6-1.2) 12/24/18 07:54 Est GFR ( Amer) TNP 12/24/18 07:54 Est GFR (Non-Af Amer) TNP 12/24/18 07:54 BUN/Creatinine Ratio 15.0 12/24/18 07:54 Glucose 105 mg/dL (70-105) 12/24/18 07:54 Calcium 9.7 mg/dL (8.6-10.3) 12/24/18 07:54 Total Bilirubin 0.2 mg/dL (0.3-1.0) L 12/22/18 17:25 AST 10 U/L (13-39) L 12/22/18 17:25 ALT 7 U/L (7-52) 12/22/18 17:25 Alkaline Phosphatase 102 U/L (34-104) 12/22/18 17:25 Ammonia 77 umol/L (16-53) H 12/24/18 07:54 Creatine Kinase 86 U/L (30-223) 12/22/18 17:25 Troponin I 0.02 ng/mL (0.01-0.05) 12/22/18 17:25 B-Natriuretic Peptide 734.0 pg/mL (5.0-100.0) H 12/24/18 06:00 Total Protein 5.5 gm/dL (6.0-8.3) L 12/22/18 17:25 Albumin 3.0 gm/dL (3.7-5.3) L 12/22/18 17:25 Globulin 2.5 gm/dL 12/22/18 17:25 Albumin/Globulin Ratio 1.2 (1.0-1.8) 12/22/18 17:25 Triglycerides < 10 mg/dL (<150) 12/22/18 17:25 Cholesterol 153 mg/dL (<200) 12/22/18 17:25 LDL Cholesterol Direct 89 mg/dL (75-193) 12/22/18 17:25 HDL Cholesterol 41 mg/dL (23-92) 12/22/18 17:25 Amylase 43 U/L (29-103) 12/22/18 17:25 Lipase 24 U/L (11-82) 12/22/18 17:25 TSH 1.69 uIU/ml (0.34-5.60) 12/24/18 07:54 Urine Source CLEAN C 12/22/18 17:45 Urine Color YELLOW 12/22/18 17:45 Urine Clarity CLOUDY (CLEAR) H 12/22/18 17:45 Urine pH 6.0 (4.6 - 8.0) 12/22/18 17:45 Ur Specific [place] 1.020 (1.005-1.030) 12/22/18 17:45 Urine Protein 30 mg/dL (NEGATIVE) H 12/22/18 17:45 Urine Glucose (UA) NEGATIVE mg/dL (NEGATIVE) 12/22/18 17:45 Urine Ketones NEGATIVE mg/dL (NEGATIVE) 12/22/18 17:45 Urine Blood NEGATIVE (NEGATIVE) 12/22/18 17:45 Urine Nitrate POSITIVE (NEGATIVE) H 12/22/18 17:45 Urine Bilirubin NEGATIVE (NEGATIVE) 12/22/18 17:45 Urine Urobilinogen 0.2 E.U./dL (0.2 - 1.0) 12/22/18 17:45 Ur Leukocyte Esterase MODERATE (NEGATIVE) H 12/22/18 17:45 Urine RBC 0-2 /hpf (0-5) 12/22/18 17:45 Urine WBC 10-25 /hpf (0-5) H 12/22/18 17:45 Ur Epithelial Cells MODERATE /lpf (FEW) 12/22/18 17:45 Urine Bacteria MANY /hpf (NONE SEEN) H 12/22/18 17:45 - Physical Exam Vitals and I&O: Vital Signs Temp 96.8 F 12/24/18 11:29 Pulse 69 12/24/18 11:29 Resp 19 12/24/18 11:29 BP 154/58 12/24/18 11:29 Pulse Ox 97 12/24/18 11:29 Intake & Output 12/23/18 12/24/18 12/24/18 18:59 06:59 18:59 Intake Total 1850 1250 Balance 1850 1250 Weight (lbs) 59.874 kg 59.874 kg 59.874 kg Intake: Intake, IV Amount 1050 1050 Cefepime 1 gm In Dextrose 50 50 5% 50 ml @ 100 mls/hr IV Q12H [facility] Rx#:[id number] D5-0.9%Ns 1,000 ml @ 80 1000 1000 mls/hr IV .[id number] [facility] Rx #:[id number] Oral 800 200 Other: # Voids 5 4 1 # Bowel Movements 0 0 Weight Source Bedscale Bedscale Bedscale Active Medications: Current Medications Acetaminophen (Tylenol) 650 mg PO Q4H PRN PRN Reason: Pain Or Fever above 101 Stop: 02/20/19 19:11 Albuterol Sulfate (Albuterol 2.5mg/3ml Neb Ud) 2.5 mg HHN Q2HRT PRN PRN Reason: Shortness of Breath or Wheeze Stop: 02/20/19 19:09 Bupropion HCl (Wellbutrin Xl) [address] [facility]; Protocol Stop: 02/21/19 08:59 Last Admin: 12/24/18 08:31 Dose: 150 mg Buspirone HCl (Buspar) 2.[address] [facility]; Protocol Stop: 02/21/19 08:59 Last Admin: 12/24/18 08:30 Dose: 2.5 mg Calcium/Vitamin D (Oscal W/Vitamin D) [address] [facility] Stop: 02/21/19 08:59 Last Admin: 12/24/18 08:31 Dose: 1 tab Ferrous Sulfate (Iron) [address] [facility] Stop: 02/20/19 20:59 Last Admin: 12/24/18 08:31 Dose: 325 mg Guaifenesin (Robitussin) 200 mg PO Q4HR PRN PRN Reason: Cough or Congestion Stop: 02/20/19 19:11 Cefepime HCl 1 gm/ Dextrose 50 mls @ 100 mls/hr IV Q12H [facility] Stop: 02/20/19 19:14 Last Infusion: 12/24/18 06:55 Dose: Infused Dextrose/Sodium Chloride (D5-0.9%Ns) 1,000 mls @ 80 mls/hr IV .[id number] [facility] Stop: 02/20/19 19:14 Last Admin: 12/24/18 01:00 Dose: 80 mls/hr Ipratropium [place] (Atrovent Neb 0.5mg/2.5ml) 0.5 mg HHN Q2HRT PRN PRN Reason: Shortness of Breath or Wheeze Stop: 02/20/19 19:09 Ondansetron HCl (Zofran) 4 mg IV Q8H PRN PRN Reason: Nausea / Vomiting Stop: 02/20/19 19:11 Pantoprazole Sodium (Protonix) 40 mg IVP BID [facility] Stop: 02/21/19 08:59 Last Admin: 12/24/18 08:30 Dose: 40 mg Polyethylene Glycol (Miralax) 17 gm PO DAILY [facility] Stop: 02/21/19 08:59 Last Admin: 12/24/18 08:30 Dose: 17 gm Zolpidem Tartrate (Ambien) 10 mg PO HS PRN PRN Reason: Insomnia Stop: 02/20/19 19:09 General: No acute distress Cardiovascular: Regular rate Lungs: Clear to auscultation Abdomen: Bowel sounds, Soft, no Tender - Procedures Procedures: Procedures Procedure Code Date EXCISION OF ESOPHAGUS, ENDO, DIAGN [id number] 06/27/18 EXCISION OF STOMACH, PYLORUS, ENDO, DIAGN [id number] 06/27/18 INTRODUCTION OF SERUM/TOX/VACCINE INTO MUSCLE, PERC APPROACH 3T3853L 12/28/16 Assessment/Plan - Assessment Assessment: IMPRESSION: 1. GI bleed - melena/hematochezia - rule out lower > upper GI source. EGD 6 mo ago = hiatal hernia. Last colonoscopy 9-10 yrs ago per family. 2. Mild anemia. 3. Mild dementia. 4. Hx GERD. RECS: 1. Monitor Hgb. 2. Family undecided regarding colonoscopy - can plan for early next week if they agree. It does not seem urgent, and can even be done as outpatient. 3. Protonix. 4. Oral diet as tolerated.
--- NOTE | 2018-12-24 12:22 | Internal Medicine Prog Note ---
Internal Medicine Subjective - Subjective Patient seen and examined:: with staff, chart reviewed Patient is:: awake, verbal, interactive, confused Patient Complaints of:: congestion Per staff patient has:: no adverse event, no episodes of fall, confused, tolerating meds Internal Medicine Objective - Results Result Diagrams: 12/24/18 07:54 12/24/18 07:54 Recent Labs: Laboratory Last Values WBC 5.6 Th/cmm (4.8-10.8) 12/24/18 07:54 RBC 3.19 Mil/cmm (3.80-5.20) L 12/24/18 07:54 Hgb 9.8 gm/dL (12-16) L 12/24/18 07:54 Hct 30.0 % (41.0-60) L 12/24/18 07:54 MCV 94.1 fl (81-100) 12/24/18 07:54 MCH 30.5 pg (27.0-31.0) 12/24/18 07:54 MCHC Differential 32.5 pg (28.0-36.0) 12/24/18 07:54 RDW 13.8 % (11.5-20.0) 12/24/18 07:54 Plt Count 202 Th/cmm (150-400) 12/24/18 07:54 MPV 11.6 fl 12/24/18 07:54 Neutrophils % 53.5 % (40.0-80.0) 12/24/18 07:54 Lymphocytes % 29.0 % (20.0-50.0) 12/24/18 07:54 Monocytes % 10.2 % (2.0-10.0) H 12/24/18 07:54 Eosinophils % 6.5 % (0.0-5.0) H 12/24/18 07:54 Basophils % 0.8 % (0.0-2.0) 12/24/18 07:54 PT 9.3 SECONDS (9.5-11.5) L 12/22/18 17:25 INR 0.88 (0.5-1.4) 12/22/18 17:25 Sodium 136 mEq/L (136-145) 12/24/18 07:54 Potassium 4.0 mEq/L (3.5-5.1) 12/24/18 07:54 Chloride 108 mEq/L (98-107) H 12/24/18 07:54 Carbon Dioxide 22.4 mEq/L (21.0-31.0) 12/24/18 07:54 Anion Gap 9.6 (7.0-16.0) 12/24/18 07:54 BUN 15 mg/dL (7-25) 12/24/18 07:54 Creatinine 1.0 mg/dL (0.6-1.2) 12/24/18 07:54 Est GFR ( Amer) TNP 12/24/18 07:54 Est GFR (Non-Af Amer) TNP 12/24/18 07:54 BUN/Creatinine Ratio 15.0 12/24/18 07:54 Glucose 105 mg/dL (70-105) 12/24/18 07:54 Calcium 9.7 mg/dL (8.6-10.3) 12/24/18 07:54 Total Bilirubin 0.2 mg/dL (0.3-1.0) L 12/22/18 17:25 AST 10 U/L (13-39) L 12/22/18 17:25 ALT 7 U/L (7-52) 12/22/18 17:25 Alkaline Phosphatase 102 U/L (34-104) 12/22/18 17:25 Ammonia 77 umol/L (16-53) H 12/24/18 07:54 Creatine Kinase 86 U/L (30-223) 12/22/18 17:25 Troponin I 0.02 ng/mL (0.01-0.05) 12/22/18 17:25 B-Natriuretic Peptide 734.0 pg/mL (5.0-100.0) H 12/24/18 06:00 Total Protein 5.5 gm/dL (6.0-8.3) L 12/22/18 17:25 Albumin 3.0 gm/dL (3.7-5.3) L 12/22/18 17:25 Globulin 2.5 gm/dL 12/22/18 17:25 Albumin/Globulin Ratio 1.2 (1.0-1.8) 12/22/18 17:25 Triglycerides < 10 mg/dL (<150) 12/22/18 17:25 Cholesterol 153 mg/dL (<200) 12/22/18 17:25 LDL Cholesterol Direct 89 mg/dL (75-193) 12/22/18 17:25 HDL Cholesterol 41 mg/dL (23-92) 12/22/18 17:25 Amylase 43 U/L (29-103) 12/22/18 17:25 Lipase 24 U/L (11-82) 12/22/18 17:25 TSH 1.69 uIU/ml (0.34-5.60) 12/24/18 07:54 Urine Source CLEAN C 12/22/18 17:45 Urine Color YELLOW 12/22/18 17:45 Urine Clarity CLOUDY (CLEAR) H 12/22/18 17:45 Urine pH 6.0 (4.6 - 8.0) 12/22/18 17:45 Ur Specific [place] 1.020 (1.005-1.030) 12/22/18 17:45 Urine Protein 30 mg/dL (NEGATIVE) H 12/22/18 17:45 Urine Glucose (UA) NEGATIVE mg/dL (NEGATIVE) 12/22/18 17:45 Urine Ketones NEGATIVE mg/dL (NEGATIVE) 12/22/18 17:45 Urine Blood NEGATIVE (NEGATIVE) 12/22/18 17:45 Urine Nitrate POSITIVE (NEGATIVE) H 12/22/18 17:45 Urine Bilirubin NEGATIVE (NEGATIVE) 12/22/18 17:45 Urine Urobilinogen 0.2 E.U./dL (0.2 - 1.0) 12/22/18 17:45 Ur Leukocyte Esterase MODERATE (NEGATIVE) H 12/22/18 17:45 Urine RBC 0-2 /hpf (0-5) 12/22/18 17:45 Urine WBC 10-25 /hpf (0-5) H 12/22/18 17:45 Ur Epithelial Cells MODERATE /lpf (FEW) 12/22/18 17:45 Urine Bacteria MANY /hpf (NONE SEEN) H 12/22/18 17:45 - Physical Exam Vitals and I&O: Vital Signs Temp 96.8 F 12/24/18 11:29 Pulse 69 12/24/18 11:29 Resp 19 12/24/18 11:29 BP 154/58 12/24/18 11:29 Pulse Ox 97 12/24/18 11:29 Intake & Output 12/23/18 12/24/18 12/24/18 18:59 06:59 18:59 Intake Total 1850 1250 Balance 1850 1250 Weight (lbs) 59.874 kg 59.874 kg 59.874 kg Intake: Intake, IV Amount 1050 1050 Cefepime 1 gm In Dextrose 50 50 5% 50 ml @ 100 mls/hr IV Q12H [facility] Rx#:[id number] D5-0.9%Ns 1,000 ml @ 80 1000 1000 mls/hr IV .[id number] [facility] Rx #:[id number] Oral 800 200 Other: # Voids 5 4 1 # Bowel Movements 0 0 Weight Source Bedscale Bedscale Bedscale Active Medications: Current Medications Acetaminophen (Tylenol) 650 mg PO Q4H PRN PRN Reason: Pain Or Fever above 101 Stop: 02/20/19 19:11 Albuterol Sulfate (Albuterol 2.5mg/3ml Neb Ud) 2.5 mg HHN Q2HRT PRN PRN Reason: Shortness of Breath or Wheeze Stop: 02/20/19 19:09 Bupropion HCl (Wellbutrin Xl) 150 mg PO DAILY [facility]; Protocol Stop: 02/21/19 08:59 Last Admin: 12/24/18 08:31 Dose: 150 mg Buspirone HCl (Buspar) 2.5 mg PO BID [facility]; Protocol Stop: 02/21/19 08:59 Last Admin: 12/24/18 08:30 Dose: 2.5 mg Calcium/Vitamin D (Oscal W/Vitamin D) 1 tab PO BID [facility] Stop: 02/21/19 08:59 Last Admin: 12/24/18 08:31 Dose: 1 tab Ferrous Sulfate (Iron) 325 mg PO TID [facility] Stop: 02/20/19 20:59 Last Admin: 12/24/18 08:31 Dose: 325 mg Guaifenesin (Robitussin) 200 mg PO Q4HR PRN PRN Reason: Cough or Congestion Stop: 02/20/19 19:11 Cefepime HCl 1 gm/ Dextrose 50 mls @ 100 mls/hr IV Q12H [facility] Stop: 02/20/19 19:14 Last Infusion: 12/24/18 06:55 Dose: Infused Ipratropium [place] (Atrovent Neb 0.5mg/2.5ml) 0.5 mg HHN Q2HRT PRN PRN Reason: Shortness of Breath or Wheeze Stop: 02/20/19 19:09 Ondansetron HCl (Zofran) 4 mg IV Q8H PRN PRN Reason: Nausea / Vomiting Stop: 02/20/19 19:11 Pantoprazole Sodium (Protonix) 40 mg IVP BID [facility] Stop: 02/21/19 08:59 Last Admin: 12/24/18 08:30 Dose: 40 mg Polyethylene Glycol (Miralax) 17 gm PO DAILY [facility] Stop: 02/21/19 08:59 Last Admin: 12/24/18 08:30 Dose: 17 gm Zolpidem Tartrate (Ambien) 10 mg PO HS PRN PRN Reason: Insomnia Stop: 02/20/19 19:09 General: demented HEENT: NC/AT, PERRLA, EOMI Neck: Supple, No JVD Lungs: congested, rales Cardiovascular: RRR, Normal S1, Normal S2, with murmur Abdomen: soft, globular, non-distended, positive bowel sound Extremities: excoriation, contracture Neurological: no change - Procedures Procedures: Procedures Procedure Code Date EXCISION OF ESOPHAGUS, ENDO, DIAGN [id number] 06/27/18 EXCISION OF STOMACH, PYLORUS, ENDO, DIAGN [id number] 06/27/18 INTRODUCTION OF SERUM/TOX/VACCINE INTO MUSCLE, PERC APPROACH 3P4465C 12/28/16 Internal Medicine Assmt/Plan - Assessment Assessment: ASSESSMENT: Melena, possible gastrointestinal bleeding, anemia, hypokalemia, renal insufficiency/dehydration, moderate protein-calorie malnutrition, urinary tract infection, dementia, hypercholesterolemia, history of peptic ulcer disease/esophagitis. - Plan Plan: PLAN: Continue the patient on oxygen, bronchodilator treatment. Continue on IV hydration. We will progress CT of the abdomen and pelvis with oral contrast. We will refer the patient to GI. Continue the patient on IV proton pump inhibitor as well as antiemetic medications. We will monitor the patient closely in telemetry.
[2018-12-24] MEDS: D5-0.45NS 1,000 ML IV SCH (12:39)
[2018-12-25 05:15] LABS: ANION GAP 9.7 (7.0-16.0); BUN - UREA NITROGEN 14 mg/dL (7-25); CALCIUM SERUM 10.1 mg/dL (8.6-10.3); CARBON DIOXIDE 26.6 mEq/L (21.0-31.0); CHLORIDE 107 mEq/L (98-107); CREATININE - SERUM 1.1 mg/dL (0.6-1.2); GLUCOSE 97 mg/dL (70-105); POTASSIUM SERUM 4.3 mEq/L (3.5-5.1); SODIUM SERUM 139 mEq/L (136-145)
--- NOTE | 2018-12-25 08:10 | GI Progress Note ---
Subjective - Review of Systems Service Date: 12/25/18 Subjective: No overnight events. [place] diet GI OBJECTIVE - Results Result Diagrams: 12/24/18 07:54 12/25/18 04:25 Recent Labs: Laboratory Last Values WBC 5.6 Th/cmm (4.8-10.8) 12/24/18 07:54 RBC 3.19 Mil/cmm (3.80-5.20) L 12/24/18 07:54 Hgb 9.8 gm/dL (12-16) L 12/24/18 07:54 Hct 30.0 % (41.0-60) L 12/24/18 07:54 MCV 94.1 fl (81-100) 12/24/18 07:54 MCH 30.5 pg (27.0-31.0) 12/24/18 07:54 MCHC Differential 32.5 pg (28.0-36.0) 12/24/18 07:54 RDW 13.8 % (11.5-20.0) 12/24/18 07:54 Plt Count 202 Th/cmm (150-400) 12/24/18 07:54 MPV 11.6 fl 12/24/18 07:54 Neutrophils % 53.5 % (40.0-80.0) 12/24/18 07:54 Lymphocytes % 29.0 % (20.0-50.0) 12/24/18 07:54 Monocytes % 10.2 % (2.0-10.0) H 12/24/18 07:54 Eosinophils % 6.5 % (0.0-5.0) H 12/24/18 07:54 Basophils % 0.8 % (0.0-2.0) 12/24/18 07:54 PT 9.3 SECONDS (9.5-11.5) L 12/22/18 17:25 INR 0.88 (0.5-1.4) 12/22/18 17:25 Sodium 139 mEq/L (136-145) 12/25/18 04:25 Potassium 4.3 mEq/L (3.5-5.1) 12/25/18 04:25 Chloride 107 mEq/L (98-107) 12/25/18 04:25 Carbon Dioxide 26.6 mEq/L (21.0-31.0) 12/25/18 04:25 Anion Gap 9.7 (7.0-16.0) 12/25/18 04:25 BUN 14 mg/dL (7-25) 12/25/18 04:25 Creatinine 1.1 mg/dL (0.6-1.2) 12/25/18 04:25 Est GFR ( Amer) TNP 12/25/18 04:25 Est GFR (Non-Af Amer) TNP 12/25/18 04:25 BUN/Creatinine Ratio 12.7 12/25/18 04:25 Glucose 97 mg/dL (70-105) 12/25/18 04:25 Calcium 10.1 mg/dL (8.6-10.3) 12/25/18 04:25 Magnesium 2.0 mg/dL (1.9-2.7) 12/25/18 04:25 Total Bilirubin 0.2 mg/dL (0.3-1.0) L 12/22/18 17:25 AST 10 U/L (13-39) L 12/22/18 17:25 ALT 7 U/L (7-52) 12/22/18 17:25 Alkaline Phosphatase 102 U/L (34-104) 12/22/18 17:25 Ammonia 38 umol/L (16-53) 12/25/18 04:25 Creatine Kinase 86 U/L (30-223) 12/22/18 17:25 Troponin I 0.02 ng/mL (0.01-0.05) 12/22/18 17:25 B-Natriuretic Peptide 734.0 pg/mL (5.0-100.0) H 12/24/18 06:00 Total Protein 5.5 gm/dL (6.0-8.3) L 12/22/18 17:25 Albumin 3.0 gm/dL (3.7-5.3) L 12/22/18 17:25 Globulin 2.5 gm/dL 12/22/18 17:25 Albumin/Globulin Ratio 1.2 (1.0-1.8) 12/22/18 17:25 Triglycerides < 10 mg/dL (<150) 12/22/18 17:25 Cholesterol 153 mg/dL (<200) 12/22/18 17:25 LDL Cholesterol Direct 89 mg/dL (75-193) 12/22/18 17:25 HDL Cholesterol 41 mg/dL (23-92) 12/22/18 17:25 Amylase 43 U/L (29-103) 12/22/18 17:25 Lipase 24 U/L (11-82) 12/22/18 17:25 TSH 1.69 uIU/ml (0.34-5.60) 12/24/18 07:54 Urine Source CLEAN C 12/22/18 17:45 Urine Color YELLOW 12/22/18 17:45 Urine Clarity CLOUDY (CLEAR) H 12/22/18 17:45 Urine pH 6.0 (4.6 - 8.0) 12/22/18 17:45 Ur Specific [place] 1.020 (1.005-1.030) 12/22/18 17:45 Urine Protein 30 mg/dL (NEGATIVE) H 12/22/18 17:45 Urine Glucose (UA) NEGATIVE mg/dL (NEGATIVE) 12/22/18 17:45 Urine Ketones NEGATIVE mg/dL (NEGATIVE) 12/22/18 17:45 Urine Blood NEGATIVE (NEGATIVE) 12/22/18 17:45 Urine Nitrate POSITIVE (NEGATIVE) H 12/22/18 17:45 Urine Bilirubin NEGATIVE (NEGATIVE) 12/22/18 17:45 Urine Urobilinogen 0.2 E.U./dL (0.2 - 1.0) 12/22/18 17:45 Ur Leukocyte Esterase MODERATE (NEGATIVE) H 12/22/18 17:45 Urine RBC 0-2 /hpf (0-5) 12/22/18 17:45 Urine WBC 10-25 /hpf (0-5) H 12/22/18 17:45 Ur Epithelial Cells MODERATE /lpf (FEW) 12/22/18 17:45 Urine Bacteria MANY /hpf (NONE SEEN) H 12/22/18 17:45 - Physical Exam Vitals and I&O: Vital Signs Temp 97.7 F 12/25/18 04:00 Pulse 75 12/25/18 04:00 Resp 18 12/25/18 04:00 BP 142/73 12/25/18 04:00 Pulse Ox 99 12/25/18 04:00 Intake & Output 12/24/18 12/25/18 12/25/18 18:59 06:59 18:59 Intake Total 1050 50 Balance 1050 50 Weight (lbs) 59.874 kg 59.874 kg Intake: Intake, IV Amount 1050 Cefepime 1 gm In Dextrose 50 5% 50 ml @ 100 mls/hr IV Q12H [facility] Rx#:[id number] D5-0.9%Ns 1,000 ml @ 80 1000 mls/hr IV .[id number] [facility] Rx #:[id number] Oral 50 Other: # Voids 1 4 # Bowel Movements 0 Weight Source Bedscale Bedscale Active Medications: Current Medications Acetaminophen (Tylenol) 650 mg PO Q4H PRN PRN Reason: Pain Or Fever above 101 Stop: 02/20/19 19:11 Last Admin: 12/24/18 13:45 Dose: 650 mg Albuterol Sulfate (Albuterol 2.5mg/3ml Neb Ud) 2.5 mg HHN Q2HRT PRN PRN Reason: Shortness of Breath or Wheeze Stop: 02/20/19 19:09 Bupropion HCl (Wellbutrin Xl) 150 mg PO DAILY [facility]; Protocol Stop: 02/21/19 08:59 Last Admin: 12/24/18 08:31 Dose: 150 mg Buspirone HCl (Buspar) 2.5 mg PO BID [facility]; Protocol Stop: 02/21/19 08:59 Last Admin: 12/24/18 16:15 Dose: 2.5 mg Calcium/Vitamin D (Oscal W/Vitamin D) 1 tab PO BID [facility] Stop: 02/21/19 08:59 Last Admin: 12/24/18 16:15 Dose: 1 tab Ferrous Sulfate (Iron) 325 mg PO TID [facility] Stop: 02/20/19 20:59 Last Admin: 12/24/18 20:25 Dose: 325 mg Guaifenesin (Robitussin) 200 mg PO Q4HR PRN PRN Reason: Cough or Congestion Stop: 02/20/19 19:11 Cefepime HCl 1 gm/ Dextrose 50 mls @ 100 mls/hr IV Q12H [facility] Stop: 02/20/19 19:14 Last Admin: 12/25/18 06:25 Dose: 100 mls/hr Dextrose/Sodium Chloride (D5-0.45ns) 1,000 mls @ 50 mls/hr IV .Q20H [facility] Stop: 02/22/19 12:29 Last Admin: 12/24/18 12:39 Dose: 50 mls/hr Ipratropium [place] (Atrovent Neb 0.5mg/2.5ml) 0.5 mg HHN Q2HRT PRN PRN Reason: Shortness of Breath or Wheeze Stop: 02/20/19 19:09 Ondansetron HCl (Zofran) 4 mg IV Q8H PRN PRN Reason: Nausea / Vomiting Stop: 02/20/19 19:11 Pantoprazole Sodium (Protonix) 40 mg IVP BID [facility] Stop: 02/21/19 08:59 Last Admin: 12/24/18 16:15 Dose: 40 mg Polyethylene Glycol (Miralax) 17 gm PO DAILY HANNA Stop: 02/21/19 08:59 Last Admin: 12/24/18 08:30 Dose: 17 gm Zolpidem Tartrate (Ambien) 10 mg PO HS PRN PRN Reason: Insomnia Stop: 02/20/19 19:09 Last Admin: 12/24/18 20:25 Dose: 10 mg General: Alert HEENT: Atraumatic Neck: Supple Abdomen: Bowel sounds, Soft, no Tender, no Hepatomegaly, no Splenomegaly, no Distended, no Rebound, no Mass Extremities: no Clubbing Psych/Mental Status: no Mental status NL - Procedures Procedures: Procedures Procedure Code Date EXCISION OF ESOPHAGUS, ENDO, DIAGN [id number] 06/27/18 EXCISION OF STOMACH, PYLORUS, ENDO, DIAGN [id number] 06/27/18 INTRODUCTION OF SERUM/TOX/VACCINE INTO MUSCLE, PERC APPROACH [id number] 12/28/16 Assessment/Plan - Assessment Assessment: IMPRESSION: 1. GI bleed - melena/hematochezia - rule out lower > upper GI source. EGD 6 mo ago = hiatal hernia. Last colonoscopy 9-10 yrs ago per family. 2. Mild anemia. 3. Mild dementia. 4. Hx GERD. RECS: 1. Monitor Hgb. 2. Family undecided regarding colonoscopy. If the family consents, we can arrange for this to be done in the upcoming days. It does not seem urgent, and can even be done as outpatient. 3. Protonix. 4. Oral diet as tolerated.
[2018-12-25] MEDS: Ferrous Sulfate 325 MG TAB PO SCH ×3 (08:53→20:27)
[2018-12-25] MEDS: Calcium Carb/Vit D 500 mg/200 U Tab PO SCH ×2 (08:53→17:13)
[2018-12-25] MEDS: POLYETHYLENE GLYCOL 3350 17 GM PACK PO SCH (08:53)
[2018-12-25] MEDS: buPROPion XL 150 mg T 24 H PO SCH (08:55)
[2018-12-25] MEDS: D5-0.45NS 1,000 ML IV SCH (08:57)
[2018-12-25 10:22] LABS: HEMATOCRIT 29.7 % (41.0-60); HEMOGLOBIN 9.6 gm/dL (12-16); MEAN CELL VOLUME 94.5 fl (81-100); MEAN CORPUSCULAR HEMOGLOBIN 30.7 pg (27.0-31.0); MEAN CORPUSCULAR HGB CONC 32.5 pg (28.0-36.0); PLATELET COUNT 210 Th/cmm (150-400); RED BLOOD COUNT 3.14 Mil/cmm (3.80-5.20); RED CELL DISTRIBUTION WIDTH 13.4 % (11.5-20.0); WHITE BLOOD COUNT 5.3 Th/cmm (4.8-10.8)
[2018-12-25 10:23] LABS: % BASOPHILS 0.7 % (0.0-2.0); % EOSINOPHILS 10.4 % (0.0-5.0); % LYMPHOCYTES 44.7 % (20.0-50.0); % NEUTROPHILS 32.2 % (40.0-80.0)
--- NOTE | 2018-12-25 12:41 | Internal Medicine Prog Note ---
Internal Medicine Subjective - Subjective Patient seen and examined:: with staff, chart reviewed Patient is:: awake, verbal, interactive, confused Patient Complaints of:: congestion Per staff patient has:: no adverse event, no episodes of fall, confused, tolerating meds Internal Medicine Objective - Results Result Diagrams: 12/25/18 04:25 12/25/18 04:25 Recent Labs: Laboratory Last Values WBC 5.3 Th/cmm (4.8-10.8) 12/25/18 04:25 RBC 3.14 Mil/cmm (3.80-5.20) L 12/25/18 04:25 Hgb 9.6 gm/dL (12-16) L 12/25/18 04:25 Hct 29.7 % (41.0-60) L 12/25/18 04:25 MCV 94.5 fl (81-100) 12/25/18 04:25 MCH 30.7 pg (27.0-31.0) 12/25/18 04:25 MCHC Differential 32.5 pg (28.0-36.0) 12/25/18 04:25 RDW 13.4 % (11.5-20.0) 12/25/18 04:25 Plt Count 210 Th/cmm (150-400) 12/25/18 04:25 MPV 10.9 fl 12/25/18 04:25 Neutrophils % 32.2 % (40.0-80.0) L 12/25/18 04:25 Lymphocytes % 44.7 % (20.0-50.0) 12/25/18 04:25 Monocytes % 12.0 % (2.0-10.0) H 12/25/18 04:25 Eosinophils % 10.4 % (0.0-5.0) H 12/25/18 04:25 Basophils % 0.7 % (0.0-2.0) 12/25/18 04:25 PT 9.3 SECONDS (9.5-11.5) L 12/22/18 17:25 INR 0.88 (0.5-1.4) 12/22/18 17:25 Sodium 139 mEq/L (136-145) 12/25/18 04:25 Potassium 4.3 mEq/L (3.5-5.1) 12/25/18 04:25 Chloride 107 mEq/L (98-107) 12/25/18 04:25 Carbon Dioxide 26.6 mEq/L (21.0-31.0) 12/25/18 04:25 Anion Gap 9.7 (7.0-16.0) 12/25/18 04:25 BUN 14 mg/dL (7-25) 12/25/18 04:25 Creatinine 1.1 mg/dL (0.6-1.2) 12/25/18 04:25 Est GFR ( Amer) TNP 12/25/18 04:25 Est GFR (Non-Af Amer) TNP 12/25/18 04:25 BUN/Creatinine Ratio 12.7 12/25/18 04:25 Glucose 97 mg/dL (70-105) 12/25/18 04:25 Calcium 10.1 mg/dL (8.6-10.3) 12/25/18 04:25 Magnesium 2.0 mg/dL (1.9-2.7) 12/25/18 04:25 Total Bilirubin 0.2 mg/dL (0.3-1.0) L 12/22/18 17:25 AST 10 U/L (13-39) L 12/22/18 17:25 ALT 7 U/L (7-52) 12/22/18 17:25 Alkaline Phosphatase 102 U/L (34-104) 12/22/18 17:25 Ammonia 38 umol/L (16-53) 12/25/18 04:25 Creatine Kinase 86 U/L (30-223) 12/22/18 17:25 Troponin I 0.02 ng/mL (0.01-0.05) 12/22/18 17:25 B-Natriuretic Peptide 734.0 pg/mL (5.0-100.0) H 12/24/18 06:00 Total Protein 5.5 gm/dL (6.0-8.3) L 12/22/18 17:25 Albumin 3.0 gm/dL (3.7-5.3) L 12/22/18 17:25 Globulin 2.5 gm/dL 12/22/18 17:25 Albumin/Globulin Ratio 1.2 (1.0-1.8) 12/22/18 17:25 Triglycerides < 10 mg/dL (<150) 12/22/18 17:25 Cholesterol 153 mg/dL (<200) 12/22/18 17:25 LDL Cholesterol Direct 89 mg/dL (75-193) 12/22/18 17:25 HDL Cholesterol 41 mg/dL (23-92) 12/22/18 17:25 Amylase 43 U/L (29-103) 12/22/18 17:25 Lipase 24 U/L (11-82) 12/22/18 17:25 TSH 1.69 uIU/ml (0.34-5.60) 12/24/18 07:54 Urine Source CLEAN C 12/22/18 17:45 Urine Color YELLOW 12/22/18 17:45 Urine Clarity CLOUDY (CLEAR) H 12/22/18 17:45 Urine pH 6.0 (4.6 - 8.0) 12/22/18 17:45 Ur Specific [place] 1.020 (1.005-1.030) 12/22/18 17:45 Urine Protein 30 mg/dL (NEGATIVE) H 12/22/18 17:45 Urine Glucose (UA) NEGATIVE mg/dL (NEGATIVE) 12/22/18 17:45 Urine Ketones NEGATIVE mg/dL (NEGATIVE) 12/22/18 17:45 Urine Blood NEGATIVE (NEGATIVE) 12/22/18 17:45 Urine Nitrate POSITIVE (NEGATIVE) H 12/22/18 17:45 Urine Bilirubin NEGATIVE (NEGATIVE) 12/22/18 17:45 Urine Urobilinogen 0.2 E.U./dL (0.2 - 1.0) 12/22/18 17:45 Ur Leukocyte Esterase MODERATE (NEGATIVE) H 12/22/18 17:45 Urine RBC 0-2 /hpf (0-5) 12/22/18 17:45 Urine WBC 10-25 /hpf (0-5) H 12/22/18 17:45 Ur Epithelial Cells MODERATE /lpf (FEW) 12/22/18 17:45 Urine Bacteria MANY /hpf (NONE SEEN) H 12/22/18 17:45 - Physical Exam Vitals and I&O: Vital Signs Temp 98.3 F 12/25/18 12:00 Pulse 79 12/25/18 12:00 Resp 18 12/25/18 12:00 BP 146/54 12/25/18 12:00 Pulse Ox 98 12/25/18 12:00 Intake & Output 12/24/18 12/25/18 12/25/18 18:59 06:59 18:59 Intake Total 1050 50 1000 Balance 1050 50 1000 Weight (lbs) 59.874 kg 59.874 kg Intake: Intake, IV Amount 1050 1000 Cefepime 1 gm In Dextrose 50 5% 50 ml @ 100 mls/hr IV Q12H [facility] Rx#:[id number] D5-0.45NS 1,000 ml @ 50 1000 mls/hr IV .Q20H [facility] Rx#: [id number] D5-0.9%Ns 1,000 ml @ 80 1000 mls/hr IV .[id number] [facility] Rx #:[id number] Oral 50 Other: # Voids 1 4 # Bowel Movements 0 Weight Source Bedscale Bedscale Active Medications: Current Medications Acetaminophen (Tylenol) 650 mg PO Q4H PRN PRN Reason: Pain Or Fever above 101 Stop: 02/20/19 19:11 Last Admin: 12/24/18 13:45 Dose: 650 mg Albuterol Sulfate (Albuterol 2.5mg/3ml Neb Ud) 2.5 mg HHN Q2HRT PRN PRN Reason: Shortness of Breath or Wheeze Stop: 02/20/19 19:09 Bupropion HCl (Wellbutrin Xl) 150 mg PO DAILY [facility]; Protocol Stop: 02/21/19 08:59 Last Admin: 12/25/18 08:55 Dose: 150 mg Buspirone HCl (Buspar) 2.5 mg PO BID [facility]; Protocol Stop: 02/21/19 08:59 Last Admin: 12/25/18 08:53 Dose: 2.5 mg Calcium/Vitamin D (Oscal W/Vitamin D) 1 tab PO BID [facility] Stop: 02/21/19 08:59 Last Admin: 12/25/18 08:53 Dose: 1 tab Ferrous Sulfate (Iron) 325 mg PO TID [facility] Stop: 02/20/19 20:59 Last Admin: 12/25/18 08:53 Dose: 325 mg Guaifenesin (Robitussin) 200 mg PO Q4HR PRN PRN Reason: Cough or Congestion Stop: 02/20/19 19:11 Cefepime HCl 1 gm/ Dextrose 50 mls @ 100 mls/hr IV Q12H [facility] Stop: 02/20/19 19:14 Last Admin: 12/25/18 06:25 Dose: 100 mls/hr Dextrose/Sodium Chloride (D5-0.45ns) 1,000 mls @ 50 mls/hr IV .Q20H [facility] Stop: 02/22/19 12:29 Last Admin: 12/25/18 08:57 Dose: 50 mls/hr Ipratropium [place] (Atrovent Neb 0.5mg/2.5ml) 0.5 mg HHN Q2HRT PRN PRN Reason: Shortness of Breath or Wheeze Stop: 02/20/19 19:09 Ondansetron HCl (Zofran) 4 mg IV Q8H PRN PRN Reason: Nausea / Vomiting Stop: 02/20/19 19:11 Pantoprazole Sodium (Protonix) 40 mg IVP BID [facility] Stop: 02/21/19 08:59 Last Admin: 12/25/18 08:53 Dose: 40 mg Polyethylene Glycol (Miralax) 17 gm PO DAILY [facility] Stop: 02/21/19 08:59 Last Admin: 12/25/18 08:53 Dose: 17 gm Zolpidem Tartrate (Ambien) 10 mg PO HS PRN PRN Reason: Insomnia Stop: 02/20/19 19:09 Last Admin: 12/24/18 20:25 Dose: 10 mg General: demented HEENT: NC/AT, PERRLA, EOMI Neck: Supple, No JVD Lungs: congested, rales Cardiovascular: RRR, Normal S1, Normal S2, with murmur Abdomen: soft, globular, non-distended, positive bowel sound Extremities: excoriation, contracture Neurological: no change - Procedures Procedures: Procedures Procedure Code Date EXCISION OF ESOPHAGUS, ENDO, DIAGN [id number] 06/27/18 EXCISION OF STOMACH, PYLORUS, ENDO, DIAGN [id number] 06/27/18 INTRODUCTION OF SERUM/TOX/VACCINE INTO MUSCLE, PERC APPROACH [id number] 12/28/16 Internal Medicine Assmt/Plan - Assessment Assessment: ASSESSMENT: Melena, possible gastrointestinal bleeding, anemia, hypokalemia, renal insufficiency/dehydration, moderate protein-calorie malnutrition, urinary tract infection, dementia, hypercholesterolemia, history of peptic ulcer disease/esophagitis. - Plan Plan: PLAN: Continue the patient on oxygen, bronchodilator treatment. Continue on IV hydration. We will progress CT of the abdomen and pelvis with oral contrast. We will refer the patient to GI. Continue the patient on IV proton pump inhibitor as well as antiemetic medications. We will monitor the patient closely in telemetry.
[2018-12-26 05:39] LABS: INR 0.94 (0.5-1.4)
[2018-12-26] MEDS: D5-0.45NS 1,000 ML IV SCH (07:47)
[2018-12-26] MEDS ORDERED: Lidocaine 2% Gel 5 mL TP ONE ×2 (07:58)
[2018-12-26] MEDS ORDERED: Propofol 10 mg/mL 20mL Vial **SURGERY USE ONLY IV ONE (08:30)
--- NOTE | 2018-12-26 08:44 | Diagnostic Imaging Report ---
Portable chest x-ray HISTORY: Nasogastric tube placement, shortness of breath The heart size is generous. Atherosclerotic calcification seen in the aorta. No acute focal pulmonary parenchymal processes. A nasogastric tube extends into the region of the stomach. IMPRESSION: 1. No acute focal pulmonary processes 2. Generous heart size with atherosclerotic vascular changes 3. Nasogastric tube extending into the gastric area.
--- NOTE | 2018-12-26 09:26 | Operative Report ---
DATE OF SURGERY: 12/26/2018 INPATIENT COLONOSCOPY REPORT PROCEDURE PERFORMED: Colonoscopy with biopsy. ENDOSCOPIST: Abhi Whittaker MD. PREOPERATIVE DIAGNOSES: Hematochezia and anemia. POSTOPERATIVE DIAGNOSES: Diverticulosis, rectal ulcer, hemorrhoids. INDICATIONS: The patient is an 83-year-old female with history of dementia, hiatal hernia who was admitted to the hospital with sepsis, but also found to have hematochezia. She has had an EGD less than a year ago that showed a hiatal hernia, but has not had a colonoscopy since 2009 and thus she is here today to have a colonoscopy exam. CONSENT: Informed consent was obtained from the patient's son. The risks and benefits of the procedure were discussed including but not limited to infection, bleeding, perforation, need for surgery, cardiopulmonary complications, missed pathology and . The patient's son indicated her understanding of these risks and wished to go forward with the procedure and signed the consent form. ANESTHESIA: The procedure was done in the operating room under the care of an anesthesiologist providing propofol for sedation. PROCEDURE IN DETAIL: The patient was hooked up to the appropriate monitoring devices including blood pressure, pulse, pulse oximetry, and IV was in place. Oxygen was delivered via nasal cannula throughout the procedure. IV sedating medication was given by the anesthesiologist. The patient was in the left lateral decubitus position. A rectal exam was performed. The colonoscope introduced into the anus and guided under direct visualization to the level of the cecum, which was confirmed by the presence of the appendiceal orifice and IC valve, which were photographed. The scope was slowly and carefully withdrawn, making sure to examine the entire mucosa in careful and systematic fashion. Retroflexion was performed in the rectum prior to scope straightening and withdrawal from the body. There was no obvious sign of complication at the end of the procedure. FINDINGS: The [place] bowel prep score was 2 in all segments of the colon. There were some areas of solid stool that could not be suctioned with the scope and thus polyps less than 5 mm in size may have been missed in these areas. However, there were no mass lesions found on this examination. There was [id number] diverticulosis throughout the colon that was not actively bleeding. There were no other polyps found. In the rectum, there was a semi-circumferential area of ulceration. This had the endoscopic appearance, likely of a stercoral ulcer, likely due to fecal impaction and constipation. Nevertheless, the area was biopsied to ensure that there was no occult malignancy here. On retroflex view in the rectum, there were also moderate internal hemorrhoids. IMPRESSION: 1. Moderate diverticulosis throughout the colon. 2. Likely stercoral rectal ulcer due to constipation. 3. Hemorrhoids. RECOMMENDATIONS: 1. Avoid constipation and fecal impaction as this is the treatment for this type of ulceration. 2. We will follow up with biopsy results to ensure no occult malignancy. 3. I do not recommend any further surveillance colonoscopy given the patient's age. 4. We will restart the diet and advance as tolerated. Thank you for allowing me to participate in her care. Please call with any questions. [facility]# [id number]
[2018-12-26] MEDS: Calcium Carb/Vit D 500 mg/200 U Tab PO SCH ×2 (10:19→16:32)
[2018-12-26] MEDS: Ferrous Sulfate 325 MG TAB PO SCH ×2 (10:19→13:13)
[2018-12-26] MEDS: POLYETHYLENE GLYCOL 3350 17 GM PACK PO SCH (10:19)
[2018-12-26] MEDS: buPROPion XL 150 mg T 24 H PO SCH (10:19)
--- NOTE | 2018-12-26 18:01 | Discharge Summary ---
DATE OF DISCHARGE: 12/26/2018 CHIEF COMPLAINT: Blood in the stool, not feeling well. FINAL DIAGNOSES: 1. Urinary tract infection, multidrug resistant. 2. Melena/GI bleeding. 3. Anemia. 4. Electrolyte abnormalities. 5. Dehydration. 6. Renal insufficiency. 7. Protein-calorie malnutrition. 8. Dementia. 9. Hypercholesterolemia. 10. Esophagitis. HISTORY: This is an 83-year-old female with a history of hypertension, GERD, dementia, psych disorder, admitted from a nursing facility initially secondary to blood in the stool. The patient is admitted to the ER, also noted to have urinary tract infection. PHYSICAL EXAMINATION: VITAL SIGNS: Blood pressure ____, respirations 18, pulse 60, temperature 97.2. GENERAL: An elderly female, appears her stated age. NECK: Supple. LUNGS: Equal breath sounds. A few rhonchi. HEART: Regular rate and rhythm. Systolic ejection murmur. ABDOMEN: Soft, globular. EXTREMITIES: Positive excoriation. NEUROLOGIC: Limited. HOSPITAL COURSE: The patient was admitted to telemetry and continued on oxygen, bronchodilator treatments, IV antibiotic, IV hydration. The patient was referred to Dr. Frias for GI. No endoscopy done during this admission; family apparently refused. The patient grew E. coli on the urine. The patient is on IV antibiotic and will need long-term acute care. CONDITION ON DISCHARGE: Fair. DISCHARGE INSTRUCTIONS: The patient is to continue treatment, long-term acute care. [facility]# [id number]
[2018-12-27 03:10] LABS: FOLIC ACID 10.7 ng/mL (>3.0)
--- NOTE | 2018-12-27 12:49 | Pathology Report ---
[id number] Collection Date: 12/26/2018 Surgeon: Dr. Janessa Whittaker Specimen Description: Rectal ulcer biopsy. Gross Description: Received in formalin is a single roche soft tissue fragment measuring 0.2 cm in greatest dimension. Totally submitted in one cassette. Microscopic Description: The histologic sections show benign colo-rectal mucosa with mild chronic inflammation present consisting of lymphocytes and plasma cells. There is no evidence for atypia. Diagnosis: Mild nonspecific chronic inflammation, rectal ulcer biopsy. [facility]# [id number] [facility]
== END 2018-12-26 20:00 | DRG 689 ==
LOC: ER 16:59 → TELE 18:55
PROVIDERS: ADMIT Internal Medicine; ATTEND Internal Medicine
PROC: 0DBP8ZX Excision of Rectum, Via Natural or Artificial Opening Endoscopic, Diagnostic (ICD-10-PCS; principal; 2018-12-26)
DX: N39.0 Urinary tract infection, site not specified (principal); K57.31 Diverticulosis of large intestine without perforation or abscess with bleeding; E44.0 Moderate protein-calorie malnutrition; K62.6 Ulcer of anus and rectum; D64.9 Anemia, unspecified; E87.6 Hypokalemia; N28.9 Disorder of kidney and ureter, unspecified; K64.8 Other hemorrhoids; I48.91 Unspecified atrial fibrillation; K21.9 Gastro-esophageal reflux disease without esophagitis; E86.0 Dehydration; E83.51 Hypocalcemia; I10 Essential (primary) hypertension; F03.90 Unspecified dementia, unspecified severity, without behavioral disturbance, psychotic disturbance, mood disturbance, and anxiety; K44.9 Diaphragmatic hernia without obstruction or gangrene; Z68.23 Body mass index [BMI] 23.0-23.9, adult; E78.00 Pure hypercholesterolemia, unspecified; K20.9 Esophagitis, unspecified; B96.20 Unspecified Escherichia coli [E. coli] as the cause of diseases classified elsewhere
CPT/HCPCS: 36415-UA; 71045-TC; 74000-TC; 80048-TC; 80053-TC; 80061-TC; 81001-TC; 82140-TC; 82150-TC; 82550-TC; 82607-90; 82746-90; 82948-90; 83690-TC; 83735-TC; 83880-TC; 84443-TC; 84484-TC; 85025-TC; 85610-TC; 87086-90; 93005; 94760; 96375; C9113; J0692; J0696; J2060; J2704; J7030; J7042; Z7610